=== PATIENT | female | born 1945 | race Caucasian/White ===

== ENCOUNTER → 2023-08-13 11:45 | Outpatient (REF) | payer MEDICARE, BC, SELFPAY ==
[2023-08-13 10:24] LABS: Iron 58 ug/dl (37-170)
[2023-08-13 10:33] LABS: Percent Saturation 16 % (20-50); Total Iron Binding Capacity 350 ug/dl (265-497)
[2023-08-13 10:58] LABS: Ferritin 64.1 ng/ml (11.1-264.0)
== END ==
LOC: OIDL 11:45
PROVIDERS: ATTENDING PHYSICIAN Internal Medicine Hematology & Oncology
DX: C34.11 Malignant neoplasm of upper lobe, right bronchus or lung (principal)
CPT/HCPCS: 82728; 83540; 83550

== ENCOUNTER 2023-08-25 18:37 | Inpatient (IN) | payer MEDICARE, BC, SELFPAY ==
[2023-08-25] VITALS (14 sets, daily range): BP systolic 100–123; BP diastolic 48–69; BMI 24.2
[2023-08-25 15:12] LABS: % Basophils 0.9 % (0-2); % Eosinophils 0.2 % (0-6); % Immature Granulocytes 0.7 % (0-0.5); % Lymphocytes 13.4 % (20.5-51.1); % Monocytes 3.2 % (1.7-9.3); % Neutrophils 81.6 % (42.2-75.2); Absolute Lymphocytes 0.6 10^3/uL (1.2-3.4); Absolute Monocytes 0.1 10^3/uL (0.1-0.6); Absolute Neutrophils 3.6 10^3/uL (1.4-6.5); Mean Corp Hgb Conc. 33.6 g/dL (33.0-37.0); Mean Corpuscular Hgb 26.8 pg (27.0-31.0); Mean Corpuscular Volume 79.8 fL (81.0-99.0); Mean Platelet Volume 8.2 fL (7.4-10.4); Nucleated Red Blood Cells % 0 %; Red Blood Cell Count 1.68 10^6/uL (4.20-5.40); Red Cell Dist. Width 19.9 % (11.5-14.5); White Blood Cell Count 4.4 10^3/uL (4.8-10.8)
[2023-08-25 15:29] LABS: Hematocrit 13.4 % (37.0-47.0); Hemoglobin 4.5 g/dL (12.0-16.0)
[2023-08-25 15:30] LABS: Platelet Count 7 10^3/uL (130-400)
[2023-08-25 15:47] LABS: ALT (SGPT) 22 U/L (0-35); AST (SGOT) 21 U/L (14-36); Albumin 2.7 g/dl (3.5-5.0); Alkaline Phosphatase 108 U/L (38-126); Blood Urea Nitrogen 35 mg/dl (7-17); Calcium 8.4 mg/dl (8.4-10.2); Carbon Dioxide 18 mmol/L (22-30); Chloride 104 mmol/L (98-107); Glucose 104 mg/dl (70-99); Sodium 135 mmol/L (135-145); Total Bilirubin 0.6 mg/dl (0.2-1.3); Total Protein 4.8 g/dl (6.3-8.2); eGFR > 60.00
--- NOTE | 2023-08-25 16:05 | ED.GENMED ---
History of Present Illness
General
Chief Complaint: Weakness
Source: patient
Exam Limitations: none
Time Seen by Provider: 08/25/23 15:10
Nursing documentation reviewed up to this point in time: agreed with
Travel History
Have you had any contact with someone who has COVID-19?: No
Do you have any symptoms of coronavirus? Fever > 100 degrees, chills, cough, shortness of breath, sore throat, loss of taste or smell, muscle aches, or headache?: No
History of Present Illness
History of Present Illness:
pt is a 78 y/o F with h/o dvt on eliquis (2.5 mg bid), lung ca with mets to colon on chemo
followed by dr. zuniga and just got referral to [facility] for colon mass but it is nonop
here with low energy, fatigue, exertional dyspnea today and black stool
pt says that her last chemo was 5 days ago
the following day she got neulasta shot
she normally gets constapited for a few days following her chemo which she was
had small BM a few days ago that was brown
3 days ago started having epistaxis after nose blowing; pt has chronic congestion
she stopped her eliquis that tnight
has continued to have nosebleeds off and on which stop on their own
but she felt her stomach was upset yesterday
then today had moderate sized black loose stool and felt lightheaded, winded with walking just 10 feet
called her pcp who told her to com ein
no ongoign active bleeding
has never had blood transfusion before
no fever, chills, cp, vomiting blood
Review of Systems
Review of Systems
Allergies reviewed?: Yes
All Other Systems: Not applicable
Phy Exam
Physical Exam
Physical Exam:
GENERAL: Alert , in no apparent distress, pale
EYE: pupils equal and reactive, pale
NECK: Supple
ENT: o/p clr, mmm.
CARDIAC: HR 100; .no edema
LUNGS: Clear breath sounds bilaterally, no acute respiratory distress, no wheezes/rales/rhonchi
ABDOMEN: Soft, without focal tenderness, no r/g, no cvat, normal bowel sounds
rectal done by RN with temperature: heme pos black stool per RN;
NEUROLOGICAL: Alert and oriented, no focal neuro deficits
SKIN: Warm and dry, skin intact. very pale
MUSCULOSKELETAL: No edema, well perfused. neg camilo's sign
PSYCH: Normal and appropriate interaction.
Course
Orders/Labs/Results
Orders:
Orders
08/25/23 Breakfast
Clear Liquid
At Your Request: Full Participation
Does patient need a safe tray?: No
08/25/23 14:28
EKG [Electrocardiogram (*1)] Urgent
Reason for Study: Fatigue / Weakness
08/25/23 14:29
EKG- Treatment ONCE
08/25/23 14:44
Type+Screen Urgent
CMP [Comprehensive Metabolic Panel] Urgent
Complete Blood Count/With Diff Urgent
Direct Bilirubin Urgent
Comment: ADD ON
Ferritin Urgent
Comment: ADD ON
Haptoglobin [S] Urgent
Comment: ADD ON
Iron Urgent
Comment: ADD ON
LDH Urgent
Comment: ADD ON
Reticulocyte Count Urgent
Comment: ADD ON
Total Iron Binding Urgent
Comment: ADD ON
08/25/23 16:04
Add On- LAB Urgent
Tests Added?: iron, ferritin, tibc
08/25/23 16:17
Blood Bank Products [* Blood Bank Products] Urgent
Blood Bank Products: *Packed RBC Leuko(PRBC's)
Quantity: 2
Transfuse Today: Yes
Reason: Bleeding
08/25/23 16:24
Pantoprazole [Protonix IV] 40 mg IV NOW STA
08/25/23 16:26
ONCOLOGY CONSULT Urgent
Consulting Provider: Jasmyn Salguero
Was physician already notified: Yes
08/25/23 16:30
Pantoprazole 80 mg/100 ml Nss [Protonix] 80 mg in 100 ml IV Q10H
08/25/23 16:46
Blood Bank Products [* Blood Bank Products] Urgent
Blood Bank Products: Platelet Leukoreduced Irr
Quantity: 1
Transfuse Today: Yes
Reason: Thrombocytopenia
08/25/23 17:20
Add On- LAB Routine
Tests Added?: LDH, direct bili, haptoglobin, retic
08/25/23 17:30
Platelet Antibodies Indirect [S] Routine
Platelet Assoc Ab, Direct [S] Routine
08/25/23 17:49
Admit/Transfer Patient As Directed
Co-Sign Provider:
Level of Care: Inpatient admission
Assign to:: Telemetry
Physician / Group: batsheva flores
Diagnosis: acute blood loss anemia
Reason for Telemetry: Other
Other Reason for Telemetry: acute blood loss anemia
Date to Stop Telemetry: 08/27/23
Time to Stop Telemetry: 11:00
Reason for Hospitalization: acute blood loss anemia
Expected length of stay greater than two midnights?: Yes
ELOS- Estimated Length of Stay in days: 3
I certify the patient meets the requirements for IP care: Yes
08/25/23 17:51
Code Status As Directed
Resuscitation Status: Full Code
08/25/23 19:21
Melatonin 5 mg PO HS PRN
08/25/23 19:21
Activity As Directed
Activity Level: As Tolerated
Compression Sleeves [Pneumatic Compression Sleeves] As Directed
Type: Thigh high
INT (Intravenous Needle Therapy) As Directed
Comment: Place 2 IV catheters of the largest bore possible until stable
Orthostatic Vital Signs As Directed
Orthostatic VS Frequency: Now
Comment: then every four hours for twenty-four hours
Vital Signs As Directed
Frequency: Per unit guidelines
DX Deep Vein Thrombosis Video Routine
08/25/23 20:00
Sodium Chloride [[place], Saline Mist] 2 sprays NASAL BID
08/25/23 22:00
CBC/No Diff [Complete Blood Count/No Diff] Routine
Rosuvastatin Calcium [Crestor] 10 mg PO HS
08/26/23 06:00
Basic Metabolic Panel IN AM
Complete Blood Count/No Diff IN AM
08/26/23 07:00
Levothyroxine [Synthroid] 25 mcg PO DAILY@0700
08/26/23 08:00
Cholecalciferol (Vitamin D3) [VITAMIN D3 (cholecalciferol)] 50 mcg PO DAILY
Lactobac/Bifidobac [Visbiome] 1 cap PO DAILY
Pantoprazole [Protonix IV] 40 mg IV BID
Tiotropium [place] 2.5 Mcg [Spiriva Respimat 2.5 Mcg] 2 puff INH R DAILY
08/27/23 06:00
Basic Metabolic Panel IN AM
Complete Blood Count/No Diff IN AM
08/27/23 11:00
DC Protocol for Telemetry ONCE
08/28/23 06:00
Basic Metabolic Panel IN AM
Complete Blood Count/No Diff IN AM
08/29/23 06:00
Basic Metabolic Panel IN AM
Complete Blood Count/No Diff IN AM
08/30/23 06:00
Basic Metabolic Panel IN AM
Complete Blood Count/No Diff IN AM
Abnormal Lab Results
08/25/23
14:44
WBC 4.4 L 10^3/uL
(4.8-10.8)
RBC 1.68 L 10^6/uL
(4.20-5.40)
Hgb 4.5 L* g/dL
(12.0-16.0)
Hct 13.4 L* %
(37.0-47.0)
MCV 79.8 L fL
(81.0-99.0)
MCH 26.8 L pg
(27.0-31.0)
RDW 19.9 H %
(11.5-14.5)
Plt Count 7 L* 10^3/uL
(130-400)
Absolute Lymphs (auto) 0.6 L 10^3/uL
(1.2-3.4)
Immature Gran % 0.7 H %
(0-0.5)
Neutrophils % 81.6 H %
(42.2-75.2)
Lymphocytes % 13.4 L %
(20.5-51.1)
Retic Count 0.3 L %
(0.4-2.8)
Carbon Dioxide 18 L mmol/L
(22-30)
BUN 35 H mg/dl
(7-17)
Glucose 104 H mg/dl
(70-99)
% Saturation 53 H %
(20-50)
Direct Bilirubin 0.5 H mg/dl
(0.0-0.4)
Lactate Dehydrogenase 118 L U/L
(120-246)
Total Protein 4.8 L g/dl
(6.3-8.2)
Albumin 2.7 L g/dl
(3.5-5.0)
Crossmatch IS Only See Detail
08/25/23 14:44
08/25/23 14:44
Vital Signs
Initial and Last Documented VS:
Initial Vital Signs
Pulse Resp BP
98 28 111/48
08/25/23 14:30 08/25/23 14:30 08/25/23 14:30
Last Documented Vital Signs
Temp Pulse Resp BP Pulse Ox
98.0 F 100 27 110/60 100
08/25/23 19:54 08/25/23 18:30 08/25/23 18:30 08/25/23 19:54 08/25/23 19:54
MDM/Problems Addressed
Differential Diagnosis Includes:
anemia, GI bleed
MDM/Problems Addressed:
78 y/o F with ho metastatic lung ca to the colon on chemo; had last chemo on friday, got a shot of neulasta on ; started having spontaneous epistaxis starting friday with blowing her nose; she is on eliquis for h/o DVT, 2.5 mg bid; she
stopped it friday night; continued to have some controlled nose bleeds all weekend from both nostrils; then 1 episode black stool today, loose. with exertional dyspnea; bp is stable, hr is 100, afebrile; pt is pale, no active bleeding on exam; heme
POS black stool, hg is 4.5 and plt are 7; previous plt is 300s;
pt was consented for blodo and platelets
is poke with internal combustion engine subassembler ooncologist dr. mccann who agreed with plan
IV PPI drip
and i let dr. carlson know from GI
admit to medicine.
*Critical Care Note
Total Time (30-74mins, 75-104mins- exclusive of procedures): Not Applicable
ED Attending Note
-
Portions of this chart may have been created with voice recognition software.� Occasional wrong word or��sound alike� substitutions may have occurred due to the inherent limitations of voice recognition software.
Discharge Plan
Departure
Patient Disposition: Admit
Date of Disposition: 08/25/23
Time of Disposition: 16:25
Admit to: Med/Surg
Presentation/result/management discussed w/ accepting MD/DO: Hospitalist
Condition: Fair
Covid-19: Not Applicable
Discharge Problem:
Symptomatic anemia, Thrombocytopenia, GI bleed
Interventions
Interventions:
*Risk Screen - Suicide Last Done: 08/25/23 14:30
*General Assessment Last Done: 08/25/23 14:32
*Neglect/Abuse Screening Last Done: 08/25/23 14:30
ED- Fall Risk Assessment Last Done: 08/25/23 14:33
*ED COVID-19 Vaccine History Last Done: 08/25/23 14:36
*Nursing Disposition Last Done: 08/25/23 19:36
LL-Aaywgq-Jxkaeyyfvo Assessment Last Done: 08/25/23 15:51
ED- Cardiac Assessment Last Done: 08/25/23 15:51
ED-EENT Assessment Last Done: 08/25/23 15:51
ED- Neurological Assessment Last Done: 08/25/23 15:51
ED- Pulmonary Assessment Last Done: 08/25/23 15:51
Discharge Date and Time
Discharge Date/Time: 08/25/23 19:36
[2023-08-25 16:25] LABS: Iron 153 ug/dl (37-170)
[2023-08-25 16:35] LABS: Percent Saturation 53 % (20-50); Total Iron Binding Capacity 285 ug/dl (265-497)
[2023-08-25] MEDS: PROTONIX IV 40 MG IV (17:05)
[2023-08-25] MEDS: PROTONIX 100 IV (17:06)
--- NOTE | 2023-08-25 17:28 | HPS.HSE ---
Addendum entered and electronically signed by Cliff Mejia MD 08/25/23 18:05:
I saw and examined the patient.
The COMMERCIAL SEWING INSTRUCTOR's note was reviewed and I agree with the note.
Comment:
78-year-old female past medical history of lung cancer with metastasis to the colon status post recent colonoscopy and referral to [facility]. Not a surgical candidate and plans for chemotherapy. Received chemotherapy 1 week ago.
Coming in with severe weakness and tarry stool. Denies lightheadedness or dizziness. States stopping Eliquis on Friday night. Patient stated she got second opinion at [facility] who recommended against surgery and recommended to
continue with chemotherapy. Per [facility], if no improvement and repeat PET scan then plan to consider newly approved chemo/immunotherapy per patient. No nausea or vomiting or hematemesis.
Gen: pale,
cards s1 s2 rrr
pulm cta bl
abd +bs, soft, non distended, non tender
neuro aox 3. non focal grossly intact. CN II-XII intact
Psych pleasant
ext no edema
Impression
Symptomatic anemia
Pancytopenia likely secondary to chemotherapy
Lower GI bleed likely secondary to colonic mass exacerbated by Eliquis and severe thrombocytopenia
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
Hypothyroidism
Insomnia
History of DVT
Plan
Will Receive 2 units of PRBC and 1 unit platelet
Check H&H later tonight and transfuse as needed
Transfuse for hemoglobin less than 7 or platelet less than 10K
Clear liquid diet
Per gastroenterology Dr. Felipe no acute GI intervention is required as patient with severe thrombocytopenia and patient with known colonic mass. Recommending oncology evaluation.
If any profuse bleeding and repeat episode consider CT angiogram abdomen pelvis.
Oncology has been consulted
PPI twice daily and DC drip
DVT prophylaxis SCDs setting of severe thrombocytopenia
Prognosis guarded
Discussed with spouse at bedside in detail.
I spent a total of 78 minutes with the patient or on the floor. More than 50% of this time involved counseling and coordination of care.
Original Note:
Family Physician
-
Family Physician: Margaret Diaz
Chief Complaint
-
black stools
History of Present Illness
78 y/o F with h/o dvt on eliquis (2.5 mg bid), lung ca with mets to colon on chemo followed by dr. zuinga presented to us with fatigue, weakness, exertional dyspnea for past few days. Stated black loose stool today. Patient was noted to have
nosebleed on Friday, which stopped by itself. Patient stopped taking Eliquis tonight. Patient stated some headache, dizziness. Denied fever, chills, chest pain.. Patient does have some abdominal tenderness. Denied dysuria hematuria. She got
her chemo last Friday.
On arrival noted to have a hemoglobin of 4.5, platelets 7. 2 units of PRBCs and 1 unit of platelets ordered. Admitting for further management.
Medical History
Past Medical History
Past Medical History: Reports Other
Additional Past Medical History:
Lung cancer mets to the colon
Left upper extremity DVT
Hypothyroidism
Hyperlipidemia
Past Surgical History: Reports None
Social History
Tobacco: Former Smoker
Alcohol: Occasional
Drug: None
Personal:
Living: With Family
Family History
Family History: Not pertinent
Allergies / Home Medications
Allergies reflects when Allergies were last updated in [employer].
Home Medications with original date entered in [employer]
Allergy/Medication List:
Allergies
Allergy/AdvReac Type Severity Reaction Status Date / Time
cat dander Allergy Unknown Unknown Verified 08/25/23 14:41
seasonal Allergy Unknown Uncoded 08/25/23 14:41
Home Medications
rosuvastatin 10 mg tablet 10 mg PO HS 02/12/22
umeclidinium 62.5 mcg-vilanterol 25 mcg/actuation powdr for inhalation (Anoro Ellipta) 1 inh inhalation R DAILY 07/01/22
cholecalciferol (vitamin D3) 50 mcg (2,000 unit) capsule (Vitamin D3) 50 mcg PO DAILY 11/11/22
lactobacillus comb no.10 20 billion cell capsule (Probiotic) 20,000 mmu cells PO DAILY 11/11/22
loratadine 10 mg tablet (Claritin) 10 mg PO . DIRECTED 11/11/22
ondansetron 8 mg disintegrating tablet 8 mg PO Q8H PRN nausea 11/11/22
prochlorperazine maleate 10 mg tablet (Compazine) 10 mg PO Q6H PRN nausea 11/11/22
Gemzar + Carboplatin 1 dose IV Q3W 08/25/23
apixaban 2.5 mg tablet (Eliquis) 2.5 mg PO BID 08/25/23
gemcitabine 1 gram intravenous solution 0 mg IV Q4W 08/25/23
levothyroxine 25 mcg tablet 25 mcg PO DAILY 08/25/23
melatonin 5 mg tablet 5 mg PO HS PRN insomnia 08/25/23
Review of Systems
-
Constitutional: Reports No Symptoms
EENT: Reports No Symptoms
Respiratory: Reports Trouble Breathing
Cardiac: Reports No Symptoms
Abdomen/GI: Reports Bloody Stools
: Reports No Symptoms
Musculoskeletal: Reports No Symptoms
Skin: Reports No Symptoms
Neurological: Reports Dizzy, Headache and Weakness
Endocrine: Reports No Symptoms
Hematologic/Lymphatic: Reports No Symptoms
Psych: Reports No Symptoms
Physical Exam
Vital Signs
Vital Signs
Temp Pulse Resp BP Pulse Ox
97.2 F 96 20 109/52 100
08/25/23 14:35 08/25/23 17:12 08/25/23 17:12 08/25/23 17:12 08/25/23 17:12
Physical Exam
General: Well Developed, Well Nourished and No Apparent Distress
HEENT: NormoCephalic, Moist mucous membranes and Atraumatic
Respiratory: Clear
Cardiac: S1/S2 and Regular Rhythm; No Murmur or Rub
GI: Soft, Non Tender, Non Distended and Normal Bowel Sounds; No Organomegaly
Rectal: Deferred by Provider
Musculoskeletal: No Clubbing, No Cyanosis and No Edema
Skin: No Rash
Neuro: AO x 3 and Nonfocal/grossly intact
Psych: Calm
Laboratory Results
-
08/25/23 14:44
08/25/23 14:44
Laboratory Results
Total Bilirubin 0.6 mg/dl (0.2-1.3) 08/25/23 14:44
AST 21 U/L (14-36) 08/25/23 14:44
ALT 22 U/L (0-35) 08/25/23 14:44
Alkaline Phosphatase 108 U/L (38-126) 08/25/23 14:44
Data Reviewed
-
Lab Data: Labs Reviewed by me
Impression/Plan
-
#blacks stools with exertional dyspnea/fatigue likely acute blood loss anemia
-heme positive black stool
-hgb 4.5
-Transfusing with 2 units of blood
-Trend hemoglobin
-transfuse if hgb less than 7 and platelets less than 10
-cbc at 10pm
-PPI BID
-clear liquid diet
#metastatic lung ca/colon ca/pancytopenia
-wbc 4.4,hgb 4.5, platelets 7
-followed by Dr. Zuniga
-Transfusing with 2 units of PRBCs and 1 unit of platelets
#hxt of right upper extremity DVT
-Hold Eliquis
# Hypothyroidism
-Levothyroxine
#-Hyperlipidemia
-Statin
# DVT prophylaxis
-SCD
# CODE STATUS
-Full code
[2023-08-25 18:05] LABS: Reticulocyte Count 0.3 % (0.4-2.8)
[2023-08-25 18:11] LABS: Direct Bilirubin 0.5 mg/dl (0.0-0.4); LDH 118 U/L (120-246)
--- NOTE | 2023-08-25 19:08 | CON.ONC ---
Impression
Impression
Gemcitabine-associated thrombocytopenia
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
Non-small cell lung cancer, metastatic, heavily pretreated
Epistaxis
Dark stools
Plan
Plan
Patient is without evidence of microangiopathic process but coags sent.
Suspect her cytopenias are due to chemotherapy in setting of multiple previous regimens.
I am not sure what drug was recommended for her at [place]. We will call for the visit report. She would have to be significantly dose reduced in order to stay on the current regimen.
Agree with blood transfusions. Please also transfuse platelets.
Thank you for consultation will follow along with you.
Patient History
History of Present Illness
78-year-old woman, patient of Dr. Rodriguez for metastatic non-small cell lung cancer. She is heavily pretreated, started with carboplatin, Alimta, and Keytruda. She apparently had a mixed response. More recently she was treated with Cyramza
Taxotere, again with mixed response. She started gemcitabine and carboplatin on 131 and had cycle 1 day 8 on August 20. She is also on Eliquis 2.5 twice daily. A few days ago she started to have nosebleeds and held the Eliquis. Today, she
developed dark stools and fatigue. In the ED she was found to have a hemoglobin of 4.5 with platelets of 7. By comparison, blood counts on 08/18/2023 showed hemoglobin of 9.4 and platelets of 200. Admits to exertional dyspnea. Of note, recent
Nex[employer] sequencing showed K-samia G12V, T p53 and KEAP1 mutations. She was seen at [place] within the last week and had was advised that there is a new drug that was just approved by the FDA that she would be a candidate for. Currently, she is
without complaint other than fatigue. She is awake and alert, sitting in hospital bed in the ER.
Past-Medical/Surgical History
PMHx:
Asthma, high cholesterol, osteoarthritis
PSHx:
Facelift, pilonidal cyst surgery
Soc:
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
Fam:
Mother had stomach cancer.
Patient Medication
Medication Instructions Recorded Confirmed Last Taken Type
rosuvastatin 10 mg tablet 10 mg PO HS 02/12/22 08/25/23 07/01/22 History
umeclidinium 62.5 mcg-vilanterol 1 inh inhalation R DAILY 07/01/22 08/25/23 07/01/22 History
25 mcg/actuation powdr for
inhalation (Anoro Ellipta)
cholecalciferol (vitamin D3) 50 50 mcg PO DAILY 11/11/22 08/25/23 Unknown History
mcg (2,000 unit) capsule (Vitamin
D3)
lactobacillus comb no.10 20 20,000 mmu cells PO DAILY 11/11/22 08/25/23 Unknown History
billion cell capsule (Probiotic)
loratadine 10 mg tablet (Claritin) 10 mg PO . DIRECTED 11/11/22 08/25/23 Unknown History
ondansetron 8 mg disintegrating 8 mg PO Q8H PRN nausea 11/11/22 08/25/23 Unknown History
tablet
prochlorperazine maleate 10 mg 10 mg PO Q6H PRN nausea 11/11/22 08/25/23 Unknown History
tablet (Compazine)
Gemzar + Carboplatin 1 dose IV Q3W 08/25/23 08/25/23 08/13/23 History
apixaban 2.5 mg tablet (Eliquis) 2.5 mg PO BID 08/25/23 08/25/23 3 Days Ago History
~08/22/23
gemcitabine 1 gram intravenous 0 mg IV Q4W 08/25/23 08/25/23 08/20/23 History
solution
levothyroxine 25 mcg tablet 25 mcg PO DAILY 08/25/23 08/25/23 Unknown History
melatonin 5 mg tablet 5 mg PO HS PRN insomnia 08/25/23 08/25/23 Unknown History
Active Medications
Generic Name Dose Route Start Last Admin
Trade Name Eloy PRN Reason Stop Dose Admin
Pantoprazole Sodium 80 mg in 100 mls @ 10 mls/hr 08/25/23 16:30 08/25/23 17:06
Protonix IV 100 mls
Q10H ROMAN Administration
8 MG/HR
Review of Systems
-
History Source: Patient and Records
All Other Systems: Reviewed and Negative
Constitutional: Reports Fatigue and Weakness
EENT: Reports No Symptoms
Respiratory: Reports Cough and Trouble Breathing
Cardiac: Reports No Symptoms
GI: Reports Black Stools
: Reports No Symptoms
Musculoskeletal: Reports No Symptoms
Skin: Reports No Symptoms
Neuro: Reports No Symptoms
Endocrine: Reports No Symptoms
Hematologic/Lymphatic: Reports Bleeding
Allergy / Immunology: Reports No Symptoms
Psych: Reports No Symptoms
Physical Exam
-
General: Well Developed, Well Nourished, Comfortable and Other (Pale)
HEENT: Moist Mucous Membranes; Negative Jaundice
Cardiology: Normal Sinus Rhythm, S1 and S2
Pulmonary: Rhonchi
GI: Soft
Musculoskeletal: No Cyanosis and No Edema
Neurology: Non Focal
Skin: Warm and Dry
Hematologic / Lymphatic: No Lymphadenopathy
Psych: Calm and Intact Judgement/Insight
Labs
Lab Results
WBC 4.4 10^3/uL (4.8-10.8) L 08/25/23 14:44
RBC 1.68 10^6/uL (4.20-5.40) L 08/25/23 14:44
Hgb 4.5 g/dL (12.0-16.0) L* 08/25/23 14:44
Hct 13.4 % (37.0-47.0) L* 08/25/23 14:44
MCV 79.8 fL (81.0-99.0) L 08/25/23 14:44
MCH 26.8 pg (27.0-31.0) L 08/25/23 14:44
MCHC 33.6 g/dL (33.0-37.0) 08/25/23 14:44
RDW 19.9 % (11.5-14.5) H 08/25/23 14:44
Plt Count 7 10^3/uL (130-400) L* 08/25/23 14:44
MPV 8.2 fL (7.4-10.4) 08/25/23 14:44
Abs Immat Gran (auto) 0.0 10^3/uL (0-0.05) 08/25/23 14:44
Absolute Neuts (auto) 3.6 10^3/uL (1.4-6.5) 08/25/23 14:44
Absolute Lymphs (auto) 0.6 10^3/uL (1.2-3.4) L 08/25/23 14:44
Absolute Monos (auto) 0.1 10^3/uL (0.1-0.6) 08/25/23 14:44
Absolute Eos (auto) 0.0 10^3/uL (0-0.7) 08/25/23 14:44
Absolute Basos (auto) 0.0 10^3/uL (0-0.2) 08/25/23 14:44
Immature Gran % 0.7 % (0-0.5) H 08/25/23 14:44
Neutrophils % 81.6 % (42.2-75.2) H 08/25/23 14:44
Lymphocytes % 13.4 % (20.5-51.1) L 08/25/23 14:44
Monocytes % 3.2 % (1.7-9.3) 08/25/23 14:44
Eosinophils % 0.2 % (0-6) 08/25/23 14:44
Basophils % 0.9 % (0-2) 08/25/23 14:44
Creatinine 0.7 mg/dL (0.6-1.0) 08/25/23 14:44
Personally reviewed peripheral smear: Very few platelets, agree with automated count. No RBC fragments.
Vital Signs
Vital Signs
Temp Pulse Resp BP Pulse Ox
98 F 100 27 115/69 99
08/25/23 18:10 08/25/23 18:30 08/25/23 18:30 08/25/23 18:30 08/25/23 18:15
--- NOTE | 2023-08-25 19:30 | PTCARENOTE ---
Pt received to floor awake & alert x3; very fatigued & weak. 1st unit PRBC's infusing; no adverse reaction noted.
[2023-08-25] MEDS: OCEAN, SALINE MIST NASAL (22:00)
--- NOTE | 2023-08-25 23:00 | PTCARENOTE ---
Pt w/nosebleed from Rt nostril after pt blew nose after sneezing. After about 45 min, bleeding stopped w/pressure applied first by pt, then by nurse. Instructions given to pt to avoid blowing nose and sneezing if possible.
[2023-08-25] MEDS: CRESTOR 10 MG PO (23:15)
[2023-08-26] VITALS (19 sets, daily range): BP systolic 100–132; BP diastolic 49–86; PULSE 91–98; BMI 24.2
--- NOTE | 2023-08-26 06:00 | SUR.OPER ---
One more minor nose bleed which resolved quickly. 2 Units PRBC's & 1 Unit platelets infused this shift w/no adverse effects noted.
[2023-08-26 07:07] LABS: Mean Corp Hgb Conc. 34.3 g/dL (33.0-37.0); Mean Corpuscular Hgb 27.9 pg (27.0-31.0); Mean Corpuscular Volume 81.4 fL (81.0-99.0); Mean Platelet Volume 9.5 fL (7.4-10.4); Red Blood Cell Count 2.15 10^6/uL (4.20-5.40); Red Cell Dist. Width 16.2 % (11.5-14.5); White Blood Cell Count 3.1 10^3/uL (4.8-10.8)
[2023-08-26 07:15] LABS: Blood Urea Nitrogen 30 mg/dl (7-17); Calcium 7.7 mg/dl (8.4-10.2); Carbon Dioxide 21 mmol/L (22-30); Chloride 111 mmol/L (98-107); Estimated Creatinine Clearance 55 ml/min; Glucose 87 mg/dl (70-99); Potassium 3.5 mmol/L (3.5-5.1); Sodium 134 mmol/L (135-145); eGFR > 60.00
[2023-08-26 07:17] LABS: INR 1.16; PT 14.6 Sec (11.4-14.6)
[2023-08-26 07:18] LABS: APTT 35.4 Sec (23.4-35.0); Fibrinogen 424 MG/DL (199-459); Hematocrit 17.5 % (37.0-47.0); Platelet Count 18 10^3/uL (130-400)
[2023-08-26 07:21] LABS: D-Dimer 0.46 ug/mlFEU (0.00-0.50)
[2023-08-26] MEDS: SPIRIVA RESPIMAT 2.5 MCG 2 PUFF INH (07:22)
[2023-08-26] MEDS: STRIVERDI RESPIMAT 2 PUFF INH (07:22)
[2023-08-26] MEDS: SYNTHROID 25 MCG PO (07:52)
[2023-08-26 08:04] LABS: Hepatitis C Antibody Negative (Negative)
[2023-08-26] MEDS: VITAMIN D3 (cholecalciferol) 50 MCG PO (09:49)
[2023-08-26] MEDS: OCEAN, SALINE MIST 2 SPRAYS NASAL ×2 (09:49→21:42)
[2023-08-26] MEDS: VISBIOME 1 CAP PO (09:49)
[2023-08-26] MEDS: NSS (PRESERVATIVE FREE) 10 ML IV ×2 (09:55→21:42)
[2023-08-26] MEDS: PROTONIX IV 40 MG IV ×2 (09:55→21:42)
--- NOTE | 2023-08-26 12:00 | W.PN.HOSP.TC ---
Today's Communication/Plan
-
Transfuse PRBC
Trend CBC
onc recs
ENT eval
Assessment / Plan
Assessment / Plan
#Lower GI bleed likely secondary to colonic mass exacerbated by Eliquis and severe thrombocytopenia
-heme positive black stool on admisison
-hgb 6 and will transfuse additional 1u today and recheck later today
-Trend hemoglobin
-transfuse if hgb less than 7 and platelets less than 10
-PPI BID
-full liquids and ADAT
-Per gastroenterology Dr. Felipe no acute GI intervention is required as patient with severe thrombocytopenia and patient with known colonic mass.� Recommending oncology evaluation.�
-If any profuse bleeding and repeat episode consider CT angiogram abdomen pelvis.
-Oncology on board
#Epistaxis likely in setting of thrombocytopenia and worsened by Eliquis
-saline spray BID
-Holding eliquis
-ENT eval
#Pancytopenia likely worsen due to severe chemotherapy
#Symptomatic anemia worsened due to chemotherapy/Eliquis/suspected lower GI bleed and epistaxis
-Hemoglobin is 6 and will transfuse additional 1 unit of PRBC
-Platelets at 18 K. Trend and transfuse if less than 10 or otherwise if with acute bleeding
-Per oncology no evidence of microangiopathic hemolysis.
-Trend CBC and transfuse
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
-not a surgical candidate at moment per [facility] per pt
-Onc on board.
#hxt of right upper extremity DVT
-Hold Eliquis
# Hypothyroidism
-Levothyroxine
#-Hyperlipidemia
-Statin
# DVT prophylaxis
-SCD
# CODE STATUS
-Full code
Long-term prognosis guarded
Anticipated Discharge: > 48 hours
Subjective/Interval History
-
Date of Service: August 26, 2023
feeling better
No further black tarry stools
Had episode of severe epistaxis overnight and remains with intermittent epistaxis mild
Objective Data
-
Labs:
Laboratory Results
08/26/23 08/26/23
06:00 06:25
WBC Cancelled 3.1 L
Hgb Cancelled 6.0 L* D
Hct Cancelled 17.5 L*
Plt Count Cancelled 18 L* D
PT 14.6
INR 1.16
APTT 35.4 H
Sodium 134 L
Potassium 3.5
Chloride 111 H
Carbon Dioxide 21 L
BUN 30 H
Creatinine 0.7
Glucose 87
Calcium 7.7 L
Vital Signs:
Vital Signs
Temp Pulse Resp BP Pulse Ox
98.5 F 95 18 112/49 98
08/26/23 11:35 08/26/23 11:35 08/26/23 11:35 08/26/23 11:35 08/26/23 11:35
I&O
08/25/23 08/26/23 08/27/23
06:59 06:59 06:59
Intake Total 829 / 829 0 / 0
Balance 829 / 829 0 / 0
Physical Exam
-
General: Well Developed and No Apparent Distress
HEENT: Normocephalic, Atraumatic, Moist Mucous Membranes and Other (R chest port placed )
Respiratory: Clear to Auscultation
Cardiac: Regular Rhythm and S1/S2; Negative Murmur, Rub or Gallop
GI: Soft, Nontender, Nondistended and Normal Bowel Sounds; Negative Organomegaly
Rectal: Deferred by Provider
Musculoskeletal: No Clubbing, No Cyanosis and No Edema
Skin: Negative Rash
Neuro: Awake, AO x 3, No Motor Deficits and Nonfocal/Grossly Intact
Psych: Calm
Data Reviewed
-
Total Time Spent with Patient (in minutes): 55
--- NOTE | 2023-08-26 13:08 | CON.MD ---
Consultation - Medical
-
Epistaxis
78 yo c metastatic lung CA presented c weakness, anemia, lower GI bleed from colonic met
Was on Eliquis, being held
Pancytopenia from chemo
Has been also having mostly R sided epistaxis last few days
Pt not actively bleeding
Hgb - 6.o, wbc - 3.1, plt - 16
Nose - dried blood and scab more R than L, no active bleeding
OC - dry
Epistaxis
Mostly due to thrombocytopenia
Cauterized some raw mucosa with silver nitrate
Polysporin ointment applied
Would cont with ointment qhs and prn
Contact again if needed
[2023-08-26 16:38] LABS: % Basophils 0.6 % (0-2); % Immature Granulocytes 1.2 % (0-0.5); % Lymphocytes 18.4 % (20.5-51.1); % Neutrophils 74.8 % (42.2-75.2); Absolute Lymphocytes 0.6 10^3/uL (1.2-3.4); Absolute Monocytes 0.2 10^3/uL (0.1-0.6); Absolute Neutrophils 2.6 10^3/uL (1.4-6.5); Hemoglobin 7.1 g/dL (12.0-16.0); Mean Corp Hgb Conc. 35.3 g/dL (33.0-37.0); Mean Corpuscular Hgb 29.1 pg (27.0-31.0); Mean Corpuscular Volume 82.4 fL (81.0-99.0); Mean Platelet Volume 9.5 fL (7.4-10.4); Nucleated Red Blood Cells % 0 %; Red Blood Cell Count 2.44 10^6/uL (4.20-5.40); Red Cell Dist. Width 15.7 % (11.5-14.5); White Blood Cell Count 3.4 10^3/uL (4.8-10.8)
[2023-08-26 16:52] LABS: Hematocrit 20.1 % (37.0-47.0)
[2023-08-26 16:53] LABS: Platelet Count 11 10^3/uL (130-400)
--- NOTE | 2023-08-26 16:58 | CM ---
Alert awake oriented patient who lives with her Juan who lives in a 3 story home with 3 steps to enter and an elevator.She is independent in driving and in all activities of daily living.Offered VN she declined.Pt receiving blood
transfusion today.
No adaptive devices
Never had VN/SNF
Pharmacy [facility]
PCP Margaret Darden
PLAN Home declined VN
--- NOTE | 2023-08-26 18:32 | W.PN.ONC ---
Today's Communication / Plan
-
continue transfusion support
Impression
Impression
Gemcitabine-associated thrombocytopenia
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
Non-small cell lung cancer, metastatic, heavily pretreated
Epistaxis
Dark stools
Plan
Plan
Patient is without evidence of microangiopathic process but coags sent.
Suspect her cytopenias are due to chemotherapy in setting of multiple previous regimens.
I am not sure what drug was recommended for her at [place]. We will call for the visit report. She would have to be significantly dose reduced in order to stay on the current regimen.
Agree with blood transfusions for HGB <8 and platelets <20
Thank you for consultation will follow along with you.
Subjective/Objective
Subjective/Objective
less fatigued--no overt bleeding
Vital Signs:
Vital Signs
Temp Pulse Resp BP Pulse Ox
98.9 F 95 18 132/69 99
08/26/23 17:20 08/26/23 17:20 08/26/23 17:20 08/26/23 17:20 08/26/23 16:40
Lab Results:
Laboratory Data
WBC Cancelled 08/26/23 17:00
Hgb Cancelled 08/26/23 17:00
Plt Count Cancelled 08/26/23 17:00
PT 14.6 Sec (11.4-14.6) 08/26/23 06:25
INR 1.16 08/26/23 06:25
APTT 35.4 Sec (23.4-35.0) H 08/26/23 06:25
eGFR > 60.00 08/26/23 06:25
Orders
Orders
Orders From Last 24 Hours
08/26/23 12:13
Blood Bank Products [* Blood Bank Products] Urgent
--- NOTE | 2023-08-26 19:32 | PTCARENOTE ---
Received patient this am AAOx3. Pt forgetful at times. [place] with bilateral hearing aides. Pt's HGB 6.0/17.5 this am after 2 units of PRBC's overnight. Platelets 18 this am after platelet transfusion over night. Pt transfused with 1 units of
PRBC's an Platelets today. HBG- 7.1 after PRBC's and Platelets 11. Pt tolerated full liquids. Pt had one bloody bowel movement this afternoon. Dr. Mejia made aware of Bloody bowel movement an Lab results. Pt offered no complaints. Made patient
comfortable. Cont to assess patient status.
[2023-08-26] MEDS: CRESTOR 10 MG PO (21:43)
[2023-08-27] VITALS (11 sets, daily range): BP systolic 101–135; BP diastolic 48–73; PULSE 94–100
[2023-08-27] MEDS: SYNTHROID 25 MCG PO (05:16)
[2023-08-27] MEDS: SPIRIVA RESPIMAT 2.5 MCG 2 PUFF INH (07:17)
[2023-08-27] MEDS: STRIVERDI RESPIMAT 2 PUFF INH (07:17)
--- NOTE | 2023-08-27 07:26 | W.PN.ONC2 ---
Today's Communication / Plan
-
Await follow-up CBC results. If improved, patient is stable for discharge home with oncologic follow-up.
Impression
Impression
Gemcitabine-associated thrombocytopenia
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
Non-small cell lung cancer, metastatic, heavily pretreated
Epistaxis
Colonic mass -biopsy confirmed second to metastatic lung cancer
Dark stools
Plan
Plan
Patient is without evidence of microangiopathic process. Coags are normal.
Her cytopenias are due to chemotherapy in setting of multiple previous regimens.
Agree with supportive care for now. Blood transfusions for HGB <8 and platelets <20.
Clearly this salvage regimen may need to be adjusted because of development of severe cytopenias. Patient will follow-up with Dr. Rodriguez and Dr. Bhagat at [place]
Subjective/Objective
Chief Complaint
ACS Heme Onc
Subjective
Felling better. Epistaxis resolved s/p cauterization w silver nitrate 08/26 by ENT. Receiving transfusions for chemotherapy associated anemia and thrombocytopenia. Follow-up CBC from this a.m. is pending.
Vital Signs:
Vital Signs
Temp Pulse Resp BP Pulse Ox
98.4 F 89 16 101/49 100
08/27/23 05:23 08/27/23 07:20 08/27/23 07:20 08/27/23 05:23 08/27/23 07:20
Lab Results:
Laboratory Data
WBC Cancelled 08/26/23 17:00
Hgb Cancelled 08/26/23 17:00
Plt Count Cancelled 08/26/23 17:00
PT 14.6 Sec (11.4-14.6) 08/26/23 06:25
INR 1.16 08/26/23 06:25
APTT 35.4 Sec (23.4-35.0) H 08/26/23 06:25
eGFR > 60.00 08/26/23 06:25
Physical Exam
HEENT: No Jaundice
Cardiology: S1 and S2
Pulmonary: Clear
GI: Soft
[2023-08-27 08:22] LABS: Hematocrit 21.6 % (37.0-47.0); Hemoglobin 7.7 g/dL (12.0-16.0); Mean Corp Hgb Conc. 35.6 g/dL (33.0-37.0); Mean Corpuscular Hgb 29.6 pg (27.0-31.0); Mean Corpuscular Volume 83.1 fL (81.0-99.0); Mean Platelet Volume 9.5 fL (7.4-10.4); Platelet Count 31 10^3/uL (130-400); Red Cell Dist. Width 16.1 % (11.5-14.5)
[2023-08-27 08:23] LABS: White Blood Cell Count 2.2 10^3/uL (4.8-10.8)
[2023-08-27] MEDS: NSS (PRESERVATIVE FREE) 10 ML IV ×2 (08:58→20:11)
[2023-08-27] MEDS: VITAMIN D3 (cholecalciferol) 50 MCG PO (08:59)
[2023-08-27] MEDS: PROTONIX IV 40 MG IV ×2 (08:59→20:11)
[2023-08-27] MEDS: VISBIOME 1 CAP PO (08:59)
[2023-08-27] MEDS: OCEAN, SALINE MIST 2 SPRAYS NASAL ×2 (08:59→20:11)
[2023-08-27 09:50] LABS: Blood Urea Nitrogen 27 mg/dl (7-17); Calcium 8.3 mg/dl (8.4-10.2); Carbon Dioxide 20 mmol/L (22-30); Chloride 108 mmol/L (98-107); Estimated Creatinine Clearance 55 ml/min; Glucose 89 mg/dl (70-99); Potassium 3.5 mmol/L (3.5-5.1); Sodium 135 mmol/L (135-145); eGFR > 60.00
--- NOTE | 2023-08-27 11:17 | W.PN.HOSP.TC ---
Addendum entered and electronically signed by Cliff Mejia MD 08/27/23 14:17:
Patient states multiple maroon-colored stools and would like to be monitored overnight. Completed blood transfusion.
Original Note:
Today's Communication/Plan
-
PRBC transfusion today
Plan for tentative home later today
hold eliquis
Assessment / Plan
Assessment / Plan
#Lower GI bleed likely secondary to colonic mass exacerbated by Eliquis and severe thrombocytopenia
-heme positive black stool on admisison
-hgb 7.7 and will transfuse additional unit
-Trend hemoglobin
-transfuse if hgb less than 8 and platelets less than 20 per ONC
-PPI BID
-full liquids and ADAT
-Per gastroenterology Dr. Felipe no acute GI intervention is required as patient with severe thrombocytopenia and patient with known colonic mass.� Recommending oncology evaluation.�
-If any profuse bleeding and repeat episode consider CT angiogram abdomen pelvis.
-Oncology on board
#Epistaxis likely in setting of thrombocytopenia and worsened by Eliquis
-saline spray BID
-Holding eliquis
-ENT eval
#Pancytopenia likely worsen due to severe chemotherapy
#Symptomatic anemia worsened due to chemotherapy/Eliquis/suspected lower GI bleed and epistaxis
-hgb 7.7 and will transfuse additional unit
-Trend hemoglobin
-transfuse if hgb less than 8 and platelets less than 20 per ONC
-Per oncology no evidence of microangiopathic hemolysis.
-Trend CBC and transfuse
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
-not a surgical candidate at moment per [facility] per pt
-Onc on board.
#hxt of right upper extremity DVT
-Hold Eliquis-d/w with Dr. Abreu-recommending to hold Eliquis till platelets >50k. Will require OP monitoring with primary oncologist. Pt agreed with plan
# Hypothyroidism
-Levothyroxine
#-Hyperlipidemia
-Statin
# DVT prophylaxis
-SCD
# CODE STATUS
-Full code
Long-term prognosis guarded
d/w with spouse
d/w with oncology
Dipso-home post blood transfusion today.
More than 30 minutes spent in discharge including
Final examination of the patient
Summarizing hospital stay
Instructions for continuing care to all relevant caregivers
Preparation of discharge records, prescriptions, and referral forms
Total time spent (in minutes): 45
Anticipated Discharge: Today
Subjective/Interval History
-
Date of Service: August 27, 2023
feeling better
tolerating diet
no further bloody bm
Objective Data
-
Labs:
Laboratory Results
08/27/23
07:56
WBC 2.2 L*
Hgb 7.7 L
Hct 21.6 L
Plt Count 31 L D
Sodium 135
Potassium 3.5
Chloride 108 H
Carbon Dioxide 20 L
BUN 27 H
Creatinine 0.7
Glucose 89
Calcium 8.3 L
Vital Signs:
Vital Signs
Temp Pulse Resp BP Pulse Ox
97.9 F 84 18 106/61 99
08/27/23 07:55 08/27/23 07:55 08/27/23 07:55 08/27/23 07:55 08/27/23 09:56
I&O
08/26/23 08/27/23 08/28/23
06:59 06:59 06:59
Intake Total 829 / 829 3460 / 3460
Balance 829 / 829 3460 / 3460
Physical Exam
-
General: Well Developed and No Apparent Distress
HEENT: Normocephalic, Atraumatic, Moist Mucous Membranes and Other (R chest port placed )
Respiratory: Clear to Auscultation
Cardiac: Regular Rhythm and S1/S2; Negative Murmur, Rub or Gallop
GI: Soft, Nontender, Nondistended and Normal Bowel Sounds; Negative Organomegaly
Rectal: Deferred by Provider
Musculoskeletal: No Clubbing, No Cyanosis and No Edema
Skin: Negative Rash
Neuro: Awake, AO x 3, No Motor Deficits and Nonfocal/Grossly Intact
Psych: Calm
[2023-08-27] MEDS: FLUSH (NSS) 1 FLUSH IV (13:54)
--- NOTE | 2023-08-27 14:03 | PTCARENOTE ---
pt received a unit of blood. pt tolerated the transfusion. will continue plan of care.
--- NOTE | 2023-08-27 14:26 | CON.GI ---
Addendum entered and electronically signed by Randy Saenz MD 08/27/23 16:24:
I saw and examined the patient.
The PA's note was reviewed and I agree with the note.
Comment:
The patient is a 78 year old female with h/o non-small cell metastatic lung CA (dx in 2021), DVT on Eliquis, hypothyroidism, arthritis p/w melena and rectal bleeding.
Impression / Rec:
1. Melena / rectal bleeding - she unfortunately has multiple metastatic lesions including in adrenal, transverse colon, thyroid, and lytic bony lesions (last PET CT on 06/2023).� She had colonoscopy on 07/2023 which showed partially obstructing mass
in transverse colon and path showed metastatic lung CA. �She has been followed by oncology here and [facility] and had multiple different chemo regiment, which resulted in pancytopenia; drop in Hgb to 4.5 with platelets of 7k. She had significant
epistaxis few days ago which required cauterization by ENT on admission. �Her melena occurred after her epistaxis.� Her Hgb is up to 7.6 after pRBC transfusions. Platelet 31k today. She likely had melena from ingested blood from epistaxis +/-
bleeding from metastatic mass in transverse colon, which won't be amenable for endo therapy compounded by severe thrombocytopenia and Eliquis use. No role for endo eval at this point, will s/o, pls call with questions.
Original Note:
Consultation
-
Date/Time Consultation Requested: 08/27/231424
Date/Time Consultation Performed: 08/27/23 1430
Requesting Provider: Cliff Mejia MD
Performing Provider: HALINA Loredo, Randy Saenz MD
Reason for Consultation: melanotic stool
Medical History
Chief Complaint / HPI
Chief Complaint: GI bleed
History of Present Illness:
Pt is a 78yo with hx DVT on Eliquis, hypothyroidism, arthritis, non small cell metastatic lung CA since 2021 diagnosed after covid infection. On prior pet scan in 2022 with noted adrenal mets, lesion in transverse colon with persistent finding on
follow up pet along with thyroid lesion and osseous mets. She went for colonoscopy 07/[address] Gray with noted partially obstructing tumor in transverse colon and 2 5-10 mm polyp in transverse colon not removed along with internal
hemorrhoids. Path with noted metastatic lung CA. She has been follow by oncology with Dr. Rodriguez and [facility] De Paz with multiple different chemo regiment and now and noted with with drop in hbg to 4.5 with platelets of 7,000 with recent epistaxis.
s/p cauterization by ENT on admission. She report passing black stools after epistaxis and then yesterday red blood. No hx need transfusion of platelet or blood in past but now s/p 5 units PRBC's and 3 platelets.
She was on Eliquis with last dose Friday. she admits to mild abdominal pain and constipation that she usually has with chemo along with bleeding as noted above. + wt loss 20 lbs since chemo last year or so. She denies odynophagia dysphagia,
GERD, nausea, vomiting, or diarrhea. No NSAID use.
Past Medical History
Past Medical History: Asthma, Cancer (Lung CA with mets to colon ), Hypercholesterolemia, Hypothyroidism and Other (DVT on eliquis, covid, arthritis )
Social History
Tobacco: Former Smoker
Alcohol: Occasional
Drug: None
Personal:
Living: With Family
Employment: Employed (partially employed with own buisiness )
Family History
Family History: Other (mother with stomach CA , uncle with some type of cancer)
Allergies / Home Medications
Allergy/AdvReac Type Severity Reaction Status Date / Time
cat dander Allergy Unknown Unknown Verified 08/25/23 14:41
seasonal Allergy Unknown Uncoded 08/25/23 14:41
Medication Instructions Recorded
rosuvastatin 10 mg tablet 10 mg PO HS High Cholesterol 02/12/22
umeclidinium 62.5 mcg-vilanterol 1 inh inhalation R DAILY 07/01/22
25 mcg/actuation powdr for Lung/Breathing Issues
inhalation (Anoro Ellipta)
cholecalciferol (vitamin D3) 50 50 mcg PO DAILY Supplement 11/11/22
mcg (2,000 unit) capsule (Vitamin
D3)
lactobacillus comb no.10 20 20,000 mmu cells PO DAILY 11/11/22
billion cell capsule (Probiotic) Supplement
loratadine 10 mg tablet (Claritin) 10 mg PO . DIRECTED Allergies 11/11/22
ondansetron 8 mg disintegrating 8 mg PO Q8H PRN nausea 11/11/22
tablet
prochlorperazine maleate 10 mg 10 mg PO Q6H PRN nausea 11/11/22
tablet (Compazine)
Gemzar + Carboplatin 1 dose IV Q3W Cancer 08/25/23
apixaban 2.5 mg tablet (Eliquis) 2.5 mg PO BID Blood Clot 08/25/23
Prevention/Tx
gemcitabine 1 gram intravenous 0 mg IV Q4W Cancer 08/25/23
solution
levothyroxine 25 mcg tablet 25 mcg PO DAILY Thyroid 08/25/23
melatonin 5 mg tablet 5 mg PO HS PRN insomnia 08/25/23
bacitracin zinc 500 unit-polymyxin 1 applic topical BID 14 days #144 08/27/23
B 10,000 unit/gram top oint packet ea
(Polysporin)
Review of Systems
-
History Source: Patient
Constitutional: Reports Weight Loss
EENT: Reports Other (epistaxis)
Respiratory: Reports No Symptoms
Cardiac: Reports No Symptoms
Abdomen/GI: Reports Abdominal Pain, Constipated, Bloody Stools and Black Stools
: Reports No Symptoms
Musculoskeletal: Reports No Symptoms
Skin: Reports No Symptoms
Neurological: Reports Weakness
Endocrine: Reports No Symptoms
Hematologic/Lymphatic: Reports Bleeding
Vital Signs
Temp Pulse Resp BP Pulse Ox
98.2 F 92 16 113/72 100
08/27/23 13:49 08/27/23 13:49 08/27/23 13:49 08/27/23 13:49 08/27/23 13:49
Physical Exam
Exam
General: Other (pale appearing)
HEENT: Normocephalic and Anicteric
Respiratory: Clear
Cardiac: Regular Rhythm
GI: Soft, Non Tender and Non Distended
Rectal: Deferred by Provider (with severe thrombocytopenia noted maroon stool 08/27 )
Musculoskeletal: No Clubbing and No Cyanosis
Skin: Warm and Dry
Neuro: Awake, Alert and AO x 3
Psych: Calm
Results
WBC 2.2 10^3/uL (4.8-10.8) L* 08/27/23 07:56
Hgb 7.7 g/dL (12.0-16.0) L 08/27/23 07:56
Hct 21.6 % (37.0-47.0) L 08/27/23 07:56
MCV 83.1 fL (81.0-99.0) 08/27/23 07:56
Plt Count 31 10^3/uL (130-400) L D 08/27/23 07:56
Absolute Neuts (auto) Cancelled 08/26/23 17:00
PT 14.6 Sec (11.4-14.6) 08/26/23 06:25
INR 1.16 08/26/23 06:25
APTT 35.4 Sec (23.4-35.0) H 08/26/23 06:25
Sodium 135 mmol/L (135-145) 08/27/23 07:56
Potassium 3.5 mmol/L (3.5-5.1) 08/27/23 07:56
Chloride 108 mmol/L (98-107) H 08/27/23 07:56
Carbon Dioxide 20 mmol/L (22-30) L 08/27/23 07:56
BUN 27 mg/dl (7-17) H 08/27/23 07:56
Creatinine 0.7 mg/dL (0.6-1.0) 08/27/23 07:56
Calcium 8.3 mg/dl (8.4-10.2) L 08/27/23 07:56
Total Bilirubin 0.6 mg/dl (0.2-1.3) 08/25/23 14:44
AST 21 U/L (14-36) 08/25/23 14:44
ALT 22 U/L (0-35) 08/25/23 14:44
Alkaline Phosphatase 108 U/L (38-126) 08/25/23 14:44
Hepatitis C Antibody Negative (Negative) 08/26/23 06:25
Diagnostic Image Results:
06/18/23 PET scan
�Anatomic and metabolic improvement in a small nodule in the medial right upper lobe.
Additional bilateral pulmonary opacities, which are anatomically stable. The largest, which is in the left upper lobe, is not hypermetabolic. Remaining lesions are anatomically stable, and below the resolution of PET imaging.
Progression of increased FDG uptake in the right thyroid lobe lesion. This could represent malignancy. Ultrasound-guided biopsy should be considered for further evaluation, if not already performed.
Markedly hypermetabolic region in the proximal to mid transverse colon. This is associated with circumferential wall thickening of the colon. This is worrisome for malignancy. Colonoscopy recommended for further evaluation, if not already performed.
Anatomic and metabolic improvement in bilateral adrenal masses.
Redemonstration of osseous metastases in the right iliac wing and T12 vertebral body. These are similar in size to the previous study. Assessment for metabolic change of these lesions is limited because of greater reactive marrow uptake related to
chemotherapy on the current study compared to previous study
Progression of increased FDG uptake in the right parotid gland inferiorly. No CT correlate. This could represent a parotid malignancy. If clinically warranted, MRI neck can provide further evaluation.
Increased FDG uptake in submandibular glands. The pattern is bilaterally symmetric. This is unlikely to represent malignancy.
Prior GI Procedures:
EGD: none
Colonoscopy: 07/[address] Gray with noted partially obstructing tumor in transverse colon and 2 5-10 mm polyp in transverse colon not removed along with internal hemorrhoids. Path with noted metastatic lung CA.
Assessment / Plan
-
Pt is a 78yo with hx DVT on Eliquis, hypothyroidism, arthritis, non small cell metastatic lung CA since 2021 diagnosed after covid infection. On prior pet scan in 2022 with noted adrenal mets, lesion in transverse colon with persistent finding on
follow up pet along with thyroid lesion and osseous mets. She went for colonoscopy 07/[address] Gray with noted partially obstructing tumor in transverse colon and 2 5-10 mm polyp in transverse colon not removed along with internal
hemorrhoids. Path with noted metastatic lung CA. She has been follow by oncology with Dr. Rodriguez and [place] with multiple different chemo regiment and now and noted with with drop in hbg to 4.5 with platelets of 7,000 with recent epistaxis.
s/p cauterization by ENT on admission. She report passing black stools after epistaxis and then red blood. No hx need transfusion of platelet or blood in past but now s/p 5 units PRBC's and 3 platelets.
-melena then red stools
-epistaxis
-metastatic lung CA with known partially obstruction colon mass in transverse colon(dx 07/2023) with chemo last 15 months
-pancytopenia with severe thrombocytopenia with recent chemo requiring multiple transfusions
-DVT on Eliquis prior to admission
-arthritis
PLAN:
Etiology of bleeding with black stools likely epistaxis(s/p ENT cauterization) and red blood in stools with known transverse colon metastatic lesion vs other
reviewed with Dr. Gray (completed colonoscopy in July) and Dr. Saenz with recent colonoscopy finding tumor likely source of red blood passed with low platelets
also reviewed recent colonoscopy with patient and family
s/p multiple transfusion to get platelets/hbg higher
cont to hold Eliquis with bleeding
no role for colonoscopy at this time as therapeutic measures such as hemospray are very short lived and not [facility] solution
EGD/Colonoscopy also contraindicated with continued low platelets of 31,000
pt to review for further chemo with oncology --pt considering new regiment at [facility] but would like to review with Dr. Rodirguez first
trend labs
cont PPI
supportive give with situation
-
-
Thank you for consultation and allowing me to participate in the patient's care. Please call the arch cushion skiving machine operator GI physician during the after hours with any questions or concerns.
[2023-08-27] MEDS: CRESTOR 10 MG PO (20:11)
[2023-08-28] MEDS: SYNTHROID PO (04:43)
[2023-08-28 07:00] VITALS: BP 123/64
[2023-08-28 07:01] LABS: Hematocrit 24.1 % (37.0-47.0); Hemoglobin 8.6 g/dL (12.0-16.0); Mean Corp Hgb Conc. 35.7 g/dL (33.0-37.0); Mean Corpuscular Hgb 30.7 pg (27.0-31.0); Mean Corpuscular Volume 86.1 fL (81.0-99.0); White Blood Cell Count 3.4 10^3/uL (4.8-10.8)
[2023-08-28 07:31] LABS: Mean Platelet Volume 9.9 fL (7.4-10.4)
[2023-08-28 07:32] LABS: Platelet Count 19 10^3/uL (130-400)
[2023-08-28] MEDS: STRIVERDI RESPIMAT INH (08:02)
[2023-08-28] MEDS: SPIRIVA RESPIMAT 2.5 MCG INH (08:02)
[2023-08-28] MEDS: VISBIOME 1 CAP PO (08:32)
[2023-08-28] MEDS: NSS (PRESERVATIVE FREE) 10 ML IV (08:32)
[2023-08-28] MEDS: PROTONIX IV 40 MG IV (08:32)
[2023-08-28] MEDS: VITAMIN D3 (cholecalciferol) 50 MCG PO (08:33)
[2023-08-28] MEDS: OCEAN, SALINE MIST 2 SPRAYS NASAL (08:35)
--- NOTE | 2023-08-28 08:57 | W.PN.ONC2 ---
Today's Communication / Plan
-
Discharge home. Follow-up with Dr. Rodriguez and Dr. Bhagat.
Impression
Impression
Gemcitabine-associated thrombocytopenia
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
Non-small cell lung cancer, metastatic, heavily pretreated
Epistaxis
Colonic mass -biopsy confirmed second to metastatic lung cancer
GI bleeding from colon mass exacerbated by thrombocytopenia
Plan
Plan
Patients cytopenias are due to chemotherapy in setting of multiple previous regimens.
Agree with supportive care for now. Blood transfusions for HGB <8 and platelets <20.
Clearly this salvage regimen may need to be adjusted because of development of severe cytopenias. Patient will follow-up with Dr. Rodriguez and Dr. Bhagat at [place].
I do not think that moving forward with additional gemcitabine is beneficial in light of the potential for reexacerbation of bleeding (chemotherapy risks > benefits).
From my perspective, patient can be discharged home as otherwise stable
Subjective/Objective
Chief Complaint
ACS Oncology F/U
Subjective
Doing better. No further epistaxis. Maroon stools have also improved. Patient is feeling improved.
Regarding her outpatient oncology plan, she was seen by Dr. Fredo Bhagat @ [facility] and he suggested continuing carboplatin plus gemcitabine although this was prior to her hospitalization with severe thrombocytopenia and associated bleeding complications.
Vital Signs:
Vital Signs
Temp Pulse Resp BP Pulse Ox
98 F 91 18 123/64 100
08/28/23 07:00 08/28/23 07:00 08/28/23 07:00 08/28/23 07:00 08/28/23 07:00
Lab Results:
Laboratory Data
WBC 3.4 10^3/uL (4.8-10.8) L 08/28/23 06:24
Hgb 8.6 g/dL (12.0-16.0) L 08/28/23 06:24
Plt Count 19 10^3/uL (130-400) L* D 08/28/23 06:24
PT 14.6 Sec (11.4-14.6) 08/26/23 06:25
INR 1.16 08/26/23 06:25
APTT 35.4 Sec (23.4-35.0) H 08/26/23 06:25
eGFR > 60.00 08/27/23 07:56
Physical Exam
Well-appearing in no acute distress. Alopecia.
Cardiology: S1 and S2
Pulmonary: Clear
GI: Soft
Extremities: No C/C/E
[2023-08-28 10:54] LABS: Haptoglobin 233 mg/dL (30-200)
--- NOTE | 2023-08-28 11:41 | W.PN.HOSP.TC ---
Today's Communication/Plan
-
awaiting platelet transfusion
onc recs
Assessment / Plan
Assessment / Plan
# Melanotic stools likely secondary to recent epistaxis aspiration versus colonic mass exacerbated by Eliquis and severe thrombocytopenia
-heme positive black stool on admission
-Trend hemoglobin
-transfuse if hgb less than 8 and platelets less than 20 per ONC
-Tolerating diet.
-Per gastroenterology no acute endoscopic evaluation required.
-Oncology on board
#Epistaxis likely in setting of thrombocytopenia and worsened by Eliquis
-saline spray BID
-Holding eliquis
-ENT eval
#Pancytopenia likely worsen due to severe chemotherapy
#Symptomatic anemia worsened due to chemotherapy/Eliquis/suspected lower GI bleed and epistaxis
-hgb improved to 8.6. Platelets at 19 and awaiting transfusion of 1U of platelet.
-Trend hemoglobin
-transfuse if hgb less than 8 and platelets less than 20 per ONC
-Per oncology no evidence of microangiopathic hemolysis.
-Trend CBC and transfuse
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
-not a surgical candidate at moment per [facility] per pt
-Onc on board.
#hxt of right upper extremity DVT
-Hold Eliquis-d/w with Dr. Abreu-recommending to hold Eliquis till platelets >50k. Will require OP monitoring with primary oncologist. Pt agreed with plan
# Hypothyroidism
-Levothyroxine
#-Hyperlipidemia
-Statin
# DVT prophylaxis
-SCD
# CODE STATUS
-Full code
Long-term prognosis guarded
Dipso-home pending platelet transfusion
Anticipated Discharge: Within 24 hours
Subjective/Interval History
-
Date of Service: August 28, 2023
Feeling better
Objective Data
-
Labs:
Laboratory Results
08/28/23
06:24
WBC 3.4 L
Hgb 8.6 L
Hct 24.1 L
Plt Count 19 L* D
Vital Signs:
Vital Signs
Temp Pulse Resp BP Pulse Ox
98 F 91 18 123/64 100
08/28/23 07:00 08/28/23 07:00 08/28/23 07:00 08/28/23 07:00 08/28/23 11:20
I&O
08/27/23 08/28/23 08/29/23
06:59 06:59 06:59
Intake Total 3460 / 3460 1400 / 1400
Balance 3460 / 3460 1400 / 1400
Physical Exam
-
General: Well Developed and No Apparent Distress
HEENT: Normocephalic, Atraumatic, Moist Mucous Membranes and Other (R chest port placed )
Respiratory: Clear to Auscultation
Cardiac: Regular Rhythm and S1/S2; Negative Murmur, Rub or Gallop
GI: Soft, Nontender, Nondistended and Normal Bowel Sounds; Negative Organomegaly
Rectal: Deferred by Provider
Musculoskeletal: No Clubbing, No Cyanosis and No Edema
Skin: Negative Rash
Neuro: Awake, AO x 3, No Motor Deficits and Nonfocal/Grossly Intact
Psych: Calm
[2023-08-28 12:50] VITALS: BP 138/71
--- NOTE | 2023-08-28 12:50 | PTCARENOTE ---
Platelets ready, vitals obtained, consent verified.
[2023-08-28 13:11] VITALS: BP 138/71
[2023-08-28 13:38] VITALS: BP 137/72
--- NOTE | 2023-08-28 13:51 | W.DCSUMMARY ---
Discharge Summary
Discharge Data
Date of Admission: 08/25/23
Date of Discharge: 08/28/23
-
Pending Results: No
Hospital Course
78-year-old female past medical history of stage IV metastatic lung cancer including transverse colon, hypothyroidism, history of DVT, hyperlipidemia was presented with complaint of weakness. Patient underwent blood work which showed severe anemia
with hemoglobin of 4.5 and platelets of 7. Patient received multiple units of PRBC and platelet transfusion. Patient also with epistaxis and ENT was consulted status post cauterization. Patient was also having melanotic stools. It was seems it
was secondary to epistaxis leading to aspiration and from mild bleeding from transverse colon in the setting of recent chemotherapy and Eliquis. Patient Eliquis was placed on hold and was decided to discuss if patient even to need to be restarted
with her primary oncologist Dr. Rodriguez. Also need to wait for platelets to be greater than 50,000 for consideration of Eliquis if even required. Patient received total of 5 units of PRBC and 4 units of platelets. Patient was also eval by
oncology who agreed with holding Eliquis. Patient will be going home. Patient care was also discussed with patient spouse.
Discharge Plan
-
Patient Disposition: Home (Routine Discharge)
Discharge Diagnosis/Procedures: Lower GI bleed likely secondary to colonic mass exacerbated by Eliquis and severe thrombocytopenia
Epistaxis likely in setting of thrombocytopenia and worsened by Eliquis
Pancytopenia likely worsen due to severe chemotherapy
Symptomatic anemia worsened due to chemotherapy/Eliquis/suspected lower GI bleed and epistaxis
Condition: Fair
Diet: As tolerated
Activity: With assistance and As tolerated
Driving Restrictions: No driving for 24 hours
Blood Work: cbc in 5-7 days with primary doctor.
Referrals:
Margaret Diaz, DO [Family Provider] - in less than 1 week
Marlene Rodriguez MD [Active] - in one to two weeks
Quique Zaidi MD [Active] - in one to two weeks (FOR EPISTAXIS)
Prescriptions:
New
Polysporin 500-10,000 unit/gram Ointment In Packet
1 applic topical BID 14 Days Qty: 144 0RF
Continued
rosuvastatin 10 mg Tablet
10 mg PO HS
Anoro Ellipta 62.5-25 mcg/actuation Blister With Device
1 inh INHALATION R DAILY
prochlorperazine maleate [Compazine] 10 mg Tablet
10 mg PO Q6H PRN (Reason: nausea)
ondansetron 8 mg Tablet,Disintegrating
8 mg PO Q8H PRN (Reason: nausea)
loratadine [Claritin] 10 mg Tablet
10 mg PO . DIRECTED
Rx Instructions:
for 5 days after infusion
cholecalciferol (vitamin D3) [Vitamin D3] 50 mcg (2,000 unit) Capsule
50 mcg PO DAILY
Probiotic 20 billion cell Capsule
20,000 mmu cells PO DAILY
levothyroxine 25 mcg tablet
25 mcg PO DAILY
gemcitabine 1 gram Recon Soln
0 mg IV Q4W
melatonin 5 mg Tablet
5 mg PO HS PRN (Reason: insomnia)
Gemzar + Carboplatin
1 dose IV Q3W
Held
Eliquis 2.5 mg tablet
2.5 mg PO BID
Hold Instructions: Resume on 09/11/23. Till platelets >50k and after discussion with your oncologist
Discharge Orders:
Discharge Patient (As Directed); Ordered 08/28/23
Ordered By: Cliff Mejia
[2023-08-28 14:27] VITALS: BP 138/72
--- NOTE | 2023-08-28 15:33 | CM ---
MD entered order for discharge.
Spoke with patient and in room .
Offered VN again she requested [facility] referral placed in care port.
IMM signed and reviewed Copy given .Copy signed on chart.
will drive her home.
PLAN HOme with [facility] if accepted
[2023-08-28 15:44] VITALS: BP 133/65
[2023-08-28 17:28] LABS: Platelet Antibodies Indirect None Detected (None Detected)
[2023-08-31 09:20] LABS: Platelet Antibody, Direct IgG Negative (Negative); Platelet Antibody, Direct IgM Positive (Negative)
== END 2023-08-28 16:39 | disposition home health service (06) | DRG 377 ==
LOC: 4 EAST ACU 18:37
PROVIDERS: Emergency Medicine; Registered Nurse; ADMITTING PHYSICIAN Hospitalist; CONSULT PHYSICIAN Internal Medicine Gastroenterology; CONSULT PHYSICIAN Internal Medicine Hematology & Oncology; EMERGENCY PHYSICIAN Emergency Medicine; FAMILY PHYSICIAN Family Medicine; OTHER PHYSICIAN Otolaryngology
PROC: 30233N1 Transfusion of Nonautologous Red Blood Cells into Peripheral Vein, Percutaneous Approach (ICD-10-PCS; 2023-08-25)
PROC: 30233R1 Transfusion of Nonautologous Platelets into Peripheral Vein, Percutaneous Approach (ICD-10-PCS; 2023-08-26)
DX: K92.2 Gastrointestinal hemorrhage, unspecified (principal); D61.810 Antineoplastic chemotherapy induced pancytopenia; C78.5 Secondary malignant neoplasm of large intestine and rectum; C34.90 Malignant neoplasm of unspecified part of unspecified bronchus or lung; D62 Acute posthemorrhagic anemia; D68.32 Hemorrhagic disorder due to extrinsic circulating anticoagulants; Z79.01 Long term (current) use of anticoagulants; T45.1X5A Adverse effect of antineoplastic and immunosuppressive drugs, initial encounter; E03.9 Hypothyroidism, unspecified; G47.00 Insomnia, unspecified; Z87.891 Personal history of nicotine dependence; E78.00 Pure hypercholesterolemia, unspecified; R04.0 Epistaxis
CPT/HCPCS: 80048; 80053; 82248; 82728; 83010; 83540; 83550; 83615; 85025; 85027; 85045; 85379; 85384; 85610; 85730; 86022; 86023; 86803; 86850; 86900; 86901; 86920; 93005; 94640; 96361; 96372; 96374; 96375; 99285; P9016; P9073

== ENCOUNTER 2023-09-01 19:17 | Emergency (ER) | payer MEDICARE, BC, SELFPAY ==
[2023-09-01 19:18] VITALS: BMI 23.7
[2023-09-01 19:19] VITALS: BP 150/80
[2023-09-01 20:15] LABS: Hematocrit 25.6 % (37.0-47.0); Hemoglobin 8.8 g/dL (12.0-16.0); Mean Corp Hgb Conc. 34.4 g/dL (33.0-37.0); Mean Corpuscular Volume 87.4 fL (81.0-99.0); Mean Platelet Volume 8.9 fL (7.4-10.4); Platelet Count 264 10^3/uL (130-400); Red Blood Cell Count 2.93 10^6/uL (4.20-5.40); Red Cell Dist. Width 17.7 % (11.5-14.5)
--- NOTE | 2023-09-01 20:26 | ED.GENMED ---
History of Present Illness
General
Chief Complaint: Abnormal Lab Value
Time Seen by Provider: 09/01/23 20:06
Travel History
Have you had any contact with someone who has COVID-19?: No
Do you have any symptoms of coronavirus? Fever > 100 degrees, chills, cough, shortness of breath, sore throat, loss of taste or smell, muscle aches, or headache?: No
History of Present Illness
History of Present Illness:
70-year-old female with history of metastatic lung cancer currently undergoing chemotherapy presents the emergency department due to abnormal outpatient labs. Routine labs this morning showed a white blood cell count of 50,000. She was admitted to
the hospital for August 25 through due to acute blood loss anemia from a GI bleed, did require blood transfusion during that time but her white count was noted to be leukopenic during the hospital stay. Of note she did receive Neulasta
injection 11 days ago. Denies any complaints, denies fever, coughing, dysuria, abdominal pain, nausea, or vomiting.
Review of Systems
Review of Systems
Allergies reviewed?: Yes
All Other Systems: ROS reviewed and negative except as documented in HPI and ROS
Phy Exam
Physical Exam
Physical Exam:
GEN: Well appearing, NAD, WDWN
HEENT: Oral mucosa moist, no scleral icterus
Cardiac: Regular rate and rhythm, no murmurs
Lung: No respiratory distress, no tachypnea, lungs clear to auscultation bilaterally
Abdomen: Soft, nontender
MSK: No gross deformity or injuries
Skin: Good color, no pallor or jaundice, no rashes
Neuro: AO x3, moves all extremities freely
Psych: Calm, cooperative
Course
Orders/Labs/Results
Orders:
Orders
09/01/23 20:00
CMP [Comprehensive Metabolic Panel] Urgent
Complete Blood Count/With Diff Urgent
Manual Differential Urgent
09/01/23 20:40
CR Chest - 2 Views Urgent
Comment:
Reason For Exam: leukocytosis
09/01/23 20:58
Urinalysis Reflex To Culture Urgent
Date Specimen was Collected: 09/01/23
Time Specimen was Collected: 20:44
09/01/23 21:38
Blood Culture Q30M
AUREA Source: Blood/Venous
Specimen Description:
Blood Culture Q30M
AUREA Source: Blood/Venous
Specimen Description:
09/01/23 22:24
Heparin Pf [Heparin Lock Flush] 500 unit IV NOW ONE
Abnormal Lab Results
09/01/23
20:00
WBC 63.4 H* 10^3/uL
(4.8-10.8)
RBC 2.93 L 10^6/uL
(4.20-5.40)
Hgb 8.8 L g/dL
(12.0-16.0)
Hct 25.6 L %
(37.0-47.0)
RDW 17.7 H %
(11.5-14.5)
Abs Neuts (Manual) 53.8 H 10^3/uL
(1.4-6.5)
Segmented Neutrophils 83 H %
(42-75)
Lymphocytes (Manual) 4 L %
(20-51)
Sodium 132 L mmol/L
(135-145)
Alkaline Phosphatase 184 H U/L
(38-126)
Total Protein 5.1 L g/dl
(6.3-8.2)
Albumin 2.9 L g/dl
(3.5-5.0)
09/01/23 20:00
09/01/23 20:00
Vital Signs
Initial and Last Documented VS:
Initial Vital Signs
Temp Pulse Resp BP Pulse Ox
98.1 F 106 22 150/80 96
09/01/23 19:19 09/01/23 19:19 09/01/23 19:19 09/01/23 19:19 09/01/23 19:19
Last Documented Vital Signs
Temp Pulse Resp BP Pulse Ox
98.1 F 106 22 150/80 97
09/01/23 19:19 09/01/23 19:19 09/01/23 19:19 09/01/23 19:19 09/01/23 21:45
MDM/Problems Addressed
MDM/Problems Addressed:
Patient's leukocytosis increased on recheck in the emergency department. I discussed the case with hematology on-call, apparently this is a possibility for a delayed Neulasta reaction in the setting of recent anemia. Given that the patient is
afebrile with no other focal symptoms we will be discharging her home, she has a scheduled oncology appointment tomorrow. No indication for empiric antibiotics.
*Critical Care Note
Total Time (30-74mins, 75-104mins- exclusive of procedures): Not Applicable
ED Attending Note
-
Portions of this chart may have been created with voice recognition software.� Occasional wrong word or��sound alike� substitutions may have occurred due to the inherent limitations of voice recognition software.
Discharge Plan
Departure
Patient Disposition: Home (Routine Discharge)
Date of Disposition: 09/01/23
Time of Disposition: 22:04
Patient with high blood pressure during this ER visit?: No
Discharge Problem:
Leukocytosis
Prescriptions:
No Action
rosuvastatin 10 mg Tablet
10 mg PO HS
Anoro Ellipta 62.5-25 mcg/actuation Blister With Device
1 inh INHALATION R DAILY
loratadine [Claritin] 10 mg Tablet
10 mg PO HS
cholecalciferol (vitamin D3) [Vitamin D3] 50 mcg (2,000 unit) Capsule
50 mcg PO HS
levothyroxine 25 mcg tablet
25 mcg PO HS
melatonin 5 mg Tablet
5 mg PO HS
Eliquis 2.5 mg tablet
2.5 mg PO BID
Hold Instructions: Resume on 09/11/23. Till platelets >50k and after discussion with your oncologist
Patient Comments:
09/01/2023, currently on HOLD.
Rx Instructions:
09/01/2023, currently on HOLD.
Gemzar + Carboplatin
1 dose IV Q3W
docusate sodium [Stool Softener] 100 mg Capsule
100 mg PO HSPRN PRN (Reason: constipation)
Visbiome 112.5 billion cell Capsule
1 cap PO HS
CoQ-10
1 cap PO HS
gemcitabine
1 dose IV Q4W
Polysporin 500-10,000 unit/gram ointment in packet
1 applic topical BID
Patient Comments:
09/01/2023, x 14 days; stop date per [facility] records: 09/11/2023.
Referrals:
Margaret Diaz DO [Family Provider] -
Activity Restrictions/Additional Instructions:
Please follow up with your oncologist tomorrow for further lab work
Interventions
Interventions:
*Risk Screen - Suicide Last Done: 09/01/23 19:19
*Neglect/Abuse Screening Last Done: 09/01/23 19:19
ED- Fall Risk Assessment Last Done: 09/01/23 19:57
*Nursing Disposition Last Done: 09/01/23 22:35
Discharge Date and Time
Discharge Date/Time: 09/01/23 22:35
[2023-09-01 20:30] LABS: Absolute Neutrophils -Man Diff 53.8 10^3/uL (1.4-6.5); Atypical Lymphocytes 1 %; Band Neutrophils 2 % (0-3); Lymphocytes 4 % (20-51); Metamyelocytes 1 % (-); Monocytes 5 % (2-9); Myelocytes 4 % (-); Segmented Neutrophils 83 % (42-75)
[2023-09-01 20:31] LABS: Normal RBC Morphology No; Nucleated Red Blood Cells 1 (-); Platelets Checked Yes
[2023-09-01 20:32] LABS: Total Cells Counted 100
[2023-09-01 20:33] LABS: White Blood Cell Count 63.4 10^3/uL (4.8-10.8)
[2023-09-01 20:36] LABS: ALT (SGPT) 17 U/L (0-35); AST (SGOT) 31 U/L (14-36); Albumin 2.9 g/dl (3.5-5.0); Alkaline Phosphatase 184 U/L (38-126); Blood Urea Nitrogen 13 mg/dl (7-17); Calcium 8.7 mg/dl (8.4-10.2); Carbon Dioxide 25 mmol/L (22-30); Chloride 99 mmol/L (98-107); Glucose 93 mg/dl (70-99); Potassium 3.7 mmol/L (3.5-5.1); Sodium 132 mmol/L (135-145); Total Bilirubin 0.4 mg/dl (0.2-1.3); Total Protein 5.1 g/dl (6.3-8.2); eGFR 57.66
[2023-09-01 21:04] LABS: Urine Albumin Negative (Neg - Trace); Urine Bilirubin Negative (Negative); Urine Character Clear (Clear); Urine Color Yellow; Urine Glucose Negative (Negative); Urine Ketone Negative (Negative); Urine Leukocyte Negative (Negative); Urine Nitrite Negative (Negative); Urine Occult Blood Negative (Negative); Urine Specific Gravity 1.005 (<1.030); Urine Urobilinogen Negative (Neg - 1+)
--- NOTE | 2023-09-01 22:10 | PHANOTE ---
09/01/2023, med rec [facility], spoke to pt. to obtain their med. history; pt. states to get Gemzar + Carboplatin IV Q3W and Gemcitabine IV Q4W; however, I could not confirm dose or frequency with another source.
--- NOTE | 2023-09-01 22:30 | VATNOTE ---
right subq port deaccessed per protocol; brisk blood return noted prior to. at bedside.
== END 2023-09-01 22:35 | disposition home or self-care (01) ==
LOC: EMR 19:17
PROVIDERS: Emergency Medicine; Physician Assistant; EMERGENCY PHYSICIAN Emergency Medicine; FAMILY PHYSICIAN Family Medicine
DX: D72.829 Elevated white blood cell count, unspecified (principal)
CPT/HCPCS: 99285; 96374; 36415; 71046; 80053; 80076; 81003; 85025; 87040

== ENCOUNTER → 2023-09-08 12:53 | Outpatient (REF) | payer MEDICARE, BC, SELFPAY ==
[2023-09-08 13:36] LABS: % Basophils 0.8 % (0-2); % Eosinophils 0.1 % (0-6); % Immature Granulocytes 7.3 % (0-0.5); % Lymphocytes 4.1 % (20.5-51.1); % Monocytes 6.4 % (1.7-9.3); % Neutrophils 81.3 % (42.2-75.2); Absolute Basophils 0.4 10^3/uL (0-0.2); Absolute Immature Granulocytes 3.7 10^3/uL (0-0.05); Absolute Lymphocytes 2.1 10^3/uL (1.2-3.4); Absolute Monocytes 3.3 10^3/uL (0.1-0.6); Absolute Neutrophils 41.4 10^3/uL (1.4-6.5); Hemoglobin 10.3 g/dL (12.0-16.0); Mean Corp Hgb Conc. 33.2 g/dL (33.0-37.0); Mean Corpuscular Hgb 29.9 pg (27.0-31.0); Mean Corpuscular Volume 90.1 fL (81.0-99.0); Mean Platelet Volume 8.6 fL (7.4-10.4); Nucleated Red Blood Cells % 0.4 %; Platelet Count 442 10^3/uL (130-400); Red Blood Cell Count 3.44 10^6/uL (4.20-5.40); Red Cell Dist. Width 19.3 % (11.5-14.5)
[2023-09-08 14:02] LABS: ALT (SGPT) 17 U/L (0-35); AST (SGOT) 31 U/L (14-36); Albumin 3.7 g/dl (3.5-5.0); Alkaline Phosphatase 215 U/L (38-126); Blood Urea Nitrogen 17 mg/dl (7-17); Calcium 9.4 mg/dl (8.4-10.2); Carbon Dioxide 25 mmol/L (22-30); Chloride 101 mmol/L (98-107); Glucose 92 mg/dl (70-99); Potassium 4.7 mmol/L (3.5-5.1); Sodium 135 mmol/L (135-145); Total Bilirubin 0.5 mg/dl (0.2-1.3); Total Protein 6.3 g/dl (6.3-8.2); eGFR 51.43
[2023-09-08 14:16] LABS: White Blood Cell Count 50.9 10^3/uL (4.8-10.8)
[2023-09-08 14:31] LABS: TSH Reflex To Free T4 3.79 uIU/ml (0.47-4.68)
== END ==
LOC: REG 12:53
PROVIDERS: ATTENDING PHYSICIAN Internal Medicine Hematology & Oncology
DX: C34.11 Malignant neoplasm of upper lobe, right bronchus or lung (principal); I80.8 Phlebitis and thrombophlebitis of other sites; D64.81 Anemia due to antineoplastic chemotherapy; R53.83 Other fatigue; E27.9 Disorder of adrenal gland, unspecified
CPT/HCPCS: 36415; 80053; 84443; 85025

== ENCOUNTER → 2023-09-15 13:48 | Outpatient (REF) | payer MEDICARE, BC, SELFPAY ==
[2023-09-15 14:55] LABS: % Basophils 0.6 % (0-2); % Eosinophils 0.1 % (0-6); % Immature Granulocytes 0.7 % (0-0.5); % Lymphocytes 4.2 % (20.5-51.1); % Monocytes 1.3 % (1.7-9.3); % Neutrophils 93.1 % (42.2-75.2); Absolute Basophils 0.1 10^3/uL (0-0.2); Absolute Immature Granulocytes 0.1 10^3/uL (0-0.05); Absolute Lymphocytes 0.6 10^3/uL (1.2-3.4); Absolute Monocytes 0.2 10^3/uL (0.1-0.6); Absolute Neutrophils 14.3 10^3/uL (1.4-6.5); Hemoglobin 9.7 g/dL (12.0-16.0); Mean Corp Hgb Conc. 33.4 g/dL (33.0-37.0); Mean Corpuscular Hgb 29.7 pg (27.0-31.0); Mean Corpuscular Volume 88.7 fL (81.0-99.0); Mean Platelet Volume 9.1 fL (7.4-10.4); Nucleated Red Blood Cells % 0 %; Platelet Count 269 10^3/uL (130-400); Red Blood Cell Count 3.27 10^6/uL (4.20-5.40); Red Cell Dist. Width 18.8 % (11.5-14.5); White Blood Cell Count 15.4 10^3/uL (4.8-10.8)
[2023-09-15 15:14] LABS: ALT (SGPT) 25 U/L (0-35); AST (SGOT) 31 U/L (14-36); Albumin 3.9 g/dl (3.5-5.0); Alkaline Phosphatase 136 U/L (38-126); Blood Urea Nitrogen 26 mg/dl (7-17); Calcium 9.5 mg/dl (8.4-10.2); Carbon Dioxide 27 mmol/L (22-30); Chloride 100 mmol/L (98-107); Glucose 114 mg/dl (70-99); Potassium 4.4 mmol/L (3.5-5.1); Sodium 137 mmol/L (135-145); Total Bilirubin 0.4 mg/dl (0.2-1.3); Total Protein 6.3 g/dl (6.3-8.2); eGFR > 60.00
[2023-09-15 16:16] LABS: Urine Protein 6 mg/dl (0-12)
== END ==
LOC: REG 13:48
PROVIDERS: ATTENDING PHYSICIAN Internal Medicine Hematology & Oncology; FAMILY PHYSICIAN Family Medicine
DX: C34.11 Malignant neoplasm of upper lobe, right bronchus or lung (principal); I80.8 Phlebitis and thrombophlebitis of other sites; D64.81 Anemia due to antineoplastic chemotherapy; R53.83 Other fatigue; E27.9 Disorder of adrenal gland, unspecified
CPT/HCPCS: 36415; 80053; 82570; 84156; 84443; 85025

== ENCOUNTER → 2023-09-17 14:43 | Outpatient (REF) | payer MEDICARE, BC, SELFPAY ==
[2023-08-11 12:26] LABS: % Basophils 0.6 % (0-2); % Immature Granulocytes 0.7 % (0-0.5); % Lymphocytes 5.4 % (20.5-51.1); % Monocytes 5.7 % (1.7-9.3); % Neutrophils 87.6 % (42.2-75.2); Absolute Basophils 0.2 10^3/uL (0-0.2); Absolute Immature Granulocytes 0.2 10^3/uL (0-0.05); Absolute Lymphocytes 1.4 10^3/uL (1.2-3.4); Absolute Monocytes 1.5 10^3/uL (0.1-0.6); Absolute Neutrophils 23.4 10^3/uL (1.4-6.5); Hematocrit 31.8 % (37.0-47.0); Hemoglobin 10.3 g/dL (12.0-16.0); Mean Corp Hgb Conc. 32.4 g/dL (33.0-37.0); Mean Corpuscular Volume 83.2 fL (81.0-99.0); Mean Platelet Volume 8.9 fL (7.4-10.4); Nucleated Red Blood Cells % 0 %; Platelet Count 318 10^3/uL (130-400); Red Blood Cell Count 3.82 10^6/uL (4.20-5.40); Red Cell Dist. Width 20.4 % (11.5-14.5); White Blood Cell Count 26.7 10^3/uL (4.8-10.8)
[2023-08-11 12:49] LABS: ALT (SGPT) 17 U/L (0-35); AST (SGOT) 24 U/L (14-36); Albumin 3.4 g/dl (3.5-5.0); Alkaline Phosphatase 158 U/L (38-126); Blood Urea Nitrogen 17 mg/dl (7-17); Calcium 9.5 mg/dl (8.4-10.2); Carbon Dioxide 24 mmol/L (22-30); Chloride 99 mmol/L (98-107); Glucose 138 mg/dl (70-99); Sodium 136 mmol/L (135-145); Total Bilirubin 0.4 mg/dl (0.2-1.3); Total Protein 5.8 g/dl (6.3-8.2); eGFR > 60.00
[2023-09-17 15:58] LABS: Iron 54 ug/dl (37-170)
[2023-09-17 16:07] LABS: Percent Saturation 17 % (20-50); Total Iron Binding Capacity 311 ug/dl (265-497)
== END ==
LOC: OIDL 14:43
PROVIDERS: ATTENDING PHYSICIAN Internal Medicine Hematology & Oncology
DX: C34.11 Malignant neoplasm of upper lobe, right bronchus or lung (principal)
CPT/HCPCS: 80053; 82728; 83540; 83550; 85025

== ENCOUNTER → 2023-09-29 15:37 | Outpatient (REF) | payer MEDICARE, BC, SELFPAY ==
[2023-09-29 16:56] LABS: Urine Protein < 5 mg/dl
[2023-09-29 22:33] LABS: % Basophils 0.3 % (0-2); % Eosinophils 1.3 % (0-6); % Immature Granulocytes 0.4 % (0-0.5); % Lymphocytes 5.7 % (20.5-51.1); % Monocytes 9.8 % (1.7-9.3); % Neutrophils 82.5 % (42.2-75.2); Absolute Eosinophils 0.1 10^3/uL (0-0.7); Absolute Lymphocytes 0.5 10^3/uL (1.2-3.4); Absolute Monocytes 0.9 10^3/uL (0.1-0.6); Absolute Neutrophils 7.7 10^3/uL (1.4-6.5); Hematocrit 27.4 % (37.0-47.0); Hemoglobin 8.6 g/dL (12.0-16.0); Mean Corp Hgb Conc. 31.4 g/dL (33.0-37.0); Mean Corpuscular Hgb 27.7 pg (27.0-31.0); Mean Corpuscular Volume 88.1 fL (81.0-99.0); Mean Platelet Volume 9.3 fL (7.4-10.4); Nucleated Red Blood Cells % 0 %; Platelet Count 344 10^3/uL (130-400); Red Blood Cell Count 3.11 10^6/uL (4.20-5.40); Red Cell Dist. Width 20.2 % (11.5-14.5); White Blood Cell Count 9.3 10^3/uL (4.8-10.8)
== END ==
LOC: REG 15:37
PROVIDERS: ATTENDING PHYSICIAN Internal Medicine Hematology & Oncology; FAMILY PHYSICIAN Internal Medicine Cardiovascular Disease
DX: R06.09 Other forms of dyspnea (principal); R60.0 Localized edema; C34.11 Malignant neoplasm of upper lobe, right bronchus or lung; I80.8 Phlebitis and thrombophlebitis of other sites; D64.81 Anemia due to antineoplastic chemotherapy; R53.83 Other fatigue; E27.9 Disorder of adrenal gland, unspecified
CPT/HCPCS: 36415; 82570; 84156; 85025

== ENCOUNTER → 2023-09-30 08:53 | Outpatient (REF) | payer MEDICARE, BC, SELFPAY ==
[2023-09-30 11:55] LABS: NT-proBNP 261 pg/ml
[2023-09-30 12:33] LABS: TSH Reflex To Free T4 5.17 uIU/ml (0.47-4.68)
[2023-09-30 13:01] LABS: Free T4 1.44 ng/dl (0.78-2.19)
[2023-09-30 16:35] LABS: ALT (SGPT) 16 U/L (0-35); AST (SGOT) 24 U/L (14-36); Albumin 3.8 g/dl (3.5-5.0); Alkaline Phosphatase 140 U/L (38-126); Blood Urea Nitrogen 19 mg/dl (7-17); Calcium 9.6 mg/dl (8.4-10.2); Carbon Dioxide 22 mmol/L (22-30); Chloride 103 mmol/L (98-107); Glucose 92 mg/dl (70-99); Potassium 4.6 mmol/L (3.5-5.1); Sodium 135 mmol/L (135-145); Total Bilirubin 0.3 mg/dl (0.2-1.3); Total Protein 6.2 g/dl (6.3-8.2); eGFR > 60.00
== END ==
LOC: REG 08:53
PROVIDERS: ATTENDING PHYSICIAN Internal Medicine Cardiovascular Disease; REFERRING PHYSICIAN Surgery
DX: R06.09 Other forms of dyspnea (principal); R60.0 Localized edema; C34.11 Malignant neoplasm of upper lobe, right bronchus or lung; I80.8 Phlebitis and thrombophlebitis of other sites; D64.81 Anemia due to antineoplastic chemotherapy; R53.83 Other fatigue
CPT/HCPCS: 80053; 83880; 84439; 84443

== ENCOUNTER → 2023-10-07 08:48 | Outpatient (REF) | payer MEDICARE, BC, SELFPAY ==
[2023-10-07 09:42] LABS: % Basophils 0.7 % (0-2); % Eosinophils 2.6 % (0-6); % Lymphocytes 15.9 % (20.5-51.1); % Neutrophils 73.8 % (42.2-75.2); Absolute Eosinophils 0.1 10^3/uL (0-0.7); Absolute Lymphocytes 0.4 10^3/uL (1.2-3.4); Absolute Monocytes 0.2 10^3/uL (0.1-0.6); Hematocrit 24.9 % (37.0-47.0); Hemoglobin 7.8 g/dL (12.0-16.0); Mean Corp Hgb Conc. 31.3 g/dL (33.0-37.0); Mean Corpuscular Hgb 27.3 pg (27.0-31.0); Mean Corpuscular Volume 87.1 fL (81.0-99.0); Mean Platelet Volume 9.1 fL (7.4-10.4); Nucleated Red Blood Cells % 0 %; Platelet Count 152 10^3/uL (130-400); Red Blood Cell Count 2.86 10^6/uL (4.20-5.40); Red Cell Dist. Width 19.2 % (11.5-14.5); White Blood Cell Count 2.7 10^3/uL (4.8-10.8)
[2023-10-07 10:04] LABS: HDL Cholesterol 50 mg/dl; LDL Cholesterol, Calculated 74 mg/dl; Total Cholesterol 156 mg/dl (50-199); Triglyceride 162 mg/dl (10-149); Very Low Density Lipoprotein 32 mg/dl (0-30)
[2023-10-07 10:27] LABS: ALT (SGPT) 29 U/L (0-35); AST (SGOT) 35 U/L (14-36); Albumin 3.6 g/dl (3.5-5.0); Alkaline Phosphatase 130 U/L (38-126); Blood Urea Nitrogen 23 mg/dl (7-17); Calcium 9.5 mg/dl (8.4-10.2); Carbon Dioxide 23 mmol/L (22-30); Chloride 102 mmol/L (98-107); Glucose 96 mg/dl (70-99); Potassium 4.5 mmol/L (3.5-5.1); Sodium 136 mmol/L (135-145); Total Bilirubin 0.5 mg/dl (0.2-1.3); eGFR > 60.00
[2023-10-07 10:56] LABS: TSH Reflex To Free T4 5.66 uIU/ml (0.47-4.68)
[2023-10-07 10:59] LABS: Cortisol, Random 14.2 ug/dl
[2023-10-07 11:28] LABS: Glycohemoglobin (HgbA1c) 5.1 % (4.0-5.6)
== END ==
LOC: REG 08:48
PROVIDERS: ATTENDING PHYSICIAN Family Medicine; REFERRING PHYSICIAN Internal Medicine Hematology & Oncology
DX: E78.2 Mixed hyperlipidemia (principal); R73.01 Impaired fasting glucose; C34.11 Malignant neoplasm of upper lobe, right bronchus or lung; I80.8 Phlebitis and thrombophlebitis of other sites; D64.81 Anemia due to antineoplastic chemotherapy; R53.83 Other fatigue; E27.9 Disorder of adrenal gland, unspecified
CPT/HCPCS: 36415; 80053; 80061; 82533; 83036; 84439; 84443; 85025

== ENCOUNTER 2023-10-09 10:54 | Outpatient (RCR) | payer MEDICARE, BC, SELFPAY ==
[2023-10-08 15:59] LABS: Iron 57 ug/dl (37-170)
[2023-10-08 16:09] LABS: Percent Saturation 19 % (20-50); Total Iron Binding Capacity 293 ug/dl (265-497)
[2023-10-09] MEDS: TYLENOL 650 MG PO (11:31)
[2023-10-09 11:41] VITALS: BP 129/85
[2023-10-09 11:43] VITALS: BP 129/85
[2023-10-09 12:00] VITALS: BP 104/62
[2023-10-09 14:14] VITALS: BP 111/63
== END 2023-10-12 23:59 | disposition home or self-care (01) ==
LOC: OID 10:54
PROVIDERS: ATTENDING PHYSICIAN Internal Medicine Hematology & Oncology; FAMILY PHYSICIAN Family Medicine
DX: C34.11 Malignant neoplasm of upper lobe, right bronchus or lung (principal); D64.81 Anemia due to antineoplastic chemotherapy; I80.8 Phlebitis and thrombophlebitis of other sites; R53.83 Other fatigue; E27.9 Disorder of adrenal gland, unspecified
CPT/HCPCS: 36430; 82728; 83540; 83550; 86850; 86900; 86901; 86920; P9016

== ENCOUNTER → 2023-10-21 09:59 | Outpatient (REF) | payer MEDICARE, BC, SELFPAY ==
[2023-10-21 11:35] LABS: % Basophils 0.3 % (0-2); % Eosinophils 0.5 % (0-6); % Immature Granulocytes 0.8 % (0-0.5); % Lymphocytes 4.3 % (20.5-51.1); % Monocytes 7.8 % (1.7-9.3); % Neutrophils 86.3 % (42.2-75.2); Absolute Basophils 0.1 10^3/uL (0-0.2); Absolute Eosinophils 0.1 10^3/uL (0-0.7); Absolute Immature Granulocytes 0.1 10^3/uL (0-0.05); Absolute Lymphocytes 0.7 10^3/uL (1.2-3.4); Absolute Monocytes 1.3 10^3/uL (0.1-0.6); Absolute Neutrophils 14.2 10^3/uL (1.4-6.5); Hematocrit 31.1 % (37.0-47.0); Hemoglobin 9.5 g/dL (12.0-16.0); Mean Corp Hgb Conc. 30.5 g/dL (33.0-37.0); Mean Corpuscular Hgb 27.9 pg (27.0-31.0); Mean Corpuscular Volume 91.5 fL (81.0-99.0); Mean Platelet Volume 9.8 fL (7.4-10.4); Nucleated Red Blood Cells % 0 %; Platelet Count 259 10^3/uL (130-400); Red Cell Dist. Width 22.1 % (11.5-14.5); White Blood Cell Count 16.5 10^3/uL (4.8-10.8)
[2023-10-21 11:48] LABS: Protein/creatinine Ratio 0.1; Urine Protein 6 mg/dl
[2023-10-21 12:06] LABS: ALT (SGPT) 22 U/L (0-35); AST (SGOT) 28 U/L (14-36); Alkaline Phosphatase 184 U/L (38-126); Blood Urea Nitrogen 18 mg/dl (7-17); Calcium 9.8 mg/dl (8.4-10.2); Carbon Dioxide 21 mmol/L (22-30); Chloride 103 mmol/L (98-107); Glucose 81 mg/dl (70-99); Potassium 4.4 mmol/L (3.5-5.1); Sodium 135 mmol/L (135-145); Total Bilirubin 0.4 mg/dl (0.2-1.3); Total Protein 6.5 g/dl (6.3-8.2); eGFR > 60.00
[2023-10-21 12:33] LABS: TSH Reflex To Free T4 6.62 uIU/ml (0.47-4.68)
[2023-10-21 13:02] LABS: Free T4 1.53 ng/dl (0.78-2.19)
== END ==
LOC: REG 09:59
PROVIDERS: ATTENDING PHYSICIAN Internal Medicine Hematology & Oncology; FAMILY PHYSICIAN Family Medicine
DX: C34.11 Malignant neoplasm of upper lobe, right bronchus or lung (principal); I80.8 Phlebitis and thrombophlebitis of other sites; D64.81 Anemia due to antineoplastic chemotherapy; R53.83 Other fatigue; E27.9 Disorder of adrenal gland, unspecified
CPT/HCPCS: 36415; 80053; 82570; 84156; 84439; 84443; 85025

== ENCOUNTER → 2023-10-24 12:45 | Outpatient (REF) | payer MEDICARE, BC, SELFPAY | LOC: RCS 12:45 | PROVIDERS: ATTENDING PHYSICIAN Internal Medicine Cardiovascular Disease; FAMILY PHYSICIAN Family Medicine | DX: R06.09 Other forms of dyspnea (principal) | CPT/HCPCS: 93306; 93356 ==

== ENCOUNTER → 2023-10-28 11:49 | Outpatient (REF) | payer MEDICARE, BC, SELFPAY ==
[2023-10-28 13:38] LABS: % Basophils 0.7 % (0-2); % Eosinophils 0.5 % (0-6); % Immature Granulocytes 0.7 % (0-0.5); % Lymphocytes 9.9 % (20.5-51.1); % Monocytes 6.4 % (1.7-9.3); % Neutrophils 81.8 % (42.2-75.2); Absolute Lymphocytes 0.4 10^3/uL (1.2-3.4); Absolute Monocytes 0.3 10^3/uL (0.1-0.6); Absolute Neutrophils 3.3 10^3/uL (1.4-6.5); Hematocrit 25.2 % (37.0-47.0); Hemoglobin 8.1 g/dL (12.0-16.0); Mean Corp Hgb Conc. 32.1 g/dL (33.0-37.0); Mean Corpuscular Hgb 28.1 pg (27.0-31.0); Mean Corpuscular Volume 87.5 fL (81.0-99.0); Mean Platelet Volume 9.9 fL (7.4-10.4); Nucleated Red Blood Cells % 0 %; Platelet Count 193 10^3/uL (130-400); Red Blood Cell Count 2.88 10^6/uL (4.20-5.40); Red Cell Dist. Width 20.6 % (11.5-14.5); White Blood Cell Count 4.1 10^3/uL (4.8-10.8)
[2023-10-28 14:57] LABS: ALT (SGPT) 27 U/L (0-35); AST (SGOT) 31 U/L (14-36); Albumin 3.6 g/dl (3.5-5.0); Alkaline Phosphatase 140 U/L (38-126); Blood Urea Nitrogen 29 mg/dl (7-17); Calcium 9.4 mg/dl (8.4-10.2); Carbon Dioxide 23 mmol/L (22-30); Chloride 100 mmol/L (98-107); Glucose 131 mg/dl (70-99); Potassium 4.5 mmol/L (3.5-5.1); Sodium 134 mmol/L (135-145); TSH Reflex To Free T4 4.44 uIU/ml (0.47-4.68); Total Bilirubin 0.5 mg/dl (0.2-1.3); eGFR > 60.00
[2023-10-29 11:54] LABS: Iron 66 ug/dl (37-170)
[2023-10-29 12:03] LABS: Percent Saturation 24 % (20-50); Total Iron Binding Capacity 269 ug/dl (265-497)
== END ==
LOC: REG 11:49
PROVIDERS: ATTENDING PHYSICIAN Internal Medicine Hematology & Oncology; FAMILY PHYSICIAN Family Medicine
DX: C34.11 Malignant neoplasm of upper lobe, right bronchus or lung (principal); I80.8 Phlebitis and thrombophlebitis of other sites; D64.81 Anemia due to antineoplastic chemotherapy; R53.83 Other fatigue; E27.9 Disorder of adrenal gland, unspecified
CPT/HCPCS: 36415; 80053; 82728; 83540; 83550; 84443; 85025

== ENCOUNTER → 2023-11-10 15:30 | Outpatient (REF) | payer MEDICARE, BC, SELFPAY ==
[2023-11-10 17:04] LABS: % Basophils 0.3 % (0-2); % Eosinophils 0.4 % (0-6); % Immature Granulocytes 2.2 % (0-0.5); % Lymphocytes 3.8 % (20.5-51.1); % Monocytes 5.7 % (1.7-9.3); % Neutrophils 87.6 % (42.2-75.2); Absolute Basophils 0.1 10^3/uL (0-0.2); Absolute Eosinophils 0.1 10^3/uL (0-0.7); Absolute Immature Granulocytes 0.5 10^3/uL (0-0.05); Absolute Monocytes 1.4 10^3/uL (0.1-0.6); Absolute Neutrophils 21.9 10^3/uL (1.4-6.5); Hematocrit 24.5 % (37.0-47.0); Hemoglobin 7.5 g/dL (12.0-16.0); Mean Corp Hgb Conc. 30.6 g/dL (33.0-37.0); Mean Corpuscular Hgb 28.2 pg (27.0-31.0); Mean Corpuscular Volume 92.1 fL (81.0-99.0); Mean Platelet Volume 9.7 fL (7.4-10.4); Nucleated Red Blood Cells % 0 %; Platelet Count 174 10^3/uL (130-400); Red Blood Cell Count 2.66 10^6/uL (4.20-5.40); Red Cell Dist. Width 23.4 % (11.5-14.5)
[2023-11-10 17:25] LABS: Protein/creatinine Ratio 0.1; Urine Protein 6 mg/dl
[2023-11-10 17:28] LABS: ALT (SGPT) 18 U/L (0-35); AST (SGOT) 26 U/L (14-36); Albumin 3.6 g/dl (3.5-5.0); Alkaline Phosphatase 178 U/L (38-126); Blood Urea Nitrogen 20 mg/dl (7-17); Calcium 8.7 mg/dl (8.4-10.2); Carbon Dioxide 21 mmol/L (22-30); Chloride 103 mmol/L (98-107); Glucose 124 mg/dl (70-99); Potassium 4.5 mmol/L (3.5-5.1); Sodium 133 mmol/L (135-145); Total Bilirubin 0.3 mg/dl (0.2-1.3); Total Protein 6.1 g/dl (6.3-8.2); eGFR > 60.00
[2023-11-10 17:42] LABS: Anisocytosis 1+; Macrocytosis 1+; Normal RBC Morphology No
[2023-11-10 17:44] LABS: Ovalocytes Slight; Polychromasia Slight
[2023-11-10 17:58] LABS: TSH Reflex To Free T4 3.43 uIU/ml (0.47-4.68)
== END ==
LOC: REG 15:30
PROVIDERS: ATTENDING PHYSICIAN Internal Medicine Hematology & Oncology; FAMILY PHYSICIAN Family Medicine
DX: C34.11 Malignant neoplasm of upper lobe, right bronchus or lung (principal); I80.8 Phlebitis and thrombophlebitis of other sites; D64.81 Anemia due to antineoplastic chemotherapy; R53.83 Other fatigue; E27.9 Disorder of adrenal gland, unspecified
CPT/HCPCS: 36415; 80053; 82570; 84156; 84443; 85025

== ENCOUNTER → 2023-11-17 15:50 | Outpatient (REF) | payer MEDICARE, BC, SELFPAY ==
[2023-11-17 18:41] LABS: Protein/creatinine Ratio 0.1; Urine Protein 9 mg/dl
[2023-11-17 20:32] LABS: % Basophils 0.4 % (0-2); % Eosinophils 0.3 % (0-6); % Immature Granulocytes 0.9 % (0-0.5); % Lymphocytes 3.7 % (20.5-51.1); % Monocytes 9.2 % (1.7-9.3); % Neutrophils 85.5 % (42.2-75.2); Absolute Basophils 0.1 10^3/uL (0-0.2); Absolute Eosinophils 0.1 10^3/uL (0-0.7); Absolute Immature Granulocytes 0.2 10^3/uL (0-0.05); Absolute Lymphocytes 0.8 10^3/uL (1.2-3.4); Absolute Monocytes 2.1 10^3/uL (0.1-0.6); Absolute Neutrophils 19.6 10^3/uL (1.4-6.5); Hematocrit 30.3 % (37.0-47.0); Hemoglobin 9.5 g/dL (12.0-16.0); Mean Corp Hgb Conc. 31.4 g/dL (33.0-37.0); Mean Corpuscular Hgb 28.4 pg (27.0-31.0); Mean Corpuscular Volume 90.4 fL (81.0-99.0); Mean Platelet Volume 9.2 fL (7.4-10.4); Nucleated Red Blood Cells % 0 %; Platelet Count 415 10^3/uL (130-400); Red Blood Cell Count 3.35 10^6/uL (4.20-5.40); Red Cell Dist. Width 20.6 % (11.5-14.5); White Blood Cell Count 22.9 10^3/uL (4.8-10.8)
== END ==
LOC: REG 15:50
PROVIDERS: ATTENDING PHYSICIAN Internal Medicine Hematology & Oncology; FAMILY PHYSICIAN Family Medicine
DX: C34.11 Malignant neoplasm of upper lobe, right bronchus or lung (principal); I80.8 Phlebitis and thrombophlebitis of other sites; D64.81 Anemia due to antineoplastic chemotherapy; R53.83 Other fatigue; E27.9 Disorder of adrenal gland, unspecified
CPT/HCPCS: 36415; 82570; 84156; 85025

== ENCOUNTER → 2023-11-18 13:08 | Outpatient (REF) | payer MEDICARE, BC, SELFPAY ==
[2023-11-18 14:35] LABS: TSH Reflex To Free T4 3.69 uIU/ml (0.47-4.68)
[2023-11-18 15:25] LABS: ALT (SGPT) 21 U/L (0-35); AST (SGOT) 30 U/L (14-36); Albumin 3.7 g/dl (3.5-5.0); Alkaline Phosphatase 174 U/L (38-126); Blood Urea Nitrogen 23 mg/dl (7-17); Calcium 9.5 mg/dl (8.4-10.2); Carbon Dioxide 23 mmol/L (22-30); Chloride 101 mmol/L (98-107); Glucose 96 mg/dl (70-99); Potassium 4.7 mmol/L (3.5-5.1); Sodium 133 mmol/L (135-145); Total Bilirubin 0.3 mg/dl (0.2-1.3); Total Protein 6.6 g/dl (6.3-8.2); eGFR > 60.00
== END ==
LOC: REG 13:08
PROVIDERS: ATTENDING PHYSICIAN Internal Medicine Hematology & Oncology
DX: C34.11 Malignant neoplasm of upper lobe, right bronchus or lung (principal); I80.8 Phlebitis and thrombophlebitis of other sites; D64.81 Anemia due to antineoplastic chemotherapy; R53.83 Other fatigue; E27.9 Disorder of adrenal gland, unspecified
CPT/HCPCS: 80053; 84443

== ENCOUNTER → 2023-12-01 16:14 | Outpatient (REF) | payer MEDICARE, BC, SELFPAY | LOC: REG 16:14 | PROVIDERS: ATTENDING PHYSICIAN Internal Medicine Hematology & Oncology | DX: C34.11 Malignant neoplasm of upper lobe, right bronchus or lung (principal); I80.8 Phlebitis and thrombophlebitis of other sites; D64.81 Anemia due to antineoplastic chemotherapy; R53.83 Other fatigue; E27.9 Disorder of adrenal gland, unspecified | CPT/HCPCS: 36415; 80053; 82570; 84156; 84439; 84443; 85025; 86850; 86900; 86901; 86920 ==

== ENCOUNTER 2023-12-02 10:58 | Outpatient (RCR) | payer MEDICARE, BC, SELFPAY ==
[2023-11-12 10:32] VITALS: BP 113/57
[2023-11-12 10:55] VITALS: BP 103/55
[2023-11-12 12:46] VITALS: BP 119/59
[2023-12-02 11:30] VITALS: BP 124/71
[2023-12-02 11:49] VITALS: BP 119/66
[2023-12-02 13:31] VITALS: BP 113/61
[2023-12-03 14:45] LABS: % Basophils 0.3 % (0-2); % Eosinophils 0.1 % (0-6); % Immature Granulocytes 0.3 % (0-0.5); % Lymphocytes 4.1 % (20.5-51.1); % Monocytes 11.1 % (1.7-9.3); % Neutrophils 84.1 % (42.2-75.2); Absolute Lymphocytes 0.4 10^3/uL (1.2-3.4); Absolute Monocytes 1.2 10^3/uL (0.1-0.6); Absolute Neutrophils 9.1 10^3/uL (1.4-6.5); Hemoglobin 9.2 g/dL (12.0-16.0); Mean Corp Hgb Conc. 32.9 g/dL (33.0-37.0); Mean Corpuscular Hgb 27.8 pg (27.0-31.0); Mean Corpuscular Volume 84.6 fL (81.0-99.0); Mean Platelet Volume 8.7 fL (7.4-10.4); Platelet Count 248 10^3/uL (130-400); Red Blood Cell Count 3.31 10^6/uL (4.20-5.40); Red Cell Dist. Width 18.6 % (11.5-14.5); White Blood Cell Count 10.8 10^3/uL (4.8-10.8)
[2023-12-09 09:04] LABS: % Basophils 0.1 % (0-2); % Eosinophils 0.1 % (0-6); % Immature Granulocytes 0.2 % (0-0.5); % Lymphocytes 4.5 % (20.5-51.1); % Monocytes 12.8 % (1.7-9.3); % Neutrophils 82.3 % (42.2-75.2); Absolute Lymphocytes 0.6 10^3/uL (1.2-3.4); Absolute Monocytes 1.8 10^3/uL (0.1-0.6); Absolute Neutrophils 11.4 10^3/uL (1.4-6.5); Hematocrit 27.1 % (37.0-47.0); Hemoglobin 8.9 g/dL (12.0-16.0); Mean Corp Hgb Conc. 32.8 g/dL (33.0-37.0); Mean Corpuscular Hgb 27.3 pg (27.0-31.0); Mean Corpuscular Volume 83.1 fL (81.0-99.0); Platelet Count 297 10^3/uL (130-400); Red Blood Cell Count 3.26 10^6/uL (4.20-5.40); Red Cell Dist. Width 19.6 % (11.5-14.5); White Blood Cell Count 13.8 10^3/uL (4.8-10.8)
[2023-12-09 10:05] LABS: ALT (SGPT) 14 U/L (0-35); AST (SGOT) 20 U/L (14-36); Albumin 3.2 g/dl (3.5-5.0); Alkaline Phosphatase 192 U/L (38-126); Blood Urea Nitrogen 20 mg/dl (7-17); Calcium 9.1 mg/dl (8.4-10.2); Carbon Dioxide 20 mmol/L (22-30); Chloride 93 mmol/L (98-107); Glucose 112 mg/dl (70-99); Magnesium 1.7 mg/dl (1.6-2.3); Potassium 4.6 mmol/L (3.5-5.1); Sodium 127 mmol/L (135-145); Total Bilirubin 0.7 mg/dl (0.2-1.3); Total Protein 6.2 g/dl (6.3-8.2); eGFR > 60.00
== END 2023-12-12 23:59 | disposition home or self-care (01) ==
LOC: OID 10:58
PROVIDERS: ATTENDING PHYSICIAN Internal Medicine Hematology & Oncology; FAMILY PHYSICIAN Family Medicine
DX: C34.11 Malignant neoplasm of upper lobe, right bronchus or lung (principal); D64.81 Anemia due to antineoplastic chemotherapy; I80.8 Phlebitis and thrombophlebitis of other sites; R53.83 Other fatigue; E27.9 Disorder of adrenal gland, unspecified
CPT/HCPCS: 36415; 36430; 80053; 83735; 85025; 86850; 86900; 86901; 86920; P9016

== ENCOUNTER 2023-12-11 12:11 | Emergency (ER) | payer MEDICARE, BC, SELFPAY ==
[2023-12-11] VITALS (19 sets, daily range): BP systolic 101–150; BP diastolic 58–87
--- NOTE | 2023-12-11 12:29 | ED.GENMED ---
History of Present Illness
General
Chief Complaint: Fatigue
Source: patient
Exam Limitations: none
Time Seen by Provider: 12/11/23 12:26
History of Present Illness
History of Present Illness:
See MDM
Past History
Past History
ED Past Medical History: Cancer and Hypothyroidism
ED Past Surgical History: None
Social History
Alcohol: None
Drug: None
Phy Exam
Physical Exam
Physical Exam:
See MDM
Course
Orders/Labs/Results
Orders:
Orders
12/11/23 12:29
0.9% Sodium Chloride 1000 ml [Nss] 1,000 ml IV BOLUS
12/11/23 12:35
Type+Screen Urgent
CMP [Comprehensive Metabolic Panel] Urgent
Complete Blood Count/With Diff Urgent
12/11/23 13:53
Blood Bank Products [* Blood Bank Products] Urgent
's Orders: Ulises Dos Santos, DO
Blood Bank Products: *Packed RBC Leuko(PRBC's)
Quantity: 2
Transfuse Today: Yes
Is product needed for scheduled surgery?: No
Reason: Anemia
Abnormal Lab Results
12/11/23
12:35
WBC 13.6 H 10^3/uL
(4.8-10.8)
RBC 2.83 L 10^6/uL
(4.20-5.40)
Hgb 7.5 L g/dL
(12.0-16.0)
Hct 23.9 L %
(37.0-47.0)
MCH 26.5 L pg
(27.0-31.0)
MCHC 31.4 L g/dL
(33.0-37.0)
RDW 20.4 H %
(11.5-14.5)
Abs Immat Gran (auto) 0.1 H 10^3/uL
(0-0.05)
Absolute Neuts (auto) 11.3 H 10^3/uL
(1.4-6.5)
Absolute Lymphs (auto) 0.5 L 10^3/uL
(1.2-3.4)
Absolute Monos (auto) 1.7 H 10^3/uL
(0.1-0.6)
Neutrophils % 82.7 H %
(42.2-75.2)
Lymphocytes % 3.9 L %
(20.5-51.1)
Monocytes % 12.8 H %
(1.7-9.3)
Sodium 129 L mmol/L
(135-145)
Chloride 96 L mmol/L
(98-107)
BUN 21 H mg/dl
(7-17)
Alkaline Phosphatase 196 H U/L
(38-126)
Total Protein 5.8 L g/dl
(6.3-8.2)
Albumin 2.8 L g/dl
(3.5-5.0)
Crossmatch IS Only See Detail
12/11/23 12:35
12/11/23 12:35
Vital Signs
Initial and Last Documented VS:
Initial Vital Signs
Temp Pulse Resp BP Pulse Ox
98.0 F 99 20 119/69 98
12/11/23 12:23 12/11/23 12:23 12/11/23 12:23 12/11/23 12:23 12/11/23 12:23
Last Documented Vital Signs
Temp Pulse Resp BP Pulse Ox
98.0 F 94 16 118/70 98
12/11/23 12:23 12/11/23 14:22 12/11/23 14:22 12/11/23 14:00 12/11/23 14:16
MDM/Problems Addressed
Differential Diagnosis Includes:
HPI and MDM Narrative:
78-year-old female presenting with generalized weakness. Patient states this feels like the last time she needed a blood transfusion. She has active lung cancer. Her last chemotherapy was 3 weeks ago. She received blood transfusion and fluids
last week. She denies chest pain or shortness of breath or urinary symptoms
On exam, she does have mildly dry mucous membranes. She is otherwise well-appearing and comfortable. Will obtain basic blood work looking for evidence of symptomatic anemia and will provide IV fluids. She denies black or red stools
Physical exam
General: Well appearing and non-toxic
HEENT: protecting airway. Dry mucous membranes
Neck: appears supple
CV: No evidence of cyanosis
Resp: No accessory muscle use
Abd: Non-distended
Extremities: No deformities. No leg edema
Neuro: alert
Psych: Normal affect
Skin: Intact
Problems Addressed including Acute and Chronic Conditions affecting care:
1. Generalized weakness
Acuity: acute
Prognosis: stable
Details: Likely in setting of side effect of chemotherapeutic drugs. Will look for evidence of symptomatic anemia
2. Dehydration
Acuity: acute
Prognosis: stable
Details: Will give IV fluids
Updates
Patient feeling mildly better after IV fluids. Hyponatremia improving. Patient found have a hemoglobin of 7.5. This is decreased from her recent transfusion. Patient consented for 2 units of packed red blood cells. She states she feels
comfortable going home
Differential Diagnosis (but not limited to): Symptomatic anemia, dehydration
Testing considered: Urinalysis
Drug therapy (if applicable): OTC meds, please see d/c instruction regarding Rx drugs
Amount and/or Complexity of Data Reviewed
Clinical info obtained from: Patient
External data reviewed: Recent transfusion of red blood cells last week
Labs I independently reviewed (but not limited to): Anemia, hyponatremia
Radiology: N/A
Pulse Ox: not hypoxic
EKG independently reviewed: N/A
[employer]er: N/A
Critical Care: N/A
Risk of Complication:
Social Determinants of health: Good social support
Discussed with other providers: N/A
Escalation of Care includes Admit/Obs: After being observed in the Emergency Department, pt stable for discharge.
Occasional wrong word or 'sound a like' substitutions may have occurred due to the inherent limitations of voice recognition software. Read the chart carefully and recognize, using context, where substitutions have occurred.
*Critical Care Note
Total Time (30-74mins, 75-104mins- exclusive of procedures): Not Applicable
ED Attending Note
-
Portions of this chart may have been created with voice recognition software.� Occasional wrong word or��sound alike� substitutions may have occurred due to the inherent limitations of voice recognition software.
Discharge Plan
Departure
Patient Disposition: Home (Routine Discharge)
Date of Disposition: 12/11/23
Time of Disposition: 14:25
Patient with high blood pressure during this ER visit?: No
Discharge Problem:
Symptomatic anemia, Acute hyponatremia
Prescriptions:
No Action
rosuvastatin 10 mg Tablet
10 mg PO HS
Anoro Ellipta 62.5-25 mcg/actuation Blister With Device
1 inh INHALATION R DAILY
loratadine [Claritin] 10 mg Tablet
10 mg PO HS
cholecalciferol (vitamin D3) [Vitamin D3] 50 mcg (2,000 unit) Capsule
50 mcg PO HS
levothyroxine 25 mcg tablet
25 mcg PO HS
melatonin 5 mg Tablet
5 mg PO HS
Gemzar + Carboplatin
1 dose IV Q3W
Patient Comments:
Pt unsure of date of last dose (12/01/22)
docusate sodium [Stool Softener] 100 mg Capsule
100 mg PO HSPRN PRN (Reason: constipation)
Visbiome 112.5 billion cell Capsule
1 cap PO HS
CoQ-10
1 cap PO HS
gemcitabine
1 dose IV Q4W
Patient Comments:
Pt unsure of last dose (12/02/23)
ibuprofen-acetaminophen [Advil Dual Action] 125-250 mg Tablet
1 tab PO Q8H PRN (Reason: pain)
Referrals:
Margaret Diaz DO [Family Provider] -
Activity Restrictions/Additional Instructions:
Please return for any worsening symptoms.
You may return at any time if you have further concerns.
Please follow up with your doctor at the first available appointment, preferably this week.
Please have your hemoglobin rechecked next week. Please follow-up with your oncologist as well.
Thank you for choosing [facility].
Interventions
Interventions:
*Risk Screen - Suicide Last Done: 12/11/23 13:54
*General Assessment Last Done: 12/11/23 13:54
*Neglect/Abuse Screening Last Done: 12/11/23 13:54
ED- Fall Risk Assessment Last Done: 12/11/23 13:54
*ED COVID-19 Vaccine History Last Done: 12/11/23 13:54
Discharge Date and Time
Print Language: OMANI
[2023-12-11] MEDS: NSS 1000 IV (12:38)
[2023-12-11 12:44] LABS: % Basophils 0.2 % (0-2); % Immature Granulocytes 0.4 % (0-0.5); % Lymphocytes 3.9 % (20.5-51.1); % Monocytes 12.8 % (1.7-9.3); % Neutrophils 82.7 % (42.2-75.2); Absolute Immature Granulocytes 0.1 10^3/uL (0-0.05); Absolute Lymphocytes 0.5 10^3/uL (1.2-3.4); Absolute Monocytes 1.7 10^3/uL (0.1-0.6); Absolute Neutrophils 11.3 10^3/uL (1.4-6.5); Hematocrit 23.9 % (37.0-47.0); Hemoglobin 7.5 g/dL (12.0-16.0); Mean Corp Hgb Conc. 31.4 g/dL (33.0-37.0); Mean Corpuscular Hgb 26.5 pg (27.0-31.0); Mean Corpuscular Volume 84.5 fL (81.0-99.0); Mean Platelet Volume 9.1 fL (7.4-10.4); Nucleated Red Blood Cells % 0 %; Platelet Count 317 10^3/uL (130-400); Red Blood Cell Count 2.83 10^6/uL (4.20-5.40); Red Cell Dist. Width 20.4 % (11.5-14.5); White Blood Cell Count 13.6 10^3/uL (4.8-10.8)
[2023-12-11 12:55] LABS: ALT (SGPT) 14 U/L (0-35); AST (SGOT) 25 U/L (14-36); Albumin 2.8 g/dl (3.5-5.0); Alkaline Phosphatase 196 U/L (38-126); Blood Urea Nitrogen 21 mg/dl (7-17); Calcium 8.8 mg/dl (8.4-10.2); Carbon Dioxide 22 mmol/L (22-30); Glucose 92 mg/dl (70-99); Potassium 4.7 mmol/L (3.5-5.1); Sodium 129 mmol/L (135-145); Total Bilirubin 0.6 mg/dl (0.2-1.3); Total Protein 5.8 g/dl (6.3-8.2); eGFR > 60.00
[2023-12-11 13:12] LABS: Chloride 96 mmol/L (98-107)
--- NOTE | 2023-12-11 20:02 | VATNOTE ---
deaccessed right subq port per protocol with 500 units heparin infused prior to deaccess. brisk blood return noted prior to.
== END 2023-12-11 19:55 | disposition home or self-care (01) ==
LOC: EMR 12:11
PROVIDERS: EMERGENCY PHYSICIAN Student in an Organized Health Care Education/Training Program; FAMILY PHYSICIAN Family Medicine
DX: R53.1 Weakness (principal); D64.9 Anemia, unspecified; E87.1 Hypo-osmolality and hyponatremia; E03.9 Hypothyroidism, unspecified; C34.90 Malignant neoplasm of unspecified part of unspecified bronchus or lung; Z92.21 Personal history of antineoplastic chemotherapy
CPT/HCPCS: 99285; 36430; 96374; 96361; 80053; 85025; 86850; 86900; 86901; 86920; P9016

== ENCOUNTER → 2023-12-15 13:41 | Outpatient (REF) | payer MEDICARE, BC, SELFPAY ==
[2023-12-15 15:05] LABS: % Basophils 0.1 % (0-2); % Immature Granulocytes 0.6 % (0-0.5); % Lymphocytes 1.4 % (20.5-51.1); % Monocytes 8.8 % (1.7-9.3); % Neutrophils 89.1 % (42.2-75.2); Absolute Immature Granulocytes 0.1 10^3/uL (0-0.05); Absolute Lymphocytes 0.3 10^3/uL (1.2-3.4); Absolute Monocytes 1.8 10^3/uL (0.1-0.6); Absolute Neutrophils 17.8 10^3/uL (1.4-6.5); Hematocrit 34.8 % (37.0-47.0); Mean Corp Hgb Conc. 30.7 g/dL (33.0-37.0); Mean Corpuscular Hgb 26.4 pg (27.0-31.0); Mean Corpuscular Volume 85.7 fL (81.0-99.0); Mean Platelet Volume 9.2 fL (7.4-10.4); Nucleated Red Blood Cells % 0 %; Platelet Count 414 10^3/uL (130-400); Red Blood Cell Count 4.06 10^6/uL (4.20-5.40); Red Cell Dist. Width 19.3 % (11.5-14.5)
[2023-12-15 15:28] LABS: ALT (SGPT) 18 U/L (0-35); AST (SGOT) 23 U/L (14-36); Albumin 3.1 g/dl (3.5-5.0); Alkaline Phosphatase 196 U/L (38-126); Blood Urea Nitrogen 38 mg/dl (7-17); Calcium 9.3 mg/dl (8.4-10.2); Carbon Dioxide 20 mmol/L (22-30); Chloride 103 mmol/L (98-107); Glucose 138 mg/dl (70-99); Potassium 4.2 mmol/L (3.5-5.1); Sodium 138 mmol/L (135-145); Total Bilirubin 0.3 mg/dl (0.2-1.3); Total Protein 6.1 g/dl (6.3-8.2); eGFR > 60.00
[2023-12-15 15:29] LABS: Hemoglobin 10.7 g/dL (12.0-16.0)
[2023-12-15 15:59] LABS: TSH Reflex To Free T4 4.96 uIU/ml (0.47-4.68)
[2023-12-15 16:28] LABS: Free T4 1.91 ng/dl (0.78-2.19)
[2023-12-15 16:37] LABS: Urine Protein 12 mg/dl (0-12)
== END ==
LOC: REG 13:41
PROVIDERS: ATTENDING PHYSICIAN Internal Medicine Hematology & Oncology; FAMILY PHYSICIAN Family Medicine
DX: C34.11 Malignant neoplasm of upper lobe, right bronchus or lung (principal); I80.8 Phlebitis and thrombophlebitis of other sites; D64.81 Anemia due to antineoplastic chemotherapy; R53.83 Other fatigue; E27.9 Disorder of adrenal gland, unspecified; R53.82 Chronic fatigue, unspecified
CPT/HCPCS: 36415; 80053; 82570; 84156; 84439; 84443; 85025

== ENCOUNTER → 2023-12-22 13:01 | Outpatient (REF) | payer MEDICARE, BC, SELFPAY ==
[2023-12-22 14:03] LABS: % Basophils 0.1 % (0-2); % Immature Granulocytes 0.5 % (0-0.5); % Lymphocytes 2.6 % (20.5-51.1); % Monocytes 7.9 % (1.7-9.3); % Neutrophils 88.9 % (42.2-75.2); Absolute Immature Granulocytes 0.1 10^3/uL (0-0.05); Absolute Lymphocytes 0.7 10^3/uL (1.2-3.4); Absolute Neutrophils 22.3 10^3/uL (1.4-6.5); Hematocrit 32.9 % (37.0-47.0); Hemoglobin 10.6 g/dL (12.0-16.0); Mean Corp Hgb Conc. 32.2 g/dL (33.0-37.0); Mean Corpuscular Hgb 26.5 pg (27.0-31.0); Mean Corpuscular Volume 82.3 fL (81.0-99.0); Mean Platelet Volume 9.6 fL (7.4-10.4); Nucleated Red Blood Cells % 0 %; Platelet Count 399 10^3/uL (130-400); Red Cell Dist. Width 19.4 % (11.5-14.5); White Blood Cell Count 25.1 10^3/uL (4.8-10.8)
[2023-12-22 14:33] LABS: ALT (SGPT) 24 U/L (0-35); AST (SGOT) 21 U/L (14-36); Alkaline Phosphatase 204 U/L (38-126); Blood Urea Nitrogen 51 mg/dl (7-17); Calcium 9.3 mg/dl (8.4-10.2); Carbon Dioxide 23 mmol/L (22-30); Chloride 97 mmol/L (98-107); Glucose 141 mg/dl (70-99); Potassium 4.6 mmol/L (3.5-5.1); Sodium 132 mmol/L (135-145); Total Bilirubin 0.4 mg/dl (0.2-1.3); Total Protein 6.1 g/dl (6.3-8.2); eGFR > 60.00
[2023-12-22 15:03] LABS: TSH Reflex To Free T4 4.19 uIU/ml (0.47-4.68)
== END ==
LOC: REG 13:01
PROVIDERS: ATTENDING PHYSICIAN Internal Medicine Hematology & Oncology; FAMILY PHYSICIAN Family Medicine
DX: C34.11 Malignant neoplasm of upper lobe, right bronchus or lung (principal); I80.8 Phlebitis and thrombophlebitis of other sites; D64.81 Anemia due to antineoplastic chemotherapy; R53.83 Other fatigue; E27.9 Disorder of adrenal gland, unspecified
CPT/HCPCS: 36415; 80053; 84443; 85025

== ENCOUNTER → 2023-12-29 13:25 | Outpatient (REF) | payer MEDICARE, BC, SELFPAY ==
[2023-12-29 14:44] LABS: % Basophils 0.1 % (0-2); % Immature Granulocytes 0.9 % (0-0.5); % Lymphocytes 1.7 % (20.5-51.1); % Monocytes 8.1 % (1.7-9.3); % Neutrophils 89.2 % (42.2-75.2); Absolute Immature Granulocytes 0.2 10^3/uL (0-0.05); Absolute Lymphocytes 0.4 10^3/uL (1.2-3.4); Absolute Monocytes 1.9 10^3/uL (0.1-0.6); Absolute Neutrophils 20.9 10^3/uL (1.4-6.5); Hematocrit 29.9 % (37.0-47.0); Hemoglobin 9.5 g/dL (12.0-16.0); Mean Corp Hgb Conc. 31.8 g/dL (33.0-37.0); Mean Corpuscular Hgb 26.1 pg (27.0-31.0); Mean Corpuscular Volume 82.1 fL (81.0-99.0); Mean Platelet Volume 9.8 fL (7.4-10.4); Nucleated Red Blood Cells % 0 %; Platelet Count 294 10^3/uL (130-400); Red Blood Cell Count 3.64 10^6/uL (4.20-5.40); Red Cell Dist. Width 19.7 % (11.5-14.5); White Blood Cell Count 23.4 10^3/uL (4.8-10.8)
[2023-12-29 15:16] LABS: ALT (SGPT) 28 U/L (0-35); AST (SGOT) 21 U/L (14-36); Albumin 2.9 g/dl (3.5-5.0); Alkaline Phosphatase 171 U/L (38-126); Blood Urea Nitrogen 33 mg/dl (7-17); Carbon Dioxide 22 mmol/L (22-30); Chloride 102 mmol/L (98-107); Glucose 100 mg/dl (70-99); Potassium 4.8 mmol/L (3.5-5.1); Sodium 135 mmol/L (135-145); Total Bilirubin 0.4 mg/dl (0.2-1.3); eGFR > 60.00
[2023-12-29 16:08] LABS: TSH Reflex To Free T4 1.86 uIU/ml (0.47-4.68)
== END ==
LOC: REG 13:25
PROVIDERS: ATTENDING PHYSICIAN Internal Medicine Hematology & Oncology; FAMILY PHYSICIAN Family Medicine
DX: C34.11 Malignant neoplasm of upper lobe, right bronchus or lung (principal); I80.8 Phlebitis and thrombophlebitis of other sites; D64.81 Anemia due to antineoplastic chemotherapy; R53.83 Other fatigue; E27.9 Disorder of adrenal gland, unspecified
CPT/HCPCS: 36415; 80053; 84443; 85025

== ENCOUNTER 2024-01-03 04:15 | Inpatient (IN) | payer MEDICARE, BC, SELFPAY ==
[2024-01-02 21:45] VITALS: BP 123/73
[2024-01-02 22:00] VITALS: BP 112/63
--- NOTE | 2024-01-02 22:15 | ED.GENMED ---
History of Present Illness
General
Chief Complaint: Weakness
Source: patient and spouse
Exam Limitations: none
Time Seen by Provider: 01/02/24 22:01
History of Present Illness
History of Present Illness:
This is a 78 year old female that comes in by ambulance with c/p lethargy. states that she has not eaten all day and been in bed horizontal all day. States that he felt she was not responding to him well and that she was searching for words.
States that he felt her eyes were glassy. States that this made him nervous. Patient is awake and talking and states that she is better now. States that she is a little nauseated and has some abd discomfort and is a little SOB. Denies any
fever, chills, chest pain, vomiting, diarrhea, headache, dizziness, urinary burning
Past History
Past History
ED Past Medical History: Cancer (Lung with mets to Colon), COPD, Hypercholesterolemia, Hypothyroidism and Other (memory loss, DVT, GI bleeding, Reynauds)
ED Past Surgical History: None and Other (Cataracts)
Social History
Tobacco: Former smoker
Alcohol: Occasional
Drug: None
Personal:
Living: with family
Review of Systems
Review of Systems
All Other Systems: ROS reviewed and negative except as documented in HPI and ROS
Constitutional: Reports no symptoms; Denies fever or chills
EENT: Reports no symptoms
Respiratory: Reports no symptoms; Denies cough or trouble breathing
Cardiac: Reports no symptoms; Denies chest pain
ABD/GI: Reports abdominal pain and nausea; Denies vomiting or diarrhea
: Reports no symptoms; Denies dysuria, frequency or urgency
Musculoskeletal: Reports no symptoms
Skin: Reports no symptoms
Neurological: Reports no symptoms; Denies dizzy or headache
Psychiatric: Reports no symptoms
Phy Exam
General Physical Exam
General Presentation: no apparent distress
General age: appears stated age
General Skin: warm and dry
General Habitus: elderly
General Mental: alert
General Hydration: appears well hydrated
ENT Exam
ENT Exam: TM's normal, pharynx normal and neck supple
Eye Exam
Eye Exam: EOMI
Cardiovascular Exam
Cardiovascular Exam: regular rate/rhythm, no edema and normal peripheral pulses
Pulmonary Exam
Pulmonary Exam: lungs clear, no respiratory distress, no rales, chest non tender, no crackles, no rhonchi, no wheezing and no cough
Gastrointestinal Exam
Gastrointestinal Exam: normal bowel sounds, non tender, soft, no organomegaly, no pulsatile mass and non distended
Musculoskeletal Exam
Musculoskeletal Exam: full ROM and no edema
Skin Exam
Skin Exam: normal color, warm/dry, no rash, no petechia and other (Right subclavian port)
Psychiatric Exam
Psychiatric Exam: normal mood/affect
Course
Orders/Labs/Results
Orders:
Orders
01/02/24 21:53
Electrocardiogram (*1) Urgent
Reason for Study: Other
Other Reason for Exam: Possible Sepsis
Cardiac Monitoring- Treatment ONCE
EKG- Treatment ONCE
IV Insert/Care/Rem.- Treatment PRN
O2 Therapy [RESP] Urgent
Titrate/Wean O2 to maintain O2 sat greater than (%): 93
Special Instructions: TO MAINTAIN CONTINUOUS O2 SATS > OR = 93%
Pulse Ox/cont/shift [RESP] Urgent
Quantity: 1
Special Instructions: CONTINUOUS
01/02/24 22:14
CT Head W/o Iv Contrast Urgent
Comment:
Reason For Exam: dIFFICULTY FINDING WORDS
Urinalysis Reflex To Culture Urgent
Date Specimen was Collected: 01/02/24
Time Specimen was Collected: 22:15
0.9% Sodium Chloride 1000 ml [Nss] 1,000 ml IV BOLUS
01/02/24 22:15
Ondansetron Injectable [Zofran] 4 mg IV NOW STA
01/02/24 22:28
Complete Blood Count/With Diff Urgent
Comprehensive Metabolic Panel Urgent
Lactic Acid Q4H
Comment: ON ICE, CANCEL 2ND ORDER IF FIRST LACTIC ACID LEVEL <2
Blood Culture Q30M
AUREA Source: Blood/Venous
Specimen Description:
Comment: FROM 2 SEPARATE SITES
01/02/24 22:30
Blood Culture Q30M
AUREA Source: Blood/Venous
Specimen Description:
Comment: FROM 2 SEPARATE SITES
01/03/24 01:26
0.9% Sodium Chloride 1000 ml [Nss] 1,000 ml IV BOLUS
01/03/24 02:00
Flush (0.9% Sodium Chloride) [Flush (Nss)] See Dose Instructions IV PER PROTOCOL
Abnormal Lab Results
01/02/24
22:28
WBC 23.6 H 10^3/uL
(4.8-10.8)
RBC 3.50 L 10^6/uL
(4.20-5.40)
Hgb 9.0 L g/dL
(12.0-16.0)
Hct 28.7 L %
(37.0-47.0)
MCH 25.7 L pg
(27.0-31.0)
MCHC 31.4 L g/dL
(33.0-37.0)
RDW 19.6 H %
(11.5-14.5)
Abs Immat Gran (auto) 0.1 H 10^3/uL
(0-0.05)
Absolute Neuts (auto) 20.7 H 10^3/uL
(1.4-6.5)
Absolute Lymphs (auto) 0.9 L 10^3/uL
(1.2-3.4)
Absolute Monos (auto) 1.9 H 10^3/uL
(0.1-0.6)
Immature Gran % 0.6 H %
(0-0.5)
Neutrophils % 87.6 H %
(42.2-75.2)
Lymphocytes % 3.6 L %
(20.5-51.1)
Sodium 129 L mmol/L
(135-145)
Carbon Dioxide 20 L mmol/L
(22-30)
BUN 31 H mg/dl
(7-17)
Alkaline Phosphatase 217 H U/L
(38-126)
Total Protein 5.8 L g/dl
(6.3-8.2)
Albumin 2.8 L g/dl
(3.5-5.0)
01/02/24 22:28
01/02/24 22:28
Leukocytosis (Consistent with prior labs), H/H low, Anemia, hyponatremia, Carbon dioxide slightly low. Dehydration. Alk phos elevation. Total protein low. Albumin low. urine negative for infection.
Vital Signs
Initial and Last Documented VS:
Initial Vital Signs
Temp Pulse Resp BP Pulse Ox
99.7 F 102 16 123/73 97
01/02/24 21:45 01/02/24 21:45 01/02/24 21:45 01/02/24 21:45 01/02/24 21:45
Last Documented Vital Signs
Temp Pulse Resp BP Pulse Ox
99.1 F 107 35 132/59 97
01/03/24 01:59 01/03/24 01:00 01/03/24 01:00 01/03/24 01:00 01/02/24 21:45
MDM/Problems Addressed
Differential Diagnosis Includes:
Dehydration. Mets to brain, CVA
MDM/Problems Addressed:
This is a 78 year old female that is brought in by her . states that she has not eaten all day and that she has been in bed. States that he felt she was not answering him right and felt that she was searching for her words. States
that her last Chemo treatment was 4 weeks ago.
Will check labs, IV fluids, Urine, CT head
Back into see patient. Explained that her WBC are elevated but this is consistent with prior labs. Her Sodium is low and she is dehydrated. Patient is very weak and was unable to get OOB to the BR. Will admit patient. Hospitalist notified.
Chronic conditions affecting care: Cancer
Acute Exacerbation and/or Progression of Chronic Illness: Cancer
*Radiology
Radiology exam reviewed: radiology read reviewed (CT head-No acute hemorrhage, herniation, or hydrocephalus. No calvarial fracture. The visualized paranasal sinuses and mastoid air cells are clear. )
*Pulse Oximetry
Patient hypoxic: no
*Stranding Machine Operator Helper Interpretation
Rate: tachycardiac
Heart Rate: 104
Rhythm: sinus tachycardia
*Critical Care Note
Total Time (30-74mins, 75-104mins- exclusive of procedures): Not Applicable
ED Attending Note
-
Portions of this chart may have been created with voice recognition software.� Occasional wrong word or��sound alike� substitutions may have occurred due to the inherent limitations of voice recognition software.
Discharge Plan
Departure
Patient Disposition: Admit
Date of Disposition: 01/03/24
Time of Disposition: 01:27
Admit to: Telemetry
Presentation/result/management discussed w/ accepting MD/DO: Hospitalist
Patient with high blood pressure during this ER visit?: Yes
Condition: Good
Covid-19: Not Applicable
Discharge Problem:
Weakness generalized, Acute dehydration, Acute hyponatremia
Prescriptions:
No Action
rosuvastatin 10 mg Tablet
10 mg PO HS
Anoro Ellipta 62.5-25 mcg/actuation Blister With Device
1 inh INHALATION R DAILY
loratadine [Claritin] 10 mg Tablet
10 mg PO HS
cholecalciferol (vitamin D3) [Vitamin D3] 50 mcg (2,000 unit) Capsule
50 mcg PO HS
levothyroxine 25 mcg tablet
25 mcg PO HS
melatonin 5 mg Tablet
5 mg PO HS
Gemzar + Carboplatin
1 dose IV Q3W
Patient Comments:
Pt unsure of date of last dose (12/01/22)
docusate sodium [Stool Softener] 100 mg Capsule
100 mg PO HSPRN PRN (Reason: constipation)
Visbiome 112.5 billion cell Capsule
1 cap PO HS
CoQ-10
1 cap PO HS
gemcitabine
1 dose IV Q4W
Patient Comments:
Pt unsure of last dose (12/02/23)
ibuprofen-acetaminophen [Advil Dual Action] 125-250 mg Tablet
1 tab PO Q8H PRN (Reason: pain)
Referrals:
UNKNOWN - PT DOES,NOT KNOW [Family Provider] -
Interventions
Interventions:
*Risk Screen - Suicide Last Done: 01/02/24 21:45
*General Assessment Last Done: 01/02/24 21:45
*Neglect/Abuse Screening Last Done: 01/02/24 21:45
*ED COVID-19 Vaccine History Last Done: 01/02/24 21:49
ED- Cardiac Assessment Last Done: 01/02/24 21:54
ED- Neurological Assessment Last Done: 01/02/24 21:54
ED- Pulmonary Assessment Last Done: 01/02/24 21:54
Discharge Date and Time
Print Language: MACANESE
[2024-01-02] MEDS: NSS 1000 IV (22:31)
[2024-01-02 22:40] LABS: % Basophils 0.1 % (0-2); % Eosinophils 0.1 % (0-6); % Immature Granulocytes 0.6 % (0-0.5); % Lymphocytes 3.6 % (20.5-51.1); % Neutrophils 87.6 % (42.2-75.2); Absolute Immature Granulocytes 0.1 10^3/uL (0-0.05); Absolute Lymphocytes 0.9 10^3/uL (1.2-3.4); Absolute Monocytes 1.9 10^3/uL (0.1-0.6); Absolute Neutrophils 20.7 10^3/uL (1.4-6.5); Hematocrit 28.7 % (37.0-47.0); Mean Corp Hgb Conc. 31.4 g/dL (33.0-37.0); Mean Corpuscular Hgb 25.7 pg (27.0-31.0); Mean Platelet Volume 9.3 fL (7.4-10.4); Nucleated Red Blood Cells % 0 %; Platelet Count 267 10^3/uL (130-400); Red Cell Dist. Width 19.6 % (11.5-14.5); White Blood Cell Count 23.6 10^3/uL (4.8-10.8)
[2024-01-02 22:54] LABS: Lactic Acid 0.7 mmol/L (0.7-2.0)
[2024-01-02 22:56] LABS: ALT (SGPT) 26 U/L (0-35); AST (SGOT) 21 U/L (14-36); Albumin 2.8 g/dl (3.5-5.0); Alkaline Phosphatase 217 U/L (38-126); Blood Urea Nitrogen 31 mg/dl (7-17); Calcium 8.5 mg/dl (8.4-10.2); Carbon Dioxide 20 mmol/L (22-30); Chloride 99 mmol/L (98-107); Glucose 92 mg/dl (70-99); Potassium 4.9 mmol/L (3.5-5.1); Sodium 129 mmol/L (135-145); Total Protein 5.8 g/dl (6.3-8.2); eGFR > 60.00
[2024-01-02 23:00] VITALS: BP 113/67
[2024-01-03] VITALS (8 sets, daily range): BP systolic 101–132; BP diastolic 56–65; BMI 20.3
[2024-01-03 00:45] LABS: Anisocytosis 1+; Hypersegmented Neutrophil 1+; Normal RBC Morphology No; Ovalocytes 1+
[2024-01-03 00:46] LABS: Polychromasia Occasional
[2024-01-03 00:47] LABS: Hypochromasia OCC; Stomatocytes Occasional; Target Cells Occasional
[2024-01-03 01:21] LABS: Urine Albumin Negative (Neg - Trace); Urine Bilirubin Negative (Negative); Urine Character Clear (Clear); Urine Color Yellow; Urine Glucose Negative (Negative); Urine Ketone Negative (Negative); Urine Leukocyte Negative (Negative); Urine Nitrite Negative (Negative); Urine Occult Blood Negative (Negative); Urine Urobilinogen Negative (Neg - 1+)
[2024-01-03] MEDS: NSS 1000 IV (01:52)
--- NOTE | 2024-01-03 02:26 | HPS.HSE ---
Family Physician
-
Family Physician: NOT KNOW UNKNOWN - PT DOES
Chief Complaint
-
lethargic
History of Present Illness
I could not get any information from the patient is lethargic
Information gathered by chart review and speaking with the ER staff.
HPI
78F HX DVT on Eliquis, HX LGIB from cplonic mass, metastatic Lung CA on chemo followed by Dr. Rodriguez
BiB EMD for lethargy
lethargy ;
- noted yesterday
- as per , she has not eaten all day yesterday
- she is less interactive with
- PPOS nausea and mild SoB , she is tachpnic at ER
- Denied cough
ROS:
Denies any fever, chills, chest pain, vomiting, diarrhea, headache, dizziness, urinary burning
Medical History
Past Medical History
Past Medical History: Reports Other
Additional Past Medical History:
Lung cancer mets to the colon
Left upper extremity DVT
Hypothyroidism
Hyperlipidemia
Past Surgical History: Reports None
Social History
Tobacco: Former Smoker
Alcohol: Occasional
Drug: None
Personal:
Living: With Family
Family History
Family History: Not pertinent
Allergies / Home Medications
Allergies reflects when Allergies were last updated in [facility].
Home Medications with original date entered in [facility]
Allergy/Medication List:
Allergies
Allergy/AdvReac Type Severity Reaction Status Date / Time
cat dander Allergy Unknown Unknown Verified 08/25/23 14:41
seasonal Allergy Unknown Uncoded 08/25/23 14:41
Home Medications
rosuvastatin 10 mg tablet 10 mg PO HS 02/12/22
umeclidinium 62.5 mcg-vilanterol 25 mcg/actuation powdr for inhalation (Anoro Ellipta) 1 inh inhalation R DAILY 07/01/22
cholecalciferol (vitamin D3) 50 mcg (2,000 unit) capsule (Vitamin D3) 50 mcg PO DAILY 11/11/22
lactobacillus comb no.10 20 billion cell capsule (Probiotic) 20,000 mmu cells PO DAILY 11/11/22
loratadine 10 mg tablet (Claritin) 10 mg PO . DIRECTED 11/11/22
ondansetron 8 mg disintegrating tablet 8 mg PO Q8H PRN nausea 11/11/22
prochlorperazine maleate 10 mg tablet (Compazine) 10 mg PO Q6H PRN nausea 11/11/22
Gemzar + Carboplatin 1 dose IV Q3W 08/25/23
apixaban 2.5 mg tablet (Eliquis) 2.5 mg PO BID 08/25/23
gemcitabine 1 gram intravenous solution 0 mg IV Q4W 08/25/23
levothyroxine 25 mcg tablet 25 mcg PO DAILY 08/25/23
melatonin 5 mg tablet 5 mg PO HS PRN insomnia 08/25/23
Review of Systems
-
Constitutional: Reports See HPI
EENT: Reports No Symptoms
Respiratory: Reports See HPI and Trouble Breathing
Cardiac: Reports No Symptoms
Abdomen/GI: Reports Bloody Stools
: Reports No Symptoms
Musculoskeletal: Reports No Symptoms
Skin: Reports No Symptoms
Neurological: Reports Other (lethargic )
Endocrine: Reports No Symptoms
Hematologic/Lymphatic: Reports No Symptoms
Psych: Reports No Symptoms
Physical Exam
Vital Signs
Vital Signs
Temp Pulse Resp BP Pulse Ox
99.1 F 107 35 132/59 97
01/03/24 01:59 01/03/24 01:00 01/03/24 01:00 01/03/24 01:00 01/02/24 21:45
Physical Exam
General: Well Developed, Well Nourished and No Apparent Distress
HEENT: NormoCephalic, Moist mucous membranes and Atraumatic
Respiratory: Clear
Cardiac: S1/S2 and Regular Rhythm; No Murmur or Rub
GI: Soft, Non Tender, Non Distended and Normal Bowel Sounds; No Organomegaly
Rectal: Deferred by Provider
Musculoskeletal: No Clubbing, No Cyanosis and No Edema
Skin: No Rash
Neuro: Nonfocal/grossly intact
Psych: Calm
Laboratory Results
-
01/02/24 22:28
01/02/24 22:28
Laboratory Results
Lactic Acid Cancelled 01/03/24 02:00
Total Bilirubin 1.0 mg/dl (0.2-1.3) 01/02/24 22:28
AST 21 U/L (14-36) 01/02/24 22:28
ALT 26 U/L (0-35) 01/02/24 22:28
Alkaline Phosphatase 217 U/L (38-126) H 01/02/24 22:28
Data Reviewed
-
CT Scan: Report Reviewed by me
Lab Data: Labs Reviewed by me
Old Records: Reviewed
Impression/Plan
-
Reviewed VS: T 99.7 130/60 HR 107 RR 35 POx 97
Data
WCC 23
Hgb 9 - baseline is mid 9s
Plt 267
Na 129 - baseline is 127 - 132
CO2 20
BUN 31
nl Cr
nl eGFR
Pending LA
Pending PCT
Albumin 2.8
NEG UA
BCx sent
HCT: No acute pathology
10/24/23 ECHO
LVEF 65
Trace MR
Normal right heart with normal pulmonary artery pressure
Last hospitalist admission: 08/25/23 - 08/28/23
PDX: Lower GI bleed likely secondary to colonic mass exacerbated by Eliquis
severe thrombocytopenia Pancytopenia likely worsen due to severe chemotherapy
Epistaxis likely in setting of thrombocytopenia and worsened by Eliquis
Symptomatic anemia worsened due to chemotherapy/Eliquis/suspected lower GI bleed and epistaxis
ASSESSMENT & PLAN
Pending Rx reconciliation
Lethargy due to hypoactive encephalopathy unclear origin: she is more awake and alert s/p IVF per spouse
DDX: acute infection vs. metabolic dysfunction and dehydration vs. ADES of anti histamines
- NEG HCT
- Unremarkable UA
- check CXR
- BCx
- check procalcitonin till then hold off ABx now
- held loratadine , Advil Dual action and melatonin
- Fall precaution
-PT/OT
Leucocytosis - leukemoid reaction vs acute infective process vs hemoconcentration vs recent GCSF
Nl platelets
Current Hgb is close to base line
HX pancytopenia
- trend CBC
- f/u BCx
Acute on hyponatremia chronic marginal hyponatremia DDX: hypovolemia, SIAD due to met CA dz
S/p 2 L NS at ER
Normotensive
- No further IVF
- trend Na r in AM
Non-small cell metastatic lung CA
Colonic mass -biopsy confirmed second to metastatic lung cancer
- f/u with Dr Rodriguez
HX right upper extremity DVT
- Pending Rx reconciliation for Eliquis
Hypothyroidism
- on Levothyroxine
- TSH in AM
Hyperlipidemia
- on DINING SERVER Statin
DVT Px: SCD
Code: full
IP MS
[2024-01-03] MEDS: STRIVERDI RESPIMAT 2 PUFF INH (07:51)
[2024-01-03] MEDS: SPIRIVA RESPIMAT 2.5 MCG 2 PUFF INH (07:52)
[2024-01-03] MEDS: ZOFRAN 4 MG IV (08:17)
[2024-01-03 11:04] LABS: Free T4 1.71 ng/dl (0.78-2.19)
--- NOTE | 2024-01-03 12:48 | W.PN.HOSP.TC ---
Today's Communication/Plan
-
restart dexamethasone
fluid restriction
Onc consulted
Assessment / Plan
Assessment / Plan
General: Well Developed, Well Nourished and No Apparent Distress; Lethargic
HEENT: NormoCephalic, Moist mucous membranes and Atraumatic
Respiratory: Clear
Cardiac: S1/S2 and Regular Rhythm; No Murmur or Rub
GI: Soft, Non Tender, Non Distended and Normal Bowel Sounds; No Organomegaly
Rectal: Deferred by Provider
Musculoskeletal: No Clubbing, No Cyanosis and No Edema
Skin: No Rash
Neuro: Nonfocal/grossly intact; AAOx3
Psych: Calm;
Lethargy
-most likely 2/2 to rapid discontinuation of dexamethasone v chemo/cancer related v less likely infection
-TFTs WNL
-Resume Dexamethasone
-IVF
-no evidence of infection at this time, no productive cough; tachypnea; resp symptoms, UTI symptoms
-F/u SARS-CoV-2, FLU
Leucocytosis - most likely leukemoid reaction vs less likely acute infection vs recent GCSF
-monitor fever curve, WBC
Acute hyponatremia
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
-fluid restriction
-ctm
Non-small cell metastatic lung CA
Colonic mass -biopsy con
-confirmed second to metastatic lung cancer
- f/u with Dr Rodriguez
-Consult Onc
HX right upper extremity DVT
- appears not to be on anticoagulation at this point
Hypothyroidism
- on Levothyroxine
-free t4 wnl
Hyperlipidemia
- on PESTICIDE USE MEDICAL COORDINATOR Statin
DVT Px: HSQ
Code: full
Total time spent on today's encounter was 50 minutes which included time spent in counseling the patient/family regarding diagnosis and treatment plan as listed above, goals of care, and symptom management. Case was discussed with nursing staff,
specialists, and care coordinators/case management. All labs and imaging personally reviewed by me. Remainder the time spent in detailed review of previous records, lab data, imaging, and other medical provider documentation.
Anticipated Discharge: 24 - 48 hours
Subjective/Interval History
-
Date of Service: January 03, 2024
Lethargic although alert and x 3 upon examination
Objective Data
-
Vital Signs:
Vital Signs
Temp Pulse Resp BP Pulse Ox
99.4 F 108 16 107/62 97
01/03/24 07:25 01/03/24 08:01 01/03/24 08:01 01/03/24 07:25 01/03/24 09:46
Review of Systems
-
History Source: Patient
All other systems: Not reviewed unless documented
Data Reviewed
-
Total Time Spent with Patient (in minutes): 55
CT Scan: Image personally visualized and interpreted and Report Reviewed by me
Labs: Labs Reviewed by me
[2024-01-03] MEDS: DECADRON 2 MG PO ×2 (13:17→20:35)
[2024-01-03 14:01] LABS: COVID-19 Antigen Negative (Negative)
[2024-01-03] MEDS: HEPARIN 5000 UNITS SC (15:38)
--- NOTE | 2024-01-03 19:07 | CON.ONC ---
Impression
Impression
recurrent dehydration/ hyponatremia with hx bilateral adrenal irradiation likely adrenal insufficiency
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
Plan
Plan
emphasized need to maintain replacement therapy and consider sedative hypnotic for sleep
check AM cortisol/DHEAS
followup in hospital
Patient History
History of Present Illness
78yoWF on 3rd line therapy of clinical stage CECI gr 3 adenocarcinoma of the right lung with intrapulm mets and adb jeevan disease with hx of having radiation therapy for bilateral adrenal mets disease completed 01/2023 admitted for 2nd month with
confusion and dehydration with hyponatremia this most recent episode treated wtih standing BID order for dex 2mg BID though she s having trouble sleeping causing them to wean off the meds
Past-Medical/Surgical History
Asthma
High cholesterol
Arthritis
Face lift
Pilondial cys
Patient Medication
�Medication �Instructions �Recorded �Confirmed �Last Taken �Type
rosuvastatin 10 mg tablet 10 mg PO HS High Cholesterol 02/12/22 12/02/23 12/01/23 History
umeclidinium 62.5 mcg-vilanterol 1 inh inhalation R DAILY 07/01/22 01/03/24 01/01/24 History
25 mcg/actuation powdr for Lung/Breathing Issues
inhalation (Anoro Ellipta)
cholecalciferol (vitamin D3) 50 50 mcg PO HS Supplement 11/11/22 01/03/24 01/01/24 History
mcg (2,000 unit) capsule (Vitamin
D3)
loratadine 10 mg tablet (Claritin) 10 mg PO HS Allergies 11/11/22 12/02/23 12/01/23 History
Gemzar + Carboplatin 1 dose IV Q3W Cancer 08/25/23 12/02/23 10/22/23 History
levothyroxine 25 mcg tablet 25 mcg PO HS Thyroid 08/25/23 12/02/23 12/01/23 History
melatonin 5 mg tablet 5 mg PO HS insomnia 08/25/23 12/02/23 12/01/23 History
CoQ-10 1 cap PO HS 09/01/23 01/03/24 01/01/24 History
Lactobac no.2-Bifidobac no.1-S. 1 cap PO HS 09/01/23 01/03/24 01/01/24 History
thermo 112.5 billion cell capsule
(Visbiome)
docusate sodium 100 mg capsule 100 mg PO HSPRN PRN constipation 09/01/23 01/03/24 01/01/24 History
(Stool Softener)
gemcitabine 1 dose IV Q4W 09/01/23 12/02/23 10/29/23 History
ibuprofen 125 mg-acetaminophen 250 1 tab PO Q8H PRN pain 12/02/23 12/02/23 11/18/23 History
mg tablet (Advil Dual Action)
dexamethasone 2 mg tablet 2 mg PO BID 01/03/24 01/03/24 01/01/24 History
Active Medications
Generic Name Dose Route Start Last Admin
Trade Name Freq PRN Reason Stop Dose Admin
Acetaminophen 650 mg 01/03/24 04:17
Acetaminophen 325 Mg Tablet PO 01/31/24 04:16
Q4HPRN PRN
mild pain/KENDRICK/temp> 100.4F
Bisacodyl 10 mg 01/03/24 04:17
Bisacodyl 10 Mg Rectal Suppository RECTAL 01/31/24 04:16
[id number] PRN
constipation
Dexamethasone 2 mg 01/03/24 13:00 01/03/24 13:17
Dexamethasone 2 Mg Tablet PO 01/31/24 12:59 2 mg
BID ROMAN Administration
Docusate Sodium 100 mg 01/03/24 12:10
Docusate Sodium 100 Mg Capsule PO 01/31/24 12:09
HSPRN PRN
constipation
Heparin Sodium 5,000 units 01/03/24 16:00 01/03/24 15:38
Heparin 5,000 Units/Ml 1 Ml Vial SC 01/31/24 15:59 5,000 units
Q8 ROMAN Administration
Heparin Sodium (Porcine) 500 unit 01/03/24 07:41 01/03/24 08:14
Heparin Flush Pf (100 Unit/Ml) 5 Ml Syringe IV 01/31/24 07:40 500 unit
PRN PRN Administration
SUBCUTANEOUS PORT FLUSH
Levothyroxine Sodium 25 mcg 01/03/24 22:00
Levothyroxine 25 Mcg Tablet PO 01/31/24 21:59
HS ROMAN
Loratadine 10 mg 01/03/24 22:00
Loratadine 10 Mg Tablet PO 01/31/24 21:59
HS ROMAN
Olodaterol 2 puff 01/03/24 08:00 01/03/24 07:51
Olodaterol (Striverdi Respimat) 2.5 Mcg Inhaler INH 01/31/24 07:59 2 puff
R DAILY ROMAN Administration
Ondansetron HCl 4 mg 01/03/24 04:17 01/03/24 08:17
Ondansetron 4 Mg/2 Ml Vial IV 01/31/24 04:16 4 mg
Q6HPRN PRN Administration
nausea and vomiting
Polyethylene Glycol 17 grams 01/03/24 04:17
Polyethylene Glycol Powder 17 Grams Packet PO 01/31/24 04:16
DAILYPRN PRN
constipation
Rosuvastatin Calcium 10 mg 01/03/24 22:00
Rosuvastatin (Crestor) 10 Mg Tablet PO 01/31/24 21:59
HS ROMAN
Senna/Docusate Sodium 1 tablet 01/03/24 04:17
Docusate W/Senna (Katherine-Colace) Tablet PO 01/31/24 04:16
BIDPRN PRN
constipation
Sodium Chloride 0 flush 01/03/24 02:00
Sodium Chloride 0.9% (Flush) Syringe IV 01/31/24 01:59
PER PROTOCOL ROMAN
Tiotropium Elmore 2 puff 01/03/24 08:00 01/03/24 07:52
Tiotropium (Spiriva Respimat) 2.5 Mcg Inhaler INH 01/31/24 07:59 2 puff
R DAILY ROMAN Administration
Review of Systems
-
History Source: Patient, Family and Records
All Other Systems: Reviewed and Negative
Physical Exam
-
General: Comfortable
HEENT: Moist Mucous Membranes
Cardiology: Normal Sinus Rhythm
Pulmonary: Clear
GI: Soft and Normal Bowel Sounds
Musculoskeletal: No Clubbing, No Cyanosis and No Edema
Extremities: Pulses Present
Neurology: Non Focal
Labs
Lab Results
WBC 23.6 10^3/uL (4.8-10.8) H 01/02/24 22:28
RBC 3.50 10^6/uL (4.20-5.40) L 01/02/24:28
Hgb 9.0 g/dL (12.0-16.0) L 01/02/24 22:28
Hct 28.7 % (37.0-47.0) L 01/02/24:28
MCV 82.0 fL (81.0-99.0) 01/02/24 22:28
MCH 25.7 pg (27.0-31.0) L 01/02/24:28
MCHC 31.4 g/dL (33.0-37.0) L 01/02/24 22:28
RDW 19.6 % (11.5-14.5) H 01/02/24:28
Plt Count 267 10^3/uL (130-400) 01/02/24:
MPV 9.3 fL (7.4-10.4) 01/02/24:28
Abs Immat Gran (auto) 0.1 10^3/uL (0-0.05) H 01/02/24 22:28
Absolute Neuts (auto) 20.7 10^3/uL (1.4-6.5) H 01/02/24 22:
Absolute Lymphs (auto) 0.9 10^3/uL (1.2-3.4) L 01/02/24:28
Absolute Monos (auto) 1.9 10^3/uL (0.1-0.6) H 01/02/24:
Absolute Eos (auto) 0.0 10^3/uL (0-0.7) 01/02/24:
Absolute Basos (auto) 0.0 10^3/uL (0-0.2) 01/02/24:
Immature Gran % 0.6 % (0-0.5) H 01/02/24:
Neutrophils % 87.6 % (42.2-75.2) H 01/02/24:
Lymphocytes % 3.6 % (20.5-51.1) L 01/02/24:
Monocytes % 8.0 % (1.7-9.3) 01/02/24:
Eosinophils % 0.1 % (0-6) 01/02/24:
Basophils % 0.1 % (0-2) 01/02/24:
Creatinine 0.7 mg/dL (0.6-1.0) 01/02/24:
Vital Signs
Vital Signs
Temp Pulse Resp BP Pulse Ox
99.9 F 98 14 110/56 97
01/03/24 15:30 01/03/24 15:30 01/03/24 15:30 01/03/24 15:30 01/03/24 09:46
[2024-01-03] MEDS: SYNTHROID 25 MCG PO (20:35)
[2024-01-03] MEDS: CRESTOR 10 MG PO (20:35)
[2024-01-03] MEDS: CLARITIN 10 MG PO (20:36)
[2024-01-04] MEDS: HEPARIN 5000 UNITS SC ×4 (00:48→23:22)
[2024-01-04 04:53] LABS: Hematocrit 24.5 % (37.0-47.0); Hemoglobin 7.9 g/dL (12.0-16.0); Mean Corp Hgb Conc. 32.2 g/dL (33.0-37.0); Mean Corpuscular Hgb 25.7 pg (27.0-31.0); Mean Corpuscular Volume 79.8 fL (81.0-99.0); Mean Platelet Volume 9.8 fL (7.4-10.4); Platelet Count 247 10^3/uL (130-400); Red Blood Cell Count 3.07 10^6/uL (4.20-5.40); Red Cell Dist. Width 19.2 % (11.5-14.5); White Blood Cell Count 14.9 10^3/uL (4.8-10.8)
[2024-01-04 05:23] LABS: ALT (SGPT) 23 U/L (0-35); AST (SGOT) 22 U/L (14-36); Albumin 2.4 g/dl (3.5-5.0); Alkaline Phosphatase 223 U/L (38-126); Blood Urea Nitrogen 31 mg/dl (7-17); Calcium 8.9 mg/dl (8.4-10.2); Carbon Dioxide 20 mmol/L (22-30); Chloride 105 mmol/L (98-107); Estimated Creatinine Clearance 63 ml/min; Glucose 127 mg/dl (70-99); Potassium 4.5 mmol/L (3.5-5.1); Sodium 134 mmol/L (135-145); Total Bilirubin 0.7 mg/dl (0.2-1.3); Total Protein 5.1 g/dl (6.3-8.2); eGFR > 60.00
[2024-01-04 06:00] VITALS: BMI 18.8
[2024-01-04 07:45] VITALS: BP 98/56
[2024-01-04] MEDS: SPIRIVA RESPIMAT 2.5 MCG 2 PUFF INH (07:45)
[2024-01-04] MEDS: STRIVERDI RESPIMAT 2 PUFF INH (07:46)
--- NOTE | 2024-01-04 08:36 | W.PN.HOSP.TC ---
Today's Communication/Plan
-
f/u aldosterone
cont dexamethasone
PT/OT
Assessment / Plan
Assessment / Plan
General: Well Developed, Well Nourished and No Apparent Distress; much more energetic today
HEENT: NormoCephalic, Moist mucous membranes and Atraumatic
Respiratory: Clear
Cardiac: S1/S2 and Regular Rhythm; No Murmur or Rub
GI: Soft, Non Tender, Non Distended and Normal Bowel Sounds; No Organomegaly
Rectal: Deferred by Provider
Musculoskeletal: No Clubbing, No Cyanosis and No Edema
Skin: No Rash
Neuro: Nonfocal/grossly intact; AAOx3
Psych: Calm;
Lethargy
-most likely 2/2 to rapid discontinuation of dexamethasone v chemo/cancer related v less likely infection
-TFTs, cortisol WNL
� Follow-up aldosterone although now back on dexamethasone
-Continue dexamethasone - educated on not discontinuing by herself
-IVF
-no evidence of infection at this time, no productive cough; tachypnea; resp symptoms, UTI symptoms
-F/u SARS-CoV-2, FLU negative
-PT/OT - initially with snf recs although should re-eval again as more energetic today
Leucocytosis - most likely leukemoid reaction vs less likely acute infection vs recent GCSF
-monitor fever curve, WBC
Acute hyponatremia
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
-fluid restriction
-ctm
Non-small cell metastatic lung CA
Colonic mass -biopsy con
-confirmed second to metastatic lung cancer
- f/u with Dr Rodriguez
-Consult Onc
HX right upper extremity DVT
- appears not to be on anticoagulation at this point
Hypothyroidism
- on Levothyroxine
-free t4 wnl
Hyperlipidemia
- on MASTER CRAFTSMAN Statin
DVT Ppx: HSQ
Code: full
Anticipated Discharge: Within 24 hours
Subjective/Interval History
-
Date of Service: January 04, 2024
energy much improved today;
Objective Data
-
Labs:
Laboratory Results
01/04/24
04:33
WBC 14.9 H
Hgb 7.9 L
Hct 24.5 L
Plt Count 247
Sodium 134 L
Potassium 4.5
Chloride 105
Carbon Dioxide 20 L
BUN 31 H
Creatinine 0.6
Glucose 127 H
Calcium 8.9
Total Bilirubin 0.7
AST 22
ALT 23
Alkaline Phosphatase 223 H
Vital Signs:
Vital Signs
Temp Pulse Resp BP Pulse Ox
96.5 F L 78 14 101/58 100
01/04/24 04:02 01/04/24 07:54 01/04/24 07:54 01/03/24 23:30 01/04/24 07:54
I&O
01/03/24 01/04/24 01/05/24
06:59 06:59 06:59
Intake Total 960 / 960
Balance 960 / 960
Review of Systems
-
History Source: Patient
All other systems: Not reviewed unless documented
Data Reviewed
-
Total Time Spent with Patient (in minutes): 55
Diagnostic Radiology: Image personally visualized and interpreted and Report Reviewed by me
CT Scan: Image personally visualized and interpreted and Report Reviewed by me
Labs: Labs Reviewed by me
[2024-01-04] MEDS: DECADRON 2 MG PO ×2 (08:46→20:23)
--- NOTE | 2024-01-04 10:48 | W.PN.ONC2 ---
Today's Communication / Plan
-
PT--trial benadryl-- can d/c when safely ambulatory
Impression
Impression
recurrent dehydration/ hyponatremia with hx bilateral adrenal irradiation likely adrenal insufficiency
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
Plan
Plan
emphasized need to maintain replacement therapy and consider sedative hypnotic for sleep
check AM cortisol/DHEAS
followup in hospital
Subjective/Objective
Chief Complaint
marked improvement to baseline on oral dex-- weak though and nonambulatory
Subjective
Vital Signs:
Vital Signs
Temp Pulse Resp BP Pulse Ox
96.5 F L 78 14 101/58 100
01/04/24 04:02 01/04/24 07:54 01/04/24 07:54 01/03/24 23:30 01/04/24 07:54
Lab Results:
Laboratory Data
WBC 14.9 10^3/uL (4.8-10.8) H 01/04/24 04:33
Hgb 7.9 g/dL (12.0-16.0) L 01/04/24 04:33
Plt Count 247 10^3/uL (130-400) 01/04/24 04:33
eGFR > 60.00 01/04/24 04:33
Physical Exam
HEENT: Moist Mucous Membranes
Cardiology: Normal Sinus Rhythm
Pulmonary: Clear
GI: Normal Bowel Sounds
Neuro: Non Focal
Review of Systems
Review of Systems
unchanged
Orders
Orders
Orders From Last 24 Hours
01/04/24 04:33
Aldosterone, Serum [S] IN AM
Cortisol, Random IN AM
--- NOTE | 2024-01-04 11:06 | CM ---
met with patient and spouse/poa martha at [facility].patient very lethargic and had difficulty answering questions.patient lives with hr spouse in house with 4 [address],her bed and bath is on the second level with elevtor access,she amb with a walker and
needs A with her adl's.she has a walk in shower.her pcp is dr umanzor and she uses [facility] in [facility].patient had a vn after dc from hospital..she has never been to ip rehab.
patient with a past hx of asthma,lung ca with mets to adrenals with radiation is adm with lethargy and conusion.she is on po steroids,fluid restriction.plan home with hcs vs short term rehab.
[2024-01-04 15:35] VITALS: BP 105/69
[2024-01-04] MEDS: BENADRYL 25 MG PO (20:23)
[2024-01-04] MEDS: CRESTOR 10 MG PO (20:23)
[2024-01-04] MEDS: SYNTHROID 25 MCG PO (20:23)
[2024-01-04] MEDS: CLARITIN 10 MG PO (20:25)
[2024-01-04 23:08] VITALS: BP 106/62
[2024-01-05 04:48] LABS: Hematocrit 24.1 % (37.0-47.0); Hemoglobin 7.8 g/dL (12.0-16.0); Mean Corp Hgb Conc. 32.4 g/dL (33.0-37.0); Mean Corpuscular Hgb 26.1 pg (27.0-31.0); Mean Corpuscular Volume 80.6 fL (81.0-99.0); Mean Platelet Volume 9.4 fL (7.4-10.4); Platelet Count 254 10^3/uL (130-400); Red Blood Cell Count 2.99 10^6/uL (4.20-5.40); Red Cell Dist. Width 19.1 % (11.5-14.5); White Blood Cell Count 18.4 10^3/uL (4.8-10.8)
[2024-01-05 05:11] LABS: ALT (SGPT) 20 U/L (0-35); AST (SGOT) 18 U/L (14-36); Albumin 2.5 g/dl (3.5-5.0); Alkaline Phosphatase 183 U/L (38-126); Blood Urea Nitrogen 36 mg/dl (7-17); Carbon Dioxide 19 mmol/L (22-30); Chloride 106 mmol/L (98-107); Estimated Creatinine Clearance 59 ml/min; Glucose 121 mg/dl (70-99); Potassium 5.6 mmol/L (3.5-5.1); Sodium 134 mmol/L (135-145); Total Bilirubin 0.4 mg/dl (0.2-1.3); Total Protein 5.4 g/dl (6.3-8.2); eGFR > 60.00
[2024-01-05 06:00] VITALS: BMI 18.8
[2024-01-05 07:25] VITALS: BP 119/74
[2024-01-05] MEDS: DECADRON 2 MG PO (08:22)
[2024-01-05] MEDS: HEPARIN SC (08:24)
[2024-01-05] MEDS: STRIVERDI RESPIMAT 2 PUFF INH (08:31)
[2024-01-05] MEDS: SPIRIVA RESPIMAT 2.5 MCG 2 PUFF INH (08:31)
--- NOTE | 2024-01-05 09:56 | W.PN.ONC2 ---
Today's Communication / Plan
-
Okay for D/C home.
Transfusion arranged for 01/05 at [facility].
Plan is to proceed for treatment 01/06.
Impression
Impression
recurrent dehydration/ hyponatremia with hx bilateral adrenal irradiation likely adrenal insufficiency
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
Plan
Plan
We discussed the potential utility of medical marijuana in treating various symptoms and side effects associated with cancer and treatment.
Medical marijuana may be helpful in treating nausea and vomiting, anorexia, neuropathic pain, anxiety and insomnia.
Instructions provided for pt to sign up online.
Pt with known metastasis to colon and microcytic anemia. Has not had any treatment since 11/18. Suspect anemia is due to blood loss from metastasis.
Iron studies added on to today's lab work, will likely need IV iron in the office.
Pt set up for blood transfusion at [facility] 01/05. Type and screen to be drawn prior to d/c today.
Am cortisol was ordered for this morning, level will be followed up as outpt.
Subjective/Objective
Chief Complaint
Heme/Onco follow up of NSC lung cancer, change in mental status
Subjective
c/o poor appetite. c/o abdominal pain when she takes steroid in AM, increase in baseline insomnia when she takes steroid later in the day. Requesting medical marijuana certification.
Vital Signs:
Vital Signs
Temp Pulse Resp BP Pulse Ox
98.0 F 76 16 119/74 100
01/05/24 07:25 01/05/24 09:00 01/05/24 09:00 01/05/24 07:25 01/05/24 09:00
Lab Results:
Laboratory Data
WBC 18.4 10^3/uL (4.8-10.8) H 01/05/24 04:34
Hgb 7.8 g/dL (12.0-16.0) L 06/24/24 04:34
Plt Count 254 10^3/uL (130-400) 01/05/24 04:34
eGFR > 60.00 01/05/24 04:34
Physical Exam
Awake, alert, non-toxic appearing
HEENT: Moist Mucous Membranes; No Jaundice
Cardiology: Normal Sinus Rhythm, S1 and S2
Pulmonary: Clear
GI: Soft
Extremities: No C/C/E
Neuro: Non Focal
Review of Systems
Review of Systems
Constitutional: Reports Fatigue; Denies Fever
Head: Denies Sore Throat or Hearing Loss
Respiratory: Denies Dyspnea or Cough
Cardiovascular: Denies Chest Pain or Palpitations
Gastrointestinal: Denies Nausea/Vomiting or Diarrhea
Genitourinary: Denies Hematuria
Skin: Denies Rash or Pruritis
Neurological: Reports Other (confusion resolved); Denies Headache or Numbness
Psychiatric: Reports Insomnia; Denies Depression
Hem/Lymphatic: Denies Easy Bruising or Night Sweats
Orders
Orders
Orders From Last 24 Hours
01/05/24 06:00
Add On- LAB Routine
01/05/24 09:50
Type+Screen Urgent
--- NOTE | 2024-01-05 10:08 | W.PN.HOSP.TC ---
Addendum entered and electronically signed by Dimitris Deleon MD 01/05/24 13:06:
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
Original Note:
Today's Communication/Plan
-
dc to home
Assessment / Plan
Assessment / Plan
Lethargy
resolved
-most likely 2/2 to rapid discontinuation of dexamethasone v chemo/cancer related v less likely infection
-TFTs, cortisol WNL
� Follow-up aldosterone although now back on dexamethasone
-Continue dexamethasone - educated on not discontinuing by herself
-IVF stopped
-no evidence of infection at this time, no productive cough; tachypnea; resp symptoms, UTI symptoms
-F/u SARS-CoV-2, FLU negative
-PT/OT - input appreciated. Dramatic improvement past 48 hrs, pt and do not want SNF or VN
Leucocytosis - most likely leukemoid reaction vs less likely acute infection vs recent GCSF
-monitor fever curve, WBC
23.6-->14.9-->18.4
Acute hyponatremia
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
-fluid restriction
-ctm
Non-small cell metastatic lung CA
Colonic mass -biopsy con
-confirmed second to metastatic lung cancer
- f/u with Dr Espinosa, today at 1:15 PM
-discussed with Dr. Huff, pt to have T&S now and their office will arrange outpt transfusion
HX right upper extremity DVT
- appears not to be on anticoagulation at this point
Hypothyroidism
- on Levothyroxine
-free t4 wnl
Hyperlipidemia
- on ELECTRICAL ESTIMATOR Statin
DVT Ppx: HSQ
Code: full
dc to home
appt at 1:15 with Onc
deaccess port
reviewed with in and out of room
reviewed with Dr. Huff
extensive visit
More than 30 minutes spent in discharge including
Final examination of the patient
Summarizing hospital stay
Instructions for continuing care to all relevant caregivers
Preparation of discharge records, prescriptions, and referral forms
Total time spent (in minutes): 45
Anticipated Discharge: Today
Subjective/Interval History
-
Date of Service: January 05, 2024
Anxiously awaiting dc, feels much better
Objective Data
-
Labs:
Laboratory Results
01/05/24
04:34
WBC 18.4 H
Hgb 7.8 L
Hct 24.1 L
Plt Count 254
Sodium 134 L
Potassium 5.6 H
Chloride 106
Carbon Dioxide 19 L
BUN 36 H
Creatinine 0.6
Glucose 121 H
Calcium 9.0
Total Bilirubin 0.4
AST 18
ALT 20
Alkaline Phosphatase 183 H
Vital Signs:
Vital Signs
Temp Pulse Resp BP Pulse Ox
98.0 F 76 16 119/74 100
01/05/24 07:25 01/05/24 09:00 01/05/24 09:00 01/05/24 07:25 01/05/24 09:00
I&O
01/04/24 01/05/24 01/06/24
06:59 06:59 06:59
Intake Total 960 / 960 1200 / 1200
Balance 960 / 960 1200 / 1200
Review of Systems
-
History Source: Patient and Family ( at bedside)
Constitutional: Denies Fever
EENT: Reports No Symptoms Reported
Respiratory: Reports No Symptoms
Cardiac: Reports No Symptoms
Abdomen/GI: Reports No Symptoms
Musculoskeletal: Reports No Symptoms
Physical Exam
-
General: Well Developed, Well Nourished and No Apparent Distress
HEENT: Normocephalic, Atraumatic and Moist Mucous Membranes
Respiratory: Clear to Auscultation; Negative Wheezes, Rales or Rhonchi
Cardiac: Regular Rhythm and S1/S2
GI: Soft, Nontender and Nondistended
Musculoskeletal: No Clubbing, No Cyanosis and No Edema
Neuro: Awake, Alert and Oriented
[2024-01-05 10:27] LABS: Total Iron Binding Capacity 171 ug/dl (265-497)
--- NOTE | 2024-01-05 11:00 | PTCARENOTE ---
pt SQ port deassessed by IV team after drawing type+screen. pt is aaox3 with at bedside. pt discharged home and has OP appointment later this afternoon. this nurse discussed discharge instructions with patient and her at bedside.
--- NOTE | 2024-01-05 11:17 | PN.CDI ---
CDI
- -
CDI:
Physician Documentation Request
Admit Date: 01/03/24 04:15
Dear Doctor Adrienne,
Patient admitted with lethargy.
01/04 Oncology PN: 'c/o poor appetite. c/o abdominal pain when she takes steroid in AM, increase in baseline insomnia when she takes steroid later in the day. Requesting medical marijuana certification.'
Clinical Indicators:
Height: 5' 3'
Weight:106 lbs
BMI:18.8
If possible, please provide an associated diagnosis related to the abnormal BMI, such as:
Underweight
Cachectic
Abnormal BMI is not significant
Other
BMI < or = to 19.9
Underweight
Weight Loss
Cachectic
Anorexia
Use of terms such as suspected, likely, concern for, or probable (associated with a specific diagnosis that is being evaluated, monitored, or treated as if it exists) are acceptable and can be coded in the inpatient setting, when documented at the
time of discharge.
Thank you,
Liliya Foreman RN, BSN
CDI Specialist
Available via [employer] text
Please use your independent medical judgment in providing your response.
[2024-01-05 12:12] LABS: Iron 48 ug/dl (37-170); Percent Saturation 28 % (20-50)
--- NOTE | 2024-01-05 13:09 | W.DS.TRANS ---
DC Summary - [employer]
-
Discharge Instructions:
Discharge Diagnosis/Procedures Non small cell metastatic lung cancer
Diet Regular
Activity With assistance
Driving Restrictions No driving
Bathing Restrictions None
Blood Work CBC, BMP in 1 week
Instructions:
Stand-Alone Forms:
Changes to Home Medications: Yes
Discharge Medications:
DC Medications w/original date entered in [employer]
rosuvastatin 10 mg tablet 10 mg PO HS High Cholesterol 02/12/22
umeclidinium 62.5 mcg-vilanterol 25 mcg/actuation powdr for inhalation (Anoro Ellipta) 1 inh inhalation R DAILY Lung/Breathing Issues 07/01/22
cholecalciferol (vitamin D3) 50 mcg (2,000 unit) capsule (Vitamin D3) 50 mcg PO HS Supplement 11/11/22
loratadine 10 mg tablet (Claritin) 10 mg PO HS Allergies 11/11/22
Gemzar + Carboplatin 1 dose IV Q3W Cancer 08/25/23
levothyroxine 25 mcg tablet 25 mcg PO HS Thyroid 08/25/23
melatonin 5 mg tablet 5 mg PO HS insomnia 08/25/23
CoQ-10 1 cap PO HS 09/01/23
Lactobac no.2-Bifidobac no.1-S. thermo 112.5 billion cell capsule (Visbiome) 1 cap PO HS 09/01/23
docusate sodium 100 mg capsule (Stool Softener) 100 mg PO HSPRN PRN constipation 09/01/23
gemcitabine 1 dose IV Q4W 09/01/23
ibuprofen 125 mg-acetaminophen 250 mg tablet (Advil Dual Action) 1 tab PO Q8H PRN pain 12/02/23
dexamethasone 2 mg tablet 2 mg PO BID 01/03/24
diphenhydramine HCl 25 mg capsule 25 mg PO HSPRN PRN insomnia #0 caps 01/05/24
famotidine 20 mg tablet (Pepcid) 20 mg PO DAILY stomach #90 tabs 01/05/24
Home Medication Changes
Pepcid added t take in the morning and
Benadryl added to take if needed for sleep
Pending Results: No
[2024-01-05 23:34] LABS: Aldosterone, Serum 5.5 ng/dL
== END 2024-01-05 10:58 | disposition home health service (06) | DRG 181 ==
LOC: 2 NORTH 04:15
PROVIDERS: Clinical Nurse Specialist Family Health; Emergency Medicine; Internal Medicine; ADMITTING PHYSICIAN Internal Medicine; ATTENDING PHYSICIAN Internal Medicine; CONSULT PHYSICIAN Internal Medicine Hematology & Oncology; EMERGENCY PHYSICIAN Emergency Medicine
DX: C34.91 Malignant neoplasm of unspecified part of right bronchus or lung (principal); C78.5 Secondary malignant neoplasm of large intestine and rectum; G93.49 Other encephalopathy; E22.2 Syndrome of inappropriate secretion of antidiuretic hormone; R64 Cachexia; Z68.1 Body mass index [BMI] 19.9 or less, adult; E27.40 Unspecified adrenocortical insufficiency; D50.9 Iron deficiency anemia, unspecified; D63.0 Anemia in neoplastic disease; E03.9 Hypothyroidism, unspecified; J45.909 Unspecified asthma, uncomplicated; E86.0 Dehydration; D72.829 Elevated white blood cell count, unspecified; E78.5 Hyperlipidemia, unspecified; Z79.52 Long term (current) use of systemic steroids; Z79.890 Hormone replacement therapy; Z79.899 Other long term (current) drug therapy; Z86.718 Personal history of other venous thrombosis and embolism; Z87.19 Personal history of other diseases of the digestive system; Z92.3 Personal history of irradiation; Z11.52 Encounter for screening for COVID-19
CPT/HCPCS: 70450; 71046; 80053; 81003; 82088; 82533; 82728; 83540; 83550; 83605; 84439; 84443; 85025; 85027; 87040; 87502; 87811; 93005; 94640; 94760; 96361; 96374; 97162; 99285

== ENCOUNTER 2024-01-06 10:04 | Outpatient (RCR) | payer MEDICARE, BC, SELFPAY ==
[2024-01-06 10:34] VITALS: BP 124/65
[2024-01-06 11:44] VITALS: BP 124/65
[2024-01-06 12:05] VITALS: BP 106/55
[2024-01-06 13:52] VITALS: BP 105/54
[2024-01-07 13:57] LABS: % Basophils 0.1 % (0-2); % Eosinophils 0.2 % (0-6); % Immature Granulocytes 0.6 % (0-0.5); % Lymphocytes 4.3 % (20.5-51.1); % Monocytes 6.9 % (1.7-9.3); % Neutrophils 87.9 % (42.2-75.2); Absolute Immature Granulocytes 0.1 10^3/uL (0-0.05); Absolute Lymphocytes 0.7 10^3/uL (1.2-3.4); Absolute Monocytes 1.1 10^3/uL (0.1-0.6); Absolute Neutrophils 13.6 10^3/uL (1.4-6.5); Hematocrit 31.8 % (37.0-47.0); Mean Corp Hgb Conc. 32.4 g/dL (33.0-37.0); Mean Corpuscular Hgb 26.6 pg (27.0-31.0); Mean Corpuscular Volume 82.2 fL (81.0-99.0); Mean Platelet Volume 9.5 fL (7.4-10.4); Platelet Count 229 10^3/uL (130-400); Red Blood Cell Count 3.87 10^6/uL (4.20-5.40); Red Cell Dist. Width 18.3 % (11.5-14.5); White Blood Cell Count 15.4 10^3/uL (4.8-10.8)
[2024-01-07 13:58] LABS: Hemoglobin 10.3 g/dL (12.0-16.0)
== END 2024-01-11 23:59 | disposition home or self-care (01) ==
LOC: OID 10:04
PROVIDERS: ATTENDING PHYSICIAN Internal Medicine Hematology & Oncology; FAMILY PHYSICIAN Family Medicine
DX: C34.11 Malignant neoplasm of upper lobe, right bronchus or lung (principal); D64.81 Anemia due to antineoplastic chemotherapy; I80.8 Phlebitis and thrombophlebitis of other sites; R53.83 Other fatigue; E27.9 Disorder of adrenal gland, unspecified
CPT/HCPCS: 36415; 36430; 85025; 86850; 86900; 86901; 86920; P9016

== ENCOUNTER → 2024-01-13 09:57 | Outpatient (REF) | payer MEDICARE, BC, SELFPAY ==
[2024-01-13 11:43] LABS: % Basophils 0.1 % (0-2); % Immature Granulocytes 0.6 % (0-0.5); % Lymphocytes 4.1 % (20.5-51.1); % Monocytes 2.6 % (1.7-9.3); % Neutrophils 92.6 % (42.2-75.2); Absolute Immature Granulocytes 0.1 10^3/uL (0-0.05); Absolute Lymphocytes 0.5 10^3/uL (1.2-3.4); Absolute Monocytes 0.3 10^3/uL (0.1-0.6); Hematocrit 28.1 % (37.0-47.0); Hemoglobin 9.2 g/dL (12.0-16.0); Mean Corp Hgb Conc. 32.7 g/dL (33.0-37.0); Mean Corpuscular Hgb 26.4 pg (27.0-31.0); Mean Corpuscular Volume 80.5 fL (81.0-99.0); Nucleated Red Blood Cells % 0 %; Red Blood Cell Count 3.49 10^6/uL (4.20-5.40); Red Cell Dist. Width 18.6 % (11.5-14.5); White Blood Cell Count 11.8 10^3/uL (4.8-10.8)
[2024-01-13 12:17] LABS: ALT (SGPT) 26 U/L (0-35); AST (SGOT) 25 U/L (14-36); Albumin 3.2 g/dl (3.5-5.0); Alkaline Phosphatase 203 U/L (38-126); Blood Urea Nitrogen 42 mg/dl (7-17); Calcium 9.1 mg/dl (8.4-10.2); Carbon Dioxide 22 mmol/L (22-30); Chloride 97 mmol/L (98-107); Glucose 175 mg/dl (70-99); Potassium 4.8 mmol/L (3.5-5.1); Sodium 132 mmol/L (135-145); Total Bilirubin 0.6 mg/dl (0.2-1.3); Total Protein 6.1 g/dl (6.3-8.2); eGFR 57.66
[2024-01-13 12:30] LABS: Mean Platelet Volume 11.2 fL (7.4-10.4); Platelet Count 100 10^3/uL (130-400)
[2024-01-13 12:49] LABS: TSH Reflex To Free T4 1.82 uIU/ml (0.47-4.68)
== END ==
LOC: REG 09:57
PROVIDERS: ATTENDING PHYSICIAN Internal Medicine Hematology & Oncology; FAMILY PHYSICIAN Family Medicine
DX: C34.11 Malignant neoplasm of upper lobe, right bronchus or lung (principal); I80.8 Phlebitis and thrombophlebitis of other sites; D64.81 Anemia due to antineoplastic chemotherapy; R53.83 Other fatigue; E27.9 Disorder of adrenal gland, unspecified; R53.82 Chronic fatigue, unspecified
CPT/HCPCS: 36415; 80053; 84443; 85025

== ENCOUNTER → 2024-01-19 13:16 | Outpatient (REF) | payer MEDICARE, BC, SELFPAY ==
[2024-01-19 14:38] LABS: % Basophils 0.1 % (0-2); % Immature Granulocytes 0.7 % (0-0.5); % Lymphocytes 3.3 % (20.5-51.1); % Monocytes 4.8 % (1.7-9.3); % Neutrophils 91.1 % (42.2-75.2); Absolute Immature Granulocytes 0.1 10^3/uL (0-0.05); Absolute Lymphocytes 0.4 10^3/uL (1.2-3.4); Absolute Monocytes 0.5 10^3/uL (0.1-0.6); Absolute Neutrophils 10.2 10^3/uL (1.4-6.5); Hematocrit 23.7 % (37.0-47.0); Hemoglobin 7.5 g/dL (12.0-16.0); Mean Corp Hgb Conc. 31.6 g/dL (33.0-37.0); Mean Corpuscular Hgb 25.5 pg (27.0-31.0); Mean Corpuscular Volume 80.6 fL (81.0-99.0); Mean Platelet Volume 11.2 fL (7.4-10.4); Nucleated Red Blood Cells % 0 %; Red Blood Cell Count 2.94 10^6/uL (4.20-5.40); Red Cell Dist. Width 19.2 % (11.5-14.5); White Blood Cell Count 11.2 10^3/uL (4.8-10.8)
[2024-01-19 15:15] LABS: ALT (SGPT) 27 U/L (0-35); AST (SGOT) 18 U/L (14-36); Albumin 2.9 g/dl (3.5-5.0); Alkaline Phosphatase 186 U/L (38-126); Blood Urea Nitrogen 34 mg/dl (7-17); Calcium 8.8 mg/dl (8.4-10.2); Carbon Dioxide 20 mmol/L (22-30); Chloride 100 mmol/L (98-107); Glucose 114 mg/dl (70-99); Potassium 4.5 mmol/L (3.5-5.1); Sodium 131 mmol/L (135-145); Total Bilirubin 0.5 mg/dl (0.2-1.3); Total Protein 5.7 g/dl (6.3-8.2); eGFR > 60.00
[2024-01-19 15:32] LABS: TSH Reflex To Free T4 1.69 uIU/ml (0.47-4.68)
[2024-01-19 16:11] LABS: Platelet Count 55 10^3/uL (130-400)
== END ==
LOC: REG 13:16
PROVIDERS: ATTENDING PHYSICIAN Internal Medicine Hematology & Oncology; FAMILY PHYSICIAN Family Medicine
DX: C34.11 Malignant neoplasm of upper lobe, right bronchus or lung (principal); I80.8 Phlebitis and thrombophlebitis of other sites; D64.81 Anemia due to antineoplastic chemotherapy; R53.83 Other fatigue; E27.9 Disorder of adrenal gland, unspecified; R53.82 Chronic fatigue, unspecified
CPT/HCPCS: 36415; 80053; 84443; 85025

== ENCOUNTER 2024-01-21 08:37 | Outpatient (RCR) | payer MEDICARE, BC, SELFPAY ==
[2024-01-21] VITALS (7 sets, daily range): BP systolic 113–127; BP diastolic 51–59
== END 2024-02-11 23:59 | disposition home or self-care (01) ==
LOC: OID 08:37
PROVIDERS: ATTENDING PHYSICIAN Internal Medicine Hematology & Oncology; FAMILY PHYSICIAN Family Medicine
DX: C34.11 Malignant neoplasm of upper lobe, right bronchus or lung (principal); D64.81 Anemia due to antineoplastic chemotherapy; I80.8 Phlebitis and thrombophlebitis of other sites; R53.83 Other fatigue; E27.9 Disorder of adrenal gland, unspecified
CPT/HCPCS: 36430; 86850; 86900; 86901; 86920; P9016

== ENCOUNTER → 2024-01-27 13:38 | Outpatient (REF) | payer MEDICARE, BC, SELFPAY ==
[2024-01-27 15:11] LABS: % Basophils 0.1 % (0-2); % Immature Granulocytes 3.7 % (0-0.5); % Lymphocytes 2.1 % (20.5-51.1); % Monocytes 12.1 % (1.7-9.3); Absolute Immature Granulocytes 0.8 10^3/uL (0-0.05); Absolute Lymphocytes 0.5 10^3/uL (1.2-3.4); Absolute Monocytes 2.6 10^3/uL (0.1-0.6); Hematocrit 33.2 % (37.0-47.0); Hemoglobin 10.9 g/dL (12.0-16.0); Mean Corp Hgb Conc. 32.8 g/dL (33.0-37.0); Mean Corpuscular Hgb 27.4 pg (27.0-31.0); Mean Corpuscular Volume 83.4 fL (81.0-99.0); Nucleated Red Blood Cells % 0.3 %; Platelet Count 236 10^3/uL (130-400); Red Blood Cell Count 3.98 10^6/uL (4.20-5.40); Red Cell Dist. Width 18.6 % (11.5-14.5); White Blood Cell Count 21.9 10^3/uL (4.8-10.8)
[2024-01-27 15:19] LABS: ALT (SGPT) 49 U/L (0-35); AST (SGOT) 29 U/L (14-36); Albumin 2.8 g/dl (3.5-5.0); Alkaline Phosphatase 306 U/L (38-126); Blood Urea Nitrogen 27 mg/dl (7-17); Calcium 9.2 mg/dl (8.4-10.2); Carbon Dioxide 21 mmol/L (22-30); Chloride 100 mmol/L (98-107); Glucose 94 mg/dl (70-99); Potassium 5.3 mmol/L (3.5-5.1); Sodium 133 mmol/L (135-145); Total Bilirubin 0.5 mg/dl (0.2-1.3); Total Protein 5.8 g/dl (6.3-8.2); eGFR > 60.00
[2024-01-27 15:56] LABS: TSH Reflex To Free T4 2.91 uIU/ml (0.47-4.68)
== END ==
LOC: REG 13:38
PROVIDERS: ATTENDING PHYSICIAN Internal Medicine Hematology & Oncology; FAMILY PHYSICIAN Family Medicine
DX: C34.11 Malignant neoplasm of upper lobe, right bronchus or lung (principal); I80.8 Phlebitis and thrombophlebitis of other sites; D64.81 Anemia due to antineoplastic chemotherapy; R53.83 Other fatigue; E27.9 Disorder of adrenal gland, unspecified
CPT/HCPCS: 36415; 80053; 84443; 85025

== ENCOUNTER → 2024-02-04 14:20 | Outpatient (REF) | payer MEDICARE, BC, SELFPAY ==
[2024-02-04 14:51] LABS: % Immature Granulocytes 1.5 % (0-0.5); % Lymphocytes 1.4 % (20.5-51.1); % Monocytes 5.4 % (1.7-9.3); % Neutrophils 91.7 % (42.2-75.2); Absolute Immature Granulocytes 0.6 10^3/uL (0-0.05); Absolute Lymphocytes 0.6 10^3/uL (1.2-3.4); Absolute Monocytes 2.3 10^3/uL (0.1-0.6); Absolute Neutrophils 38.9 10^3/uL (1.4-6.5); Hematocrit 33.1 % (37.0-47.0); Hemoglobin 10.5 g/dL (12.0-16.0); Mean Corp Hgb Conc. 31.7 g/dL (33.0-37.0); Mean Corpuscular Hgb 25.9 pg (27.0-31.0); Mean Corpuscular Volume 81.7 fL (81.0-99.0); Mean Platelet Volume 8.9 fL (7.4-10.4); Platelet Count 243 10^3/uL (130-400); Red Blood Cell Count 4.05 10^6/uL (4.20-5.40); Red Cell Dist. Width 18.6 % (11.5-14.5)
[2024-02-04 14:54] LABS: White Blood Cell Count 42.5 10^3/uL (4.8-10.8)
[2024-02-04 15:57] LABS: ALT (SGPT) 33 U/L (0-35); AST (SGOT) 29 U/L (14-36); Albumin 2.9 g/dl (3.5-5.0); Alkaline Phosphatase 319 U/L (38-126); Blood Urea Nitrogen 38 mg/dl (7-17); Carbon Dioxide 22 mmol/L (22-30); Chloride 94 mmol/L (98-107); Direct Bilirubin 0.3 mg/dl (0.0-0.4); Glucose 126 mg/dl (70-99); Phosphorus 4.2 mg/dl (2.5-4.5); Potassium 4.9 mmol/L (3.5-5.1); Sodium 129 mmol/L (135-145); Total Bilirubin 0.5 mg/dl (0.2-1.3); Total Protein 5.8 g/dl (6.3-8.2); eGFR > 60.00
== END ==
LOC: OIDL 14:20
PROVIDERS: ATTENDING PHYSICIAN Internal Medicine Hematology & Oncology
DX: C34.11 Malignant neoplasm of upper lobe, right bronchus or lung (principal)
CPT/HCPCS: 80053; 80076; 84100; 85025

== ENCOUNTER 2024-02-10 11:36 | Inpatient (IN) | payer MEDICARE, BC, SELFPAY ==
[2024-02-09 18:26] VITALS: BP 118/74
[2024-02-09 18:28] VITALS: BP 118/74; BMI 19.3
[2024-02-09 19:00] VITALS: BP 88/65
--- NOTE | 2024-02-09 19:30 | ED.GENMED ---
History of Present Illness
General
Chief Complaint: Weakness
Source: patient
Exam Limitations: none
Time Seen by Provider: 02/09/24 18:55
Nursing documentation reviewed up to this point in time: agreed with
History of Present Illness
History of Present Illness:
Patient to ED with report of weakness. History of Lung CA, receiveing chemo every 3 weeks. SHe is due this week for next chemo. Denies fever/chills. Reports that she is eating but drinking less. Brought to ED by family for eval. Denies
fever/chiklls, n/v/d. No other complaints
Past History
Past History
ED Past Medical History: Cancer (Lung with mets to Colon), COPD, Hypercholesterolemia, Hypothyroidism and Other (memory loss, DVT, GI bleeding, Reynauds)
ED Past Surgical History: None and Other (Cataracts)
Social History
Tobacco: Former smoker
Alcohol: Occasional
Drug: None
Personal:
Living: with family
Review of Systems
Review of Systems
Allergies reviewed?: Yes
All Other Systems: ROS reviewed and negative except as documented in HPI and ROS
Constitutional: Reports no symptoms
EENT: Reports no symptoms
Respiratory: Reports no symptoms
Cardiac: Reports no symptoms
ABD/GI: Reports no symptoms
: Reports no symptoms
Musculoskeletal: Reports no symptoms
Skin: Reports no symptoms
Neurological: Reports weakness
Psychiatric: Reports no symptoms
Phy Exam
General Physical Exam
General Presentation: mild distress
General age: appears stated age
General Skin: warm and dry
General Habitus: normal
General Mental: alert
Cardiovascular Exam
Cardiovascular Exam: regular rate/rhythm
Pulmonary Exam
Pulmonary Exam: lungs clear and no respiratory distress
Gastrointestinal Exam
Gastrointestinal Exam: normal bowel sounds, non tender, soft, no organomegaly, non distended and no cva tenderness
Rectal Exam: normal external exam and normal sphincter tone
Stool: brown
Guaiac Status: positive
Musculoskeletal Exam
Musculoskeletal Exam: full ROM and neuro vasc intact
Skin Exam
Skin Exam: normal color, warm/dry and no rash
Psychiatric Exam
Psychiatric Exam: normal mood/affect
Course
Orders/Labs/Results
Orders:
Orders
02/09/24 19:03
0.9% Sodium Chloride 1000 ml [Nss] 1,000 ml IV BOLUS
02/09/24 19:35
Complete Blood Count/With Diff Urgent
Comprehensive Metabolic Panel Urgent
02/09/24 20:37
0.9% Sodium Chloride 1000 ml [Nss] 1,000 ml IV BOLUS
02/09/24 21:08
Urinalysis Reflex To Culture Urgent
Date Specimen was Collected: 02/09/24
Time Specimen was Collected: 21:08
02/09/24 21:37
Pantoprazole [Protonix IV] 40 mg IV NOW STA
Abnormal Lab Results
02/09/24
19:35
WBC 37.4 H 10^3/uL
(4.8-10.8)
RBC 3.47 L 10^6/uL
(4.20-5.40)
Hgb 8.9 L g/dL
(12.0-16.0)
Hct 26.6 L %
(37.0-47.0)
MCV 76.7 L fL
(81.0-99.0)
MCH 25.6 L pg
(27.0-31.0)
RDW 18.8 H %
(11.5-14.5)
Abs Immat Gran (auto) 0.5 H 10^3/uL
(0-0.05)
Absolute Neuts (auto) 34.2 H 10^3/uL
(1.4-6.5)
Absolute Lymphs (auto) 0.5 L 10^3/uL
(1.2-3.4)
Absolute Monos (auto) 2.2 H 10^3/uL
(0.1-0.6)
Immature Gran % 1.3 H %
(0-0.5)
Neutrophils % 91.4 H %
(42.2-75.2)
Lymphocytes % 1.3 L %
(20.5-51.1)
Sodium 126 L mmol/L
(135-145)
Chloride 94 L mmol/L
(98-107)
BUN 40 H mg/dl
(7-17)
Glucose 126 H mg/dl
(70-99)
ALT 40 H U/L
(0-35)
Alkaline Phosphatase 498 H U/L
(38-126)
Total Protein 5.6 L g/dl
(6.3-8.2)
Albumin 2.6 L g/dl
(3.5-5.0)
02/09/24 19:35
02/09/24 19:35
Vital Signs
Initial and Last Documented VS:
Initial Vital Signs
Pulse Resp Pulse Ox
104 25 99
02/09/24 18:25 02/09/24 18:25 02/09/24 18:25
Last Documented Vital Signs
Temp Pulse Resp BP Pulse Ox
98.7 F 103 29 92/60 98
02/09/24 18:28 02/09/24 19:50 02/09/24 19:50 02/09/24 19:50 02/09/24 19:45
Update Note
Update Note:
Patient to ED with complaint of increasing weakness. Receiving treatment for metastatic lung CA. Family states she is due to start a new medication on Th. Labs reviewed. Hgb 8.9. Was 10.5 last week. Complains of dizziness and weakness.
Hypotensive, tachycardic. Will admit.
ED Attending Note
-
Portions of this chart may have been created with voice recognition software.� Occasional wrong word or��sound alike� substitutions may have occurred due to the inherent limitations of voice recognition software.
Discharge Plan
Departure
Prescriptions:
No Action
rosuvastatin 10 mg Tablet
10 mg PO HS
Anoro Ellipta 62.5-25 mcg/actuation Blister With Device
1 inh INHALATION R DAILY
loratadine [Claritin] 10 mg Tablet
10 mg PO HS
cholecalciferol (vitamin D3) [Vitamin D3] 50 mcg (2,000 unit) Capsule
50 mcg PO HS
levothyroxine 25 mcg tablet
25 mcg PO HS
melatonin 5 mg Tablet
5 mg PO HS
Gemzar + Carboplatin
1 dose IV Q3W
Patient Comments:
Pt unsure of date of last dose (12/01/22); unsure of last dose, states last chemo was ~4 weeks ago
docusate sodium [Stool Softener] 100 mg Capsule
100 mg PO HSPRN PRN (Reason: constipation)
Visbiome 112.5 billion cell Capsule
1 cap PO HS
CoQ-10
1 cap PO HS
ibuprofen-acetaminophen [Advil Dual Action] 125-250 mg Tablet
1 tab PO Q8H PRN (Reason: pain)
dexamethasone 2 mg Tablet
2 mg PO BID
diphenhydramine HCl 25 mg Capsule
25 mg PO HSPRN PRN (Reason: insomnia) Qty: 0 0RF
famotidine [Pepcid] 20 mg tablet
20 mg PO DAILY Qty: 90 0RF
Referrals:
Margaret Diaz DO [Family Provider] -
Interventions
Interventions:
*Risk Screen - Suicide Last Done: 02/09/24 18:26
*General Assessment Last Done: 02/09/24 18:26
*Neglect/Abuse Screening Last Done: 02/09/24 18:26
ED- Fall Risk Assessment Last Done: 02/09/24 18:27
*ED COVID-19 Vaccine History Last Done: 02/09/24 18:26
ED- Cardiac Assessment Last Done: 02/09/24 18:48
ED- Neurological Assessment Last Done: 02/09/24 18:48
ED- Pulmonary Assessment Last Done: 02/09/24 18:48
Discharge Date and Time
Print Language: THAI
[2024-02-09] MEDS: NSS 1000 IV ×2 (19:44→21:42)
[2024-02-09 19:50] VITALS: BP 92/60
[2024-02-09 19:57] LABS: Hematocrit 26.6 % (37.0-47.0); Hemoglobin 8.9 g/dL (12.0-16.0); Mean Corp Hgb Conc. 33.5 g/dL (33.0-37.0); Mean Corpuscular Hgb 25.6 pg (27.0-31.0); Mean Corpuscular Volume 76.7 fL (81.0-99.0); Mean Platelet Volume 9.2 fL (7.4-10.4); Platelet Count 202 10^3/uL (130-400); Red Blood Cell Count 3.47 10^6/uL (4.20-5.40); Red Cell Dist. Width 18.8 % (11.5-14.5); White Blood Cell Count 37.4 10^3/uL (4.8-10.8)
[2024-02-09 20:00] VITALS: BP 89/55
[2024-02-09 20:13] LABS: % Basophils 0.2 % (0-2); % Immature Granulocytes 1.3 % (0-0.5); % Lymphocytes 1.3 % (20.5-51.1); % Monocytes 5.8 % (1.7-9.3); % Neutrophils 91.4 % (42.2-75.2); Absolute Basophils 0.1 10^3/uL (0-0.2); Absolute Immature Granulocytes 0.5 10^3/uL (0-0.05); Absolute Lymphocytes 0.5 10^3/uL (1.2-3.4); Absolute Monocytes 2.2 10^3/uL (0.1-0.6); Absolute Neutrophils 34.2 10^3/uL (1.4-6.5); Nucleated Red Blood Cells % 0 %
[2024-02-09 20:19] LABS: ALT (SGPT) 40 U/L (0-35); AST (SGOT) 35 U/L (14-36); Albumin 2.6 g/dl (3.5-5.0); Alkaline Phosphatase 498 U/L (38-126); Blood Urea Nitrogen 40 mg/dl (7-17); Calcium 8.9 mg/dl (8.4-10.2); Carbon Dioxide 23 mmol/L (22-30); Chloride 94 mmol/L (98-107); Estimated Creatinine Clearance 45 ml/min; Glucose 126 mg/dl (70-99); Potassium 4.8 mmol/L (3.5-5.1); Sodium 126 mmol/L (135-145); Total Bilirubin 0.9 mg/dl (0.2-1.3); Total Protein 5.6 g/dl (6.3-8.2); eGFR > 60.00
[2024-02-09 21:21] LABS: Urine Albumin Trace (Neg - Trace); Urine Bilirubin Negative (Negative); Urine Character Clear (Clear); Urine Color Yellow; Urine Glucose Negative (Negative); Urine Ketone Negative (Negative); Urine Leukocyte Negative (Negative); Urine Nitrite Negative (Negative); Urine Occult Blood Negative (Negative); Urine Urobilinogen Negative (Neg - 1+)
[2024-02-09] MEDS: PROTONIX IV 40 MG IV (21:42)
--- NOTE | 2024-02-09 22:40 | HPS.HSE ---
Family Physician
-
Family Physician: Margaret Diaz
Chief Complaint
-
fatigue, dizziness
History of Present Illness
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
dizziness and weakness since she received chemotherapy 3 weeks ago. Denies fevers or chills.
She has a history of anemia for which she periodically receives blood transfusions last received 2 weeks ago. Patient states that she has seen colorectal here at [facility] previously but as per record she was seen by GI in August at which time
EGD and colonoscopy not recommended. Her oncologist is Dr. Rodriguez.
She denies any blood in the stool or black stool or change in her bowel movements. She denies any cough, sore throat or runny nose, shortness of breath, chest pain, urinary symptoms.
She denies smoking. She drinks alcohol occasionally.
Medical History
Past Medical History
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
Past Surgical History: Reports Other (Cataracts))
Social History
Tobacco: Non-smoker
Alcohol: Occasional
Drug: None
Family History
Family History: Not pertinent
Allergies / Home Medications
Allergies reflects when Allergies were last updated in [facility].
Home Medications with original date entered in [facility]
Allergy/Medication List:
Allergies
Allergy/AdvReac Type Severity Reaction Status Date / Time
cat dander Allergy Unknown Unknown Verified 01/06/24 11:02
seasonal Allergy Unknown Uncoded 01/06/24 11:02
Home Medications
rosuvastatin 10 mg tablet 10 mg PO HS High Cholesterol 02/12/22
umeclidinium 62.5 mcg-vilanterol 25 mcg/actuation powdr for inhalation (Anoro Ellipta) 1 inh inhalation R DAILY Lung/Breathing Issues 07/01/22
cholecalciferol (vitamin D3) 50 mcg (2,000 unit) capsule (Vitamin D3) 50 mcg PO HS Supplement 11/11/22
levothyroxine 25 mcg tablet 25 mcg PO HS Thyroid 08/25/23
Lactobac no.2-Bifidobac no.1-S. thermo 112.5 billion cell capsule (Visbiome) 1 cap PO HS 09/01/23
docusate sodium 100 mg capsule (Stool Softener) 100 mg PO HSPRN PRN constipation 09/01/23
ibuprofen 125 mg-acetaminophen 250 mg tablet (Advil Dual Action) 1 tab PO Q8HPRN PRN mild pain 12/02/23
dexamethasone 2 mg tablet 2 mg PO BID 01/03/24
coenzyme Q10 100 mg capsule (CoQ-10) 100 mg PO HS 02/09/24
diphenhydramine HCl 25 mg capsule 50 mg PO HS 02/09/24
Review of Systems
-
History Source: Patient
A 12 point ROS was completed and negative except as noted: Yes
Constitutional: Reports No Symptoms
EENT: Reports No Symptoms
Respiratory: Reports No Symptoms
Cardiac: Reports No Symptoms
Abdomen/GI: Reports No Symptoms
: Reports No Symptoms
Musculoskeletal: Reports No Symptoms
Skin: Reports No Symptoms
Neurological: Reports No Symptoms
Endocrine: Reports No Symptoms
Hematologic/Lymphatic: Reports No Symptoms
Psych: Reports No Symptoms
Physical Exam
Vital Signs
Vital Signs
Temp Pulse Resp BP Pulse Ox
98.7 F 103 29 92/60 98
02/09/24 18:28 02/09/24 19:50 02/09/24 19:50 02/09/24 19:50 02/09/24 19:45
Physical Exam
General: Well Developed, Well Nourished and No Apparent Distress
HEENT: NormoCephalic, Moist mucous membranes and Atraumatic
Respiratory: Clear
Cardiac: S1/S2 and Regular Rhythm; No Murmur or Rub
GI: Soft, Non Tender, Non Distended and Normal Bowel Sounds; No Organomegaly
Rectal: Deferred by Provider
Musculoskeletal: No Clubbing, No Cyanosis and No Edema
Skin: No Rash
Neuro: Nonfocal/grossly intact
Laboratory Results
-
02/09/24 19:35
02/09/24 19:35
Laboratory Results
Total Bilirubin 0.9 mg/dl (0.2-1.3) 02/09/24 19:35
AST 35 U/L (14-36) 02/09/24 19:35
ALT 40 U/L (0-35) H 02/09/24 19:35
Alkaline Phosphatase 498 U/L (38-126) H 02/09/24 19:35
Data Reviewed
-
Lab Data: Labs Reviewed by me
Old Records: Reviewed
Impression/Plan
-
IMPRESSION:
PLAN:
# Fatigue likely multifactorial from slightly worsening anemia, worsening hyponatremia, deconditioning from chemotherapy
-See individually below
# Chronic microcytic anemia occasionally transfusion requiring likely due to chronic blood loss from colonic metastasis
-Hemoglobin 8.9 from 10.5
-Rectal exam showed brown stool which was heme positive
-Check iron studies, B12, folate
-patient was seen by GI in August of this year at which time she was anemic with hemoglobin 4.5 and there is no role for colonoscopy/EGD at that time
-Regular diet
-Consider oncology consult
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
-Sodium of 126 from baseline around 130
-Check urine sodium, osmolality
-IV fluids given
-40 ounce fluid restriction
Leukocytosis secondary to chronic steroids
-Continue to monitor
Non-small cell metastatic lung cancer with metastases to colon/adrenal gland
-On chemotherapy
Adrenal metastases status post radiation
-Continue dexamethasone
History of right upper extremity DVT
-Not on anticoagulation currently
COPD
-Continue inhalers
Hypothyroidism
-Continue levothyroxine
Hyperlipidemia
-Continue statin
Full code
DVT prophylaxis�SCDs
Regular diet
[2024-02-09 23:53] VITALS: BP 107/62; BMI 18.1
[2024-02-10] VITALS (8 sets, daily range): BP systolic 100–131; BP diastolic 58–64; BMI 18.1
[2024-02-10 00:02] LABS: Osmolality Urine 470 mOsm/kg (300-900); Urine Sodium 77 mmol/L (30-90)
[2024-02-10] MEDS: BENADRYL 50 MG PO ×2 (00:31→21:14)
--- NOTE | 2024-02-10 01:19 | TRANSFER ---
Pt arrived from ED via stretcher at 2330 w dx of anemia/hyponatremia. Pt was able to stand and pivot into bed. VSS, no c/o pain. Assessment as documented. Pt instructed on use of call toney for help w ambulation and other needs. Bed in lowest
position, call toney within reach.
[2024-02-10 06:31] LABS: ALT (SGPT) 31 U/L (0-35); AST (SGOT) 24 U/L (14-36); Alkaline Phosphatase 386 U/L (38-126); Blood Urea Nitrogen 30 mg/dl (7-17); Calcium 8.2 mg/dl (8.4-10.2); Carbon Dioxide 18 mmol/L (22-30); Chloride 103 mmol/L (98-107); Estimated Creatinine Clearance 57 ml/min; Glucose 134 mg/dl (70-99); Iron 21 ug/dl (37-170); Potassium 4.3 mmol/L (3.5-5.1); Sodium 129 mmol/L (135-145); Total Bilirubin 0.5 mg/dl (0.2-1.3); Total Protein 4.6 g/dl (6.3-8.2); eGFR > 60.00
[2024-02-10 06:41] LABS: Percent Saturation 16 % (20-50); Total Iron Binding Capacity 130 ug/dl (265-497)
[2024-02-10 07:04] LABS: % Basophils 0.1 % (0-2); % Immature Granulocytes 1.2 % (0-0.5); % Lymphocytes 1.1 % (20.5-51.1); % Monocytes 3.5 % (1.7-9.3); % Neutrophils 94.1 % (42.2-75.2); Absolute Immature Granulocytes 0.3 10^3/uL (0-0.05); Absolute Lymphocytes 0.3 10^3/uL (1.2-3.4); Absolute Monocytes 0.9 10^3/uL (0.1-0.6); Absolute Neutrophils 23.2 10^3/uL (1.4-6.5); Hemoglobin 7.1 g/dL (12.0-16.0); Mean Corp Hgb Conc. 32.3 g/dL (33.0-37.0); Mean Corpuscular Hgb 25.6 pg (27.0-31.0); Mean Corpuscular Volume 79.4 fL (81.0-99.0); Mean Platelet Volume 9.4 fL (7.4-10.4); Nucleated Red Blood Cells % 0 %; Platelet Count 152 10^3/uL (130-400); Red Blood Cell Count 2.77 10^6/uL (4.20-5.40); Red Cell Dist. Width 18.6 % (11.5-14.5); White Blood Cell Count 24.6 10^3/uL (4.8-10.8)
[2024-02-10 07:36] LABS: Folate 3.8 ng/ml (2.76-20); Vitamin B12 > 1000 pg/ml (239-931)
[2024-02-10] MEDS: DECADRON 2 MG PO ×2 (08:51→21:14)
--- NOTE | 2024-02-10 10:03 | CM ---
Addendum entered by Irlanda Skelton 02/10/24 14:52:
Patient lives with . They both drive. She has a niece for support. Patient owns a home. There are 3 steps to into inside. Patient is independent with a walker. Her PCP is Dr. Diaz. She uses [facility]. She is able to afford her
bills, medication, food, etc. Patient would like Palliative and home health care to come to her home, once she is discharged from the hospital.
Addendum entered by Irlanda Skelton 02/10/24 14:31:
CM reviewed patient's chart. CM introduced self and role.
Per hospitalist's note:
Patient received one unit of PRBC's today. Patient's heme-occult was positive. Patient's Na+ has improved from 126 to 129.
Addendum entered by Irlanda Skelton 02/10/24 14:25:
Patient's LOC was changed to inpatient. As of present, IMM was not given to patient yet.
Original Note:
CASTILLO explained to patient. Patient verbalized understanding.Patient signed and copy given to patient.
--- NOTE | 2024-02-10 11:35 | W.PN.HOSP.TC ---
Today's Communication/Plan
-
Monitor vital signs and see plan
Transfuse 1 unit blood today and monitor
PT/OT
Assessment / Plan
Assessment / Plan
General: Well Developed, Well Nourished and No Apparent Distress
HEENT: Normocephalic, Moist mucous membranes and Atraumatic
Respiratory: Clear
Cardiac: S1/S2 and Regular Rhythm; No Murmur or Rub
GI: Soft, Non Tender, Non Distended and Normal Bowel Sounds; No Organomegaly
Musculoskeletal: No Clubbing, No Cyanosis and No Edema
Neuro: Nonfocal/grossly intact
Fatigue likely multifactorial from slightly worsening anemia, worsening hyponatremia, deconditioning from chemotherapy
-See individually below
# Chronic microcytic anemia occasionally transfusion requiring likely due to chronic blood loss from colonic metastasis
-Hemoglobin now 7.1. Patient has been getting blood transfusion outpatient
Transfuse 1 unit PRBC and monitor.
-Rectal exam showed brown stool which was heme positive from malignancy
High ferritin load
-patient was seen by GI in August of this year at which time she was anemic with hemoglobin 4.5 and there is no role for colonoscopy/EGD at that time
-Regular diet
-Consider oncology consult; follows up with Dr. Rodriguez outpatient. last chemo was about 5 weeks ago, has not been able to get chemo due to lethargy
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
-Sodium of 126 from baseline around 130
-Check urine sodium, osmolality
-IV fluids given
-40 ounce fluid restriction
Leukocytosis secondary to chronic steroids
-Continue to monitor
Non-small cell metastatic lung cancer with metastases to colon/adrenal gland
-On chemotherapy
Adrenal metastases status post radiation
-Continue dexamethasone
History of right upper extremity DVT
-Not on anticoagulation currently
COPD
-Continue inhalers
Hypothyroidism
-Continue levothyroxine
Hyperlipidemia
-Continue statin
Severe protein calorie malnutrition secondary to malignancy
Cachexia
Full code
DVT prophylaxis�SCDs
I spent a total of 52 minutes with the patient or on the floor. More than 50% of this time involved counseling and coordination of care.
Anticipated Discharge: Within 24 hours
Subjective/Interval History
-
Date of Service: February 10, 2024
denies pain
Objective Data
-
Labs:
Laboratory Results
02/10/24
05:48
WBC 24.6 H
Hgb 7.1 L D
Hct 22.0 L
Plt Count 152 D
Sodium 129 L
Potassium 4.3
Chloride 103
Carbon Dioxide 18 L
BUN 30 H
Creatinine 0.6
Glucose 134 H
Calcium 8.2 L
Total Bilirubin 0.5
AST 24
ALT 31
Alkaline Phosphatase 386 H
Vital Signs:
Vital Signs
Temp Pulse Resp BP Pulse Ox
97.5 F 67 14 106/59 98
02/10/24 07:02 02/10/24 07:02 02/10/24 07:02 02/10/24 07:02 02/10/24 07:02
I&O
02/09/24 02/10/24 02/11/24
06:59 06:59 06:59
Intake Total 240 / 240
Balance 240 / 240
[2024-02-10] MEDS: CRESTOR 10 MG PO (21:13)
[2024-02-10] MEDS: VISBIOME 1 CAP PO (21:14)
[2024-02-10] MEDS: SYNTHROID 25 MCG PO (21:14)
[2024-02-10] MEDS: VITAMIN D3 (cholecalciferol) 50 MCG PO (21:14)
[2024-02-11 06:06] LABS: Hematocrit 27.2 % (37.0-47.0); Hemoglobin 9.1 g/dL (12.0-16.0); Mean Corp Hgb Conc. 33.5 g/dL (33.0-37.0); Mean Corpuscular Hgb 26.9 pg (27.0-31.0); Mean Corpuscular Volume 80.5 fL (81.0-99.0); Mean Platelet Volume 9.9 fL (7.4-10.4); Platelet Count 163 10^3/uL (130-400); Red Blood Cell Count 3.38 10^6/uL (4.20-5.40); Red Cell Dist. Width 17.5 % (11.5-14.5); White Blood Cell Count 23.3 10^3/uL (4.8-10.8)
[2024-02-11 06:28] LABS: % Basophils 0.1 % (0-2); % Immature Granulocytes 1.1 % (0-0.5); % Lymphocytes 1.6 % (20.5-51.1); % Monocytes 4.1 % (1.7-9.3); % Neutrophils 93.1 % (42.2-75.2); Absolute Immature Granulocytes 0.3 10^3/uL (0-0.05); Absolute Lymphocytes 0.4 10^3/uL (1.2-3.4); Absolute Neutrophils 21.7 10^3/uL (1.4-6.5); Nucleated Red Blood Cells % 0 %
[2024-02-11 07:40] VITALS: BP 135/68
[2024-02-11 08:06] LABS: ALT (SGPT) 26 U/L (0-35); AST (SGOT) 22 U/L (14-36); Albumin 2.2 g/dl (3.5-5.0); Alkaline Phosphatase 328 U/L (38-126); Blood Urea Nitrogen 28 mg/dl (7-17); Calcium 9.1 mg/dl (8.4-10.2); Carbon Dioxide 19 mmol/L (22-30); Chloride 102 mmol/L (98-107); Estimated Creatinine Clearance 57 ml/min; Glucose 119 mg/dl (70-99); Potassium 4.4 mmol/L (3.5-5.1); Sodium 129 mmol/L (135-145); Total Bilirubin 0.6 mg/dl (0.2-1.3); eGFR > 60.00
[2024-02-11 09:15] VITALS: BP 137/77; PULSE 74; O2SAT 100
[2024-02-11] MEDS: DECADRON 2 MG PO (09:54)
[2024-02-11 11:11] VITALS: BP 137/77; PULSE 74; O2SAT 100
--- NOTE | 2024-02-11 11:40 | W.PN.HOSP.TC ---
Addendum entered and electronically signed by Flo Amos MD 02/11/24 12:05:
Time of discharge 37 minutes
Original Note:
Today's Communication/Plan
-
Monitor vital signs see plan
PT/OT recommending SNF, patient leaning towards going home
Discharge today
Monitor hemoglobin
Patient to follow-up with oncology outpatient
Assessment / Plan
Assessment / Plan
General: Well Developed, Well Nourished and No Apparent Distress
HEENT: Normocephalic, Moist mucous membranes and Atraumatic
Respiratory: Clear
Cardiac: S1/S2 and Regular Rhythm; No Murmur or Rub
GI: Soft, Non Tender, Non Distended and Normal Bowel Sounds
Musculoskeletal: No Clubbing, No Cyanosis and No Edema
Neuro: Nonfocal/grossly intact
Fatigue likely multifactorial from slightly worsening anemia, worsening hyponatremia, deconditioning from chemotherapy
-See individually below
# Chronic microcytic anemia occasionally transfusion requiring likely due to chronic blood loss from colonic metastasis
-Hemoglobin now 9.1. Status post 1 unit PRBC 02/09. Patient has been getting blood transfusion outpatient
-Rectal exam showed brown stool which was heme positive from malignancy
High ferritin load
-patient was seen by GI in August of this year at which time she was anemic with hemoglobin 4.5 and there is no role for colonoscopy/EGD at that time
-Regular diet
-Consider oncology consult; follows up with Dr. Rodriguez outpatient. last chemo was about 5 weeks ago, has not been able to get chemo due to lethargy
She will benefit from outpatient blood transfusion, patient will discuss with oncology
# Acute on chronic hyponatremia likely secondary to SIADH
-Sodium now 129; cw fluid restriction
-40 ounce fluid restriction
Leukocytosis secondary to chronic steroids
-Continue to monitor
Non-small cell metastatic lung cancer with metastases to colon/adrenal gland
-On chemotherapy
Adrenal metastases status post radiation
-Continue dexamethasone
History of right upper extremity DVT
-Not on anticoagulation currently
COPD
-Continue inhalers
Hypothyroidism
-Continue levothyroxine
Hyperlipidemia
-Continue statin
Severe protein calorie malnutrition secondary to malignancy
Cachexia
Full code
DVT prophylaxis�SCDs
PT/OT recommending SNF. Patient does not want to go to rehab and agreeable for [facility]. Patient does have a niece that staying with them currently and they are in process of getting 03/02 care
Anticipated Discharge: Today
Subjective/Interval History
-
Date of Service: February 11, 2024
Feeling better
Objective Data
-
Labs:
Laboratory Results
02/11/24
05:44
WBC 23.3 H
Hgb 9.1 L D
Hct 27.2 L
Plt Count 163
Sodium 129 L
Potassium 4.4
Chloride 102
Carbon Dioxide 19 L
BUN 28 H
Creatinine 0.6
Glucose 119 H
Calcium 9.1
Total Bilirubin 0.6
AST 22
ALT 26
Alkaline Phosphatase 328 H
Vital Signs:
Vital Signs
Temp Pulse Resp BP Pulse Ox
97.9 F 62 16 135/68 98
02/11/24 07:40 02/11/24 07:40 02/11/24 07:40 02/11/24 07:40 02/11/24 07:40
I&O
02/10/24 02/11/24 02/12/24
06:59 06:59 06:59
Intake Total 240 / 240 1819
Balance 240 / 240 1819
--- NOTE | 2024-02-11 12:05 | W.DCSUMMARY ---
Discharge Summary
Discharge Data
Date of Admission: 02/10/24
Date of Discharge: 02/11/24
-
Pending Results: No
Hospital Course
78-year-old female with past medical history of non-small cell metastatic lung cancer with metastasis to colon/adrenal gland, right upper extremity DVT, COPD, hypertension, hyperlipidemia, anemia came to the hospital with fatigue which was likely
thought was multifactorial secondary to worsening anemia, hyponatremia and deconditioning from chemotherapy. Patient hemoglobin dropped to 7.1 so received 1 unit of blood transfusion which improved her hemoglobin to 9.1. It appears that she had
slow bleeding from her malignancy. She was instructed to follow-up closely with hematology outpatient and might benefit from outpatient blood transfusion. Subsequently her fatigue continue to improve after blood transfusion. For her hyponatremia
she was put on fluid restriction and her sodium also was improving. She was evaluated by physical therapy who recommended SNF however patient refused SNF and wanted to go home with [facility]. Once her hemoglobin was stable and her fatigue improved, she
was then discharged home with instructions to follow-up with all her physicians outpatient.
Discharge Plan
-
Patient Disposition: Home with Home Care
Discharge Diagnosis/Procedures: Fatigue likely multifactorial from slightly worsening anemia, worsening hyponatremia, deconditioning from chemotherapy
Acute on chronic anemia secondary to malignancy
Acute on chronic hyponatremia
Diet: As tolerated and Other diet
Additional Diets: Continue with 40 ounce fluid restriction
Activity: As tolerated
Driving Restrictions: As prior to admission
Bathing Restrictions: None
Blood Work: CBC and BMP next week with primary care provider or oncology
Referrals:
Margaret Diaz DO [Family Provider] - in less than 1 week
Marlene Rodriguez MD [Active] - in less than 1 week
Prescriptions:
New
acetaminophen 325 mg Tablet
650 mg PO Q4HPRN PRN (Reason: MILD PAIN) Qty: 0 0RF
Continued
rosuvastatin 10 mg Tablet
10 mg PO HS
Anoro Ellipta 62.5-25 mcg/actuation Blister With Device
1 inh INHALATION R DAILY
cholecalciferol (vitamin D3) [Vitamin D3] 50 mcg (2,000 unit) Capsule
50 mcg PO HS
levothyroxine 25 mcg tablet
25 mcg PO HS
docusate sodium [Stool Softener] 100 mg Capsule
100 mg PO HSPRN PRN (Reason: constipation)
Visbiome 112.5 billion cell Capsule
1 cap PO HS
dexamethasone 2 mg Tablet
2 mg PO BID
Patient Comments:
02/09/24: Patient states she had both dosages today already
coenzyme Q10 [CoQ-10] 100 mg Capsule
100 mg PO HS
diphenhydramine HCl 25 mg capsule
50 mg PO HS
Discontinued
ibuprofen-acetaminophen [Advil Dual Action] 125-250 mg Tablet
1 tab PO Q8HPRN PRN (Reason: mild pain)
Discharge Orders:
Discharge Patient (As Directed); Ordered 02/11/24
Ordered By: Flo Amos
Discharge Date and Time
Discharge Date/Time: 02/11/24 14:13
Print Language: AFGHAN
--- NOTE | 2024-02-11 12:11 | CM ---
CM following re: discharge planning.
Reviewed pt's chart, met with pt and pt's at bedside.
PT and OT evaluations noted - SNF level of care recommended. Both pt and her are aware, pt made a strong request to return back home with [facility] and pt politely declined SNF level of care. Pt stated her niece will help her at home. Pt's
supports pt's plan to return back home. CM explained the benefits of a SNF benefits and pt insisted ton return back home.
Discharge order noted. Both pt and her are aware, expressed their agreement with discharge. IMM reviewed, placed on chart, pt has a copy.
Please fax discharge instructions to [facility] at [phone]
D/C plan: home with [facility] and family support. Niece to transport.
[2024-02-11 13:45] VITALS: BP 135/72
== END 2024-02-11 14:13 | disposition home health service (06) | DRG 643 ==
LOC: 2 SOUTH 11:36
PROVIDERS: Nurse Practitioner; ADMITTING PHYSICIAN Hospitalist; ATTENDING PHYSICIAN Internal Medicine; EMERGENCY PHYSICIAN Emergency Medicine; FAMILY PHYSICIAN Family Medicine
PROC: 30243N1 Transfusion of Nonautologous Red Blood Cells into Central Vein, Percutaneous Approach (ICD-10-PCS; 2024-02-10)
DX: E22.2 Syndrome of inappropriate secretion of antidiuretic hormone (principal); E43 Unspecified severe protein-calorie malnutrition; C34.90 Malignant neoplasm of unspecified part of unspecified bronchus or lung; C78.5 Secondary malignant neoplasm of large intestine and rectum; C79.72 Secondary malignant neoplasm of left adrenal gland; C79.71 Secondary malignant neoplasm of right adrenal gland; Z68.1 Body mass index [BMI] 19.9 or less, adult; E88.A Wasting disease (syndrome) due to underlying condition; J44.9 Chronic obstructive pulmonary disease, unspecified; D63.0 Anemia in neoplastic disease; E03.9 Hypothyroidism, unspecified; D50.0 Iron deficiency anemia secondary to blood loss (chronic); I10 Essential (primary) hypertension; E78.5 Hyperlipidemia, unspecified; K59.00 Constipation, unspecified; D72.828 Other elevated white blood cell count; T38.0X5A Adverse effect of glucocorticoids and synthetic analogues, initial encounter; T45.1X5A Adverse effect of antineoplastic and immunosuppressive drugs, initial encounter; R53.81 Other malaise; R53.83 Other fatigue; Z79.52 Long term (current) use of systemic steroids; Z79.890 Hormone replacement therapy; Z79.899 Other long term (current) drug therapy; Z92.3 Personal history of irradiation; Z86.718 Personal history of other venous thrombosis and embolism; Z87.891 Personal history of nicotine dependence; Z87.19 Personal history of other diseases of the digestive system
CPT/HCPCS: 80053; 81003; 82607; 82728; 82746; 83540; 83550; 83935; 84300; 85025; 86850; 86900; 86901; 86920; 96361; 96374; 97163; 97167; 99285; P9016

== ENCOUNTER 2024-02-21 23:25 | Inpatient (IN) | payer MEDICARE, BC, SELFPAY ==
[2024-02-21 19:30] VITALS: BP 96/68
--- NOTE | 2024-02-21 20:22 | ED.GENMED ---
History of Present Illness
General
Chief Complaint: Cancer Problem
Source: patient and spouse
Exam Limitations: none
Time Seen by Provider: 02/21/24 19:49
History of Present Illness
History of Present Illness:
This is a 78 year old female that is brought in by ambulance with c/o trouble breathing. Called and spoke with . States that he felt she was having trouble breathing and that she was incoherent. States that she c/o arm and leg pain and side
pain which she has never done this before. States that she was seen by Palliative care this week and is being set up on Hospice on Friday. States that she was not given anything for pain. Patient Denies any fever, chills, chest pain, SOB, nausea,
vomiting, diarrhea, headache, dizziness, urinary burning.
When questioned patient that second time she said she has some abd discomfort.
Past History
Past History
ED Past Medical History: Cancer (Lung with mets to Colon), COPD, Hypercholesterolemia, Hypothyroidism and Other (memory loss, DVT, GI bleeding, Reynaud's, Neuropathy, Eczema, )
ED Past Surgical History: None and Other (Cataracts)
Social History
Tobacco: Former smoker
Alcohol: None
Drug: None
Personal:
Living: with family
Employment: Not employed
Review of Systems
Review of Systems
Other source history: family
All Other Systems: ROS reviewed and negative except as documented in HPI and ROS
Constitutional: Reports no symptoms; Denies fever or chills
EENT: Reports no symptoms
Respiratory: Reports trouble breathing (According to ); Denies cough
Cardiac: Reports no symptoms; Denies chest pain
ABD/GI: Reports abdominal pain; Denies nausea, vomiting or diarrhea
: Reports no symptoms; Denies dysuria, frequency or urgency
Musculoskeletal: Reports other (arm and leg pain according to )
Skin: Reports no symptoms
Neurological: Reports no symptoms; Denies dizzy or headache
Psychiatric: Reports no symptoms
Phy Exam
General Physical Exam
General Presentation: no apparent distress
General age: appears older than age
General Skin: warm and dry
General Habitus: debilitated, elderly and frail
General Mental: usual mental status
General Hydration: appears well hydrated
ENT Exam
ENT Exam: TM's normal, pharynx normal and neck supple
Eye Exam
Eye Exam: EOMI
Cardiovascular Exam
Cardiovascular Exam: regular rate/rhythm, no edema and normal peripheral pulses
Pulmonary Exam
Pulmonary Exam: no respiratory distress, no rales, chest non tender, no crackles, no rhonchi, no wheezing, no cough and decreased breath sounds
Gastrointestinal Exam
Gastrointestinal Exam: normal bowel sounds, non tender, soft, no organomegaly, no pulsatile mass and non distended
Musculoskeletal Exam
Musculoskeletal Exam: no edema and other (Patient needs help to move her legs)
Skin Exam
Skin Exam: normal color, warm/dry, no rash and no petechia
Psychiatric Exam
Psychiatric Exam: normal mood/affect
Course
Orders/Labs/Results
Orders:
Orders
02/21/24 20:21
HYDROmorphone [Dilaudid] 1 mg IM NOW STA
02/21/24 21:35
Complete Blood Count/With Diff Urgent
Comprehensive Metabolic Panel Urgent
02/21/24 23:00
Flush (0.9% Sodium Chloride) [Flush (Nss)] See Dose Instructions IV PER PROTOCOL
Abnormal Lab Results
02/21/24
21:35
WBC 27.8 H 10^3/uL
(4.8-10.8)
RBC 3.23 L 10^6/uL
(4.20-5.40)
Hgb 8.4 L g/dL
(12.0-16.0)
Hct 25.0 L %
(37.0-47.0)
MCV 77.4 L fL
(81.0-99.0)
MCH 26.0 L pg
(27.0-31.0)
RDW 17.9 H %
(11.5-14.5)
Plt Count 92 L 10^3/uL
(130-400)
Abs Immat Gran (auto) 0.4 H 10^3/uL
(0-0.05)
Absolute Neuts (auto) 25.3 H 10^3/uL
(1.4-6.5)
Absolute Lymphs (auto) 0.8 L 10^3/uL
(1.2-3.4)
Absolute Monos (auto) 1.2 H 10^3/uL
(0.1-0.6)
Immature Gran % 1.5 H %
(0-0.5)
Neutrophils % 91.0 H %
(42.2-75.2)
Lymphocytes % 3.0 L %
(20.5-51.1)
Sodium 123 L mmol/L
(135-145)
Chloride 94 L mmol/L
(98-107)
Carbon Dioxide 19 L mmol/L
(22-30)
BUN 55 H mg/dl
(7-17)
Creatinine 1.1 H mg/dL
(0.6-1.0)
Alkaline Phosphatase 342 H U/L
(38-126)
Total Protein 5.5 L g/dl
(6.3-8.2)
Albumin 2.5 L g/dl
(3.5-5.0)
02/21/24 21:35
02/21/24 21:35
Leukocytosis, H/H low consistent with prior labs, Thrombocytopenia, Hyponatremia, Chloride slightly low. carbon dioxide slightly low. Dehydration. Alk phos elevation. Total protein low. Albumin low.
Vital Signs
Initial and Last Documented VS:
Initial Vital Signs
Temp Pulse Resp BP Pulse Ox
97.6 F 99 18 96/68 97
02/21/24 19:30 02/21/24 19:30 02/21/24 19:30 02/21/24 19:30 02/21/24 19:30
Last Documented Vital Signs
Temp Pulse Resp BP Pulse Ox
97.6 F 94 16 96/68 97
02/21/24 19:30 02/21/24 21:52 02/21/24 21:52 02/21/24 19:30 02/21/24 21:52
MDM/Problems Addressed
Differential Diagnosis Includes:
Body aches,
MDM/Problems Addressed:
This is a 78 year old female that is going on Hospice on Friday. Spoke with and he starts that she c/o arm and leg pain and side pain which she has never done. States that she was seen by Palliative care this week and she was not given any
pain medication.
Patient does not want blood work. Will medicate for pain and spoke with again when he arrives.
Had a long conversation with . States that hospice will not be set up until Friday. Would like patient to have blood work and then stay in the hospital till Friday. States that he can't control her pain. Will get labs and admit.
Chronic conditions affecting care: Cancer
Acute Exacerbation and/or Progression of Chronic Illness: Cancer
*Pulse Oximetry
Patient hypoxic: no
Comment: 96% on room air
*EKG
Interpreted by ED Provider?: NA
Rate: EKG- N/A
*Improvement Coordinator Interpretation
Rate: Improvement Coordinator- N/A
*Critical Care Note
Total Time (30-74mins, 75-104mins- exclusive of procedures): Not Applicable
ED Attending Note
-
Portions of this chart may have been created with voice recognition software.� Occasional wrong word or��sound alike� substitutions may have occurred due to the inherent limitations of voice recognition software.
Discharge Plan
Departure
Patient Disposition: Admit
Date of Disposition: 02/21/24
Time of Disposition: 21:40
Admit to: Med/Surg
Presentation/result/management discussed w/ accepting MD/DO: Hospitalist
Patient with high blood pressure during this ER visit?: No
Condition: Fair
Covid-19: Not Applicable
Discharge Problem:
Inadequate pain control, Acute hyponatremia, Dehydration
Prescriptions:
No Action
rosuvastatin 10 mg Tablet
10 mg PO HS
Anoro Ellipta 62.5-25 mcg/actuation Blister With Device
1 inh INHALATION R DAILY
cholecalciferol (vitamin D3) [Vitamin D3] 50 mcg (2,000 unit) Capsule
50 mcg PO HS
levothyroxine 25 mcg tablet
25 mcg PO HS
docusate sodium [Stool Softener] 100 mg Capsule
100 mg PO HSPRN PRN (Reason: constipation)
Visbiome 112.5 billion cell Capsule
1 cap PO HS
dexamethasone 2 mg Tablet
2 mg PO BID
Patient Comments:
02/09/24: Patient states she had both dosages today already
coenzyme Q10 [CoQ-10] 100 mg Capsule
100 mg PO HS
diphenhydramine HCl 25 mg capsule
50 mg PO HS
acetaminophen 325 mg Tablet
650 mg PO Q4HPRN PRN (Reason: MILD PAIN) Qty: 0 0RF
Referrals:
UNKNOWN - PT NOT,INTERVIEWE [Family Provider] -
Interventions
Interventions:
*Risk Screen - Suicide Last Done: 02/21/24 19:30
*General Assessment Last Done: 02/21/24 19:30
*Neglect/Abuse Screening Last Done: 02/21/24 19:30
ED- Fall Risk Assessment Last Done: 02/21/24 19:45
Discharge Date and Time
Print Language: UKRAINIAN
[2024-02-21] MEDS: DILAUDID 1 MG IM (20:40)
--- NOTE | 2024-02-21 21:57 | HPS.HSE ---
Addendum entered and electronically signed by Deon Aguila DO 02/21/24 23:55:
Patient seen and examined independently. Agree with findings and plan as set forth by HALINA Lucia.
Patient is a 78y F with PMH significant for metastatic lung cancer who presents to ED complaining of pain all over and uncontrolled anxiety. Patient was evaluated by palliative care yesterday and reports plan is to sign up for Hospice
care on Friday. Today patient began complaining of pain in the arms, legs and side - which are new complaints according to the . She has missed 2 doses of dexamethasone today due to her symptoms. She has had poor PO intake at home.
Ass:
Uncontrolled Pain due to Malignancy
Metastatic Lung Cancer
Adrenal Insufficiency secondary to metastatic disease
Hyponatremia
YAEL
Hypovolemia
Blood Loss Anemia / GI Bleed
RUE DVT
Hypothyroidism
Plan:
Admit for further evaluation and treatment.
Patient sedate / sleeping in the ED at present.
Continue pain control as needed with Roxanol, IV morphine, etc.
IVFs overnight.
IV hydrocortisone for now given adrenal lesions, hypotension, hyponatremia and missed doses of dexamethasone.
Case Management/ Hospice consultation.
Original Note:
Family Physician
-
Family Physician: INTERVIEWE UNKNOWN - PT NOT
Chief Complaint
-
generalized bodyaches, decreased oral intake
History of Present Illness
78-year-old female from home complaining body aches all over today. She was Panicked her stated and panting with new nonproductive cough. She has been complaining of arm and leg pain along with side pain which she has never had before.
He states she was seen by palliative care yesterday and is being set up for hospice on Friday but was not given anything for pain. She missed her decadron today and has not been eating or drinking at home . Family denies fever, chills, cp, syncope,
diaphoresis , vomiting, diarrhea .
she had a recent admission 02/09 - 02/11/2024 due to drop in hemoglobin is 7.1 where she received 1 unit of PRBC with improvement to hemoglobin of 9.1. Bleeding was thought to be due to her underlying malignancy. Patient with history of non-small
cell metastatic adenocarcinoma lung CA with mets to colon/adrenal gland. She was recommended to go to SNF however she wanted to return to home. She also received 2 units of [place] [facility] Other past medical history
includes right upper extremity DVT, GI bleed, COPD, former smoker HTN, HLD, memory loss, deconditioning from chemotherapy, hyponatremia, acute on chronic anemia, neuropathic pain, Raynaud's anxiety, insomnia
Medical History
Past Medical History
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
Past Surgical History: Reports Other (Cataracts))
Social History
Tobacco: Non-smoker
Alcohol: Occasional
Drug: None
Personal:
Living: With Family ( )
Family History
Family History: Not pertinent
Allergies / Home Medications
Allergies reflects when Allergies were last updated in [facility].
Home Medications with original date entered in [facility]
Allergy/Medication List:
Allergies
Allergy/AdvReac Type Severity Reaction Status Date / Time
cat dander Allergy Unknown Verified 02/21/24 19:44
pollen extracts Allergy SEASONAL Verified 02/21/24 19:44
Home Medications
rosuvastatin 10 mg tablet 10 mg PO HS High Cholesterol 02/12/22
umeclidinium 62.5 mcg-vilanterol 25 mcg/actuation powdr for inhalation (Anoro Ellipta) 1 inh inhalation R DAILY Lung/Breathing Issues 07/01/22
cholecalciferol (vitamin D3) 50 mcg (2,000 unit) capsule (Vitamin D3) 50 mcg PO HS Supplement 11/11/22
levothyroxine 25 mcg tablet 25 mcg PO HS Thyroid 08/25/23
Lactobac no.2-Bifidobac no.1-S. thermo 112.5 billion cell capsule (Visbiome) 1 cap PO HS Gastrointestinal Issue 09/01/23
docusate sodium 100 mg capsule (Stool Softener) 100 mg PO HSPRN PRN constipation 09/01/23
dexamethasone 2 mg tablet 2 mg PO BID Anti-Inflammatory 01/03/24
coenzyme Q10 100 mg capsule (CoQ-10) 100 mg PO HS Heart Disease/Condition 02/09/24
diphenhydramine HCl 25 mg capsule 50 mg PO HS Allergies 02/09/24
acetaminophen 325 mg tablet 650 mg (2 x 325 mg) PO Q4HPRN PRN MILD PAIN #0 tabs 02/11/24
Review of Systems
-
History Source: Family ( and daughter at bedside )
A 12 point ROS was completed and negative except as noted: Yes
Constitutional: Reports Fatigue and Other (body aches ); Denies Fever
EENT: Denies Sore Throat or Runny Nose
Respiratory: Reports Cough (nonproductive ); Denies Trouble Breathing
Cardiac: Denies Chest Pain, Palpitations or Syncope
Abdomen/GI: Reports Nausea; Denies Abdominal Pain, Vomiting, Diarrhea or Constipated
: Denies Dysuria, Frequency, Flank Pain or Incontinence
Musculoskeletal: Reports Joint Pain (chronic bilat knee pain )
Skin: Denies Rash
Neurological: Reports Weakness (generalized )
Endocrine: Reports No Symptoms
Hematologic/Lymphatic: Reports No Symptoms
Psych: Reports Other (sedated after iv pain meds)
Physical Exam
Vital Signs
Vital Signs
Temp Pulse Resp BP Pulse Ox
97.6 F 94 16 96/68 97
02/21/24 19:30 02/21/24 21:52 02/21/24 21:52 02/21/24 19:30 02/21/24 21:52
Physical Exam
General: Cachectic and Other (sedated after iv pain meds does open eyes but does not answer questions); No Fever
HEENT: NormoCephalic, Anicteric, PERRLA, [place] Conjunctivae, No Ptosis and Other (dry oral mucosa)
Respiratory: Clear; No Wheezes, Rales or Rhonchi
Cardiac: S1/S2 and Regular Rhythm; No Murmur, Rub, Gallop or Peripheral Edema
GI: Soft, Non Tender, Non Distended and No Hepatosplenomegaly
Genito-urinary: Deferred by me
Musculoskeletal: No Clubbing, No Cyanosis and No Edema
Skin: Warm, Dry and IV/Catheter Site (port right upper chest wall); No Rash, Jaundice or Ulcers
Neuro: Other (sedated after iv pain meds does open eyes but does not answer questions); No Facial Droop or Tremors
Psych: Calm
Data Reviewed
-
Lab Data: Labs Reviewed by me
Impression/Plan
-
Impression/Plan:
Admit to Med surg
#Generalized pain - multifactorial
- liquid roxanol prn
- zofran prn
--CONSULT HOSPICE per family request - pt has home aids 24 hours and hospital bed
#Adrenal insuff /Known adrenal mass
-iv solucortef 50 mg q8h( missed doses of decadron 2mg po bid today)
#YAEL 2/2 volume depletion
IV 60 cc/hr X 500 cc
- follow bmp
#Adenocarcinoma/Non-small cell metastatic lung cancer with metastases to colon/adrenal gland
-On chemotherapy last was 5 weeks ago
-CONSULT HOSPICE per family request - pt has home aids 24 hours and hospital bed
# Chronic hyponatremia
-Sodium 123
- Iv nss
follow bmp
#History of right upper extremity DVT 04/10/2023
U/S 04/10/23 :CHRONIC COMPLETE OCCLUSIVE THROMBOSIS of the RIGHT CEPHALIC VEIN in the upper arm, elbow, and forearm.
-Not on anticoagulation currently
# acute on Chronic anemia with recent GI bleed 02/09 - 02/11/2024 likely secondary to metastatic adenocarcinoma/colonic mets
did receive 1 unit rbc's improved from 7.1 to 9.1 and fatigue improved on 02/09
she did receive 2 units of prbc's on 02/11 at [facility]
HGB 8.4 today 02/21/24
-patient was seen by GI in August of this year at which time she was anemic with hemoglobin 4.5 and there is no role for colonoscopy/EGD at that time
#Leukocytosis secondary to chronic steroids
-Continue to monitor
#COPD- no acute exacerbation
-Continue inhalers
#Hypothyroidism
-Continue levothyroxine
#Hyperlipidemia
-Continue statin
#Anxiety - no current meds
#neuropathic pain hx
Raynaud's
# insomnia hx
#Severe protein calorie malnutrition secondary to malignancy
Cachexia
DVT prophylaxis- comfort care
DNR
[2024-02-21 22:02] LABS: % Basophils 0.1 % (0-2); % Immature Granulocytes 1.5 % (0-0.5); % Monocytes 4.4 % (1.7-9.3); Absolute Immature Granulocytes 0.4 10^3/uL (0-0.05); Absolute Lymphocytes 0.8 10^3/uL (1.2-3.4); Absolute Monocytes 1.2 10^3/uL (0.1-0.6); Absolute Neutrophils 25.3 10^3/uL (1.4-6.5); Hemoglobin 8.4 g/dL (12.0-16.0); Mean Corp Hgb Conc. 33.6 g/dL (33.0-37.0); Mean Corpuscular Volume 77.4 fL (81.0-99.0); Mean Platelet Volume 9.9 fL (7.4-10.4); Nucleated Red Blood Cells % 0 %; Platelet Count 92 10^3/uL (130-400); Red Blood Cell Count 3.23 10^6/uL (4.20-5.40); Red Cell Dist. Width 17.9 % (11.5-14.5); White Blood Cell Count 27.8 10^3/uL (4.8-10.8)
[2024-02-21 22:13] LABS: ALT (SGPT) 22 U/L (0-35); AST (SGOT) 27 U/L (14-36); Albumin 2.5 g/dl (3.5-5.0); Alkaline Phosphatase 342 U/L (38-126); Blood Urea Nitrogen 55 mg/dl (7-17); Carbon Dioxide 19 mmol/L (22-30); Chloride 94 mmol/L (98-107); Glucose 92 mg/dl (70-99); Potassium 4.4 mmol/L (3.5-5.1); Sodium 123 mmol/L (135-145); Total Bilirubin 1.1 mg/dl (0.2-1.3); Total Protein 5.5 g/dl (6.3-8.2); eGFR 51.43
[2024-02-21 23:16] VITALS: BP 99/58
[2024-02-21] MEDS: SOLU-CORTEF 50 MG IV (23:33)
[2024-02-22 00:30] VITALS: BP 108/64; BMI 15.9
[2024-02-22] MEDS: FLUSH (NSS) 1 FLUSH IV (00:56)
[2024-02-22] MEDS: NSS 500 IV ×2 (00:56→17:37)
[2024-02-22] MEDS: ZOFRAN 4 MG IV (00:58)
--- NOTE | 2024-02-22 01:00 | PTCARENOTE ---
Pt. admitted from E.D., AAO x 3, pulled over from stretcher, pt. weak, IVF's started and Zofran given for nausea, call toney within reach.
[2024-02-22 07:00] VITALS: BP 113/67
[2024-02-22] MEDS: SOLU-CORTEF 50 MG IV ×3 (07:29→23:16)
[2024-02-22] MEDS: STRIVERDI RESPIMAT 2 PUFF INH (07:50)
[2024-02-22] MEDS: SPIRIVA RESPIMAT 2.5 MCG 2 PUFF INH (07:50)
[2024-02-22 08:00] VITALS: BMI 15.7
--- NOTE | 2024-02-22 09:28 | PTOTSP ---
Speech Therapy
Presentation: Patient was oriented and willing to participate. Patient's speech and language appeared to be WNL during conversation. Of note, patient's vocal quality was weak which patient states is her baseline.
Swallowing Function: Patient was observed with several bites of cracker and sips of thin liquids in which patient appeared to tolerate as she did not exhibit any overt clinical s/sx of aspiration. Patient demonstrated mild prolonged mastication of
cracker which she adequately manipulated with thin liquid wash.
Recommendations:
1) Continuation of regular consistency solids and thin liquids
2) Standard aspiration precautions
3) Medications as tolerated
4) Consideration of nutrition consult given her poor intake
Plan: MANAGER SCIENTIFIC will sign off at this time as patient appeared to be demonstrated her baseline speech and swallowing function. Please re-consult if clinically indicated.
--- NOTE | 2024-02-22 09:42 | W.PN.HOSP.TC ---
Today's Communication/Plan
-
comfort care pending hospice
Assessment / Plan
Assessment / Plan
78yo F with PMHX of Adenocarcinoma of the R lung with multiorgan involvement and adrenal mets with adrenal insufficiency, last chemo 3 weeks ago, unfortunately cancer is in terminal stage and oncologist started on work on hospice approach. Patient
was bropughht to the hospital 2/2 UE and LE pains and had no pain meds at home. Patient deferred all decisions to . He is agreeable with comfort onl;y approach that will entail symptomatic management only without invasive or
non-invasive diagnostic or therapeutic procedures. He verbalized understanding of this approaach. Will await establishing of the home hospice services as agreed with family
A/P:
#Adenocarcinoma of the R lung with multiorgan involvement and adrenal mets with adrenal insufficiency
#Hypothyroidism
#Hospice care
#Leukocytosis 2/2 steroids
#Pain 2/2 multiorgan ments
Morphine for pain, Ativan for SOB and anxiety
Hospice consult by CM
Avoid blood test
Comfort care only
DVT ppx not indicated
DNR\\DNI
I have spent at least 68min reviewing chart, test results, communication with family and direct patient care
Anticipated Discharge: 24 - 48 hours
Subjective/Interval History
-
Date of Service: February 22, 2024
Objective Data
-
Labs:
Laboratory Results
02/21/24 02/22/24
21:35 06:00
WBC 27.8 H
Hgb 8.4 L
Hct 25.0 L
Plt Count 92 L
Sodium 123 L Cancelled
Potassium 4.4 Cancelled
Chloride 94 L Cancelled
Carbon Dioxide 19 L Cancelled
BUN 55 H Cancelled
Creatinine 1.1 H Cancelled
Glucose 92 Cancelled
Calcium 9.0 Cancelled
Total Bilirubin 1.1 Cancelled
AST 27 Cancelled
ALT 22 Cancelled
Alkaline Phosphatase 342 H Cancelled
Vital Signs:
Vital Signs
Temp Pulse Resp BP Pulse Ox
97.4 F 77 16 113/67 99
02/22/24 07:00 02/22/24 07:54 02/22/24 07:54 02/22/24 07:00 02/22/24 07:54
I&O
02/21/24 02/22/24 02/23/24
06:59 06:59 06:59
Intake Total 360 / 360
Balance 360 / 360
Review of Systems
-
History Source: Patient and Family
All other systems: Reviewed and negative
Constitutional: Reports Other (diffuse body pain)
Physical Exam
-
General: No Apparent Distress
HEENT: Normocephalic
Respiratory: Clear to Auscultation
Cardiac: Regular Rhythm
GI: Soft, Nontender and Nondistended
Genito-urinary: No Costovertebral Tender
Musculoskeletal: No Clubbing, No Cyanosis and No Edema
Skin: Warm
Psych: Calm
--- NOTE | 2024-02-22 12:37 | HOSPNOTE ---
Spoke with this patients this morning. Hospice philosophy and care was explained to him. He would like Hospice services once the patient is discharged. DR Ulloa was made aware of same. Plan is to discharge this patient on 02/22/14.
states he does not need any DME in the home at this time.
--- NOTE | 2024-02-22 13:34 | CM ---
Addendum entered by Leti Del Angel 02/22/24 16:08:
Pharmacy verified: [facility] @ [address] [facility], [place]
Family Physician verified: Margaret Diaz DO; [address] [facility] [place] [address];
Addendum entered by Leti Del Angel 02/22/24 16:02:
Met with patient and family at bedside
IMM benefit explained; form signed @ 1553
Patient and spouse live in a multilevel home; Ramps to enter; Elevator in the home
Prior to 4 weeks ago, family reported that patient was independent w/ ambulation and personal care
Home Health Aid the past week
Ambulance pickling grader scheduled for 10:00 AM tomorrow
No SNF utilization
DME: rolling walker, wheelchair, hospital bed
Plan: discharge to home tomorrow via ambulance with Home Hospice
Addendum entered by Leti Del Angel 02/22/24 15:42:
OOH DNR on chart for Attending to sign; Attending Notified
Ambulance pickling grader scheduled for 10:00 AM tomorrow
Original Note:
Plan: discharge to home tomorrow, 02/22, with [facility]; oil heaterman requested early ambulance pickling grader
10:00 AM pickling grader requested; transport form faxed to [address] [place] [address] Clerk with request to schedule today
[2024-02-22 15:25] VITALS: BP 100/63
[2024-02-22] MEDS: NSS IV (20:18)
[2024-02-22] MEDS: SYNTHROID 25 MCG PO (20:21)
[2024-02-22 23:48] VITALS: BP 109/59
[2024-02-23] MEDS: NSS IV (03:06)
[2024-02-23 07:00] VITALS: BP 111/57
[2024-02-23] MEDS: SPIRIVA RESPIMAT 2.5 MCG 2 PUFF INH (07:41)
[2024-02-23] MEDS: STRIVERDI RESPIMAT 2 PUFF INH (07:41)
[2024-02-23] MEDS: SOLU-CORTEF 50 MG IV (08:01)
--- NOTE | 2024-02-23 08:29 | W.DCSUMMARY ---
Discharge Summary
Discharge Data
Date of Admission: 02/21/24
Date of Discharge: 02/23/24
-
Pending Results: No
Hospital Course
78yo F with PMHX of Adenocarcinoma of the R lung with multiorgan involvement and adrenal mets with adrenal insufficiency, last chemo 3 weeks ago, unfortunately cancer is in terminal stage and oncologist started on work on hospice approach. Patient
was bropughht to the hospital 2/2 UE and LE pains and had no pain meds at home. Patient deferred all decisions to . He is agreeable with comfort only approach that will entail symptomatic management only without invasive or
non-invasive diagnostic or therapeutic procedures including labs. He verbalized understanding of this approach. Home hospice services were established as agreed with family
I have spent at least 38min preparing d/c
Patient was managed for:
#Adenocarcinoma of the R lung with multiorgan involvement and adrenal mets with adrenal insufficiency
#Hypothyroidism
#Hospice care
#Leukocytosis 2/2 steroids
#Pain 2/2 multiorgan ments
#Hyponatremia
Discharge Plan
-
Patient Disposition: Home with Home Care
Discharge Diagnosis/Procedures: Terminal cancer
Diet: Regular
Driving Restrictions: As prior to admission
Referrals:
Margaret Diaz DO [Family Provider] -
Prescriptions:
Continued
rosuvastatin 10 mg Tablet
10 mg PO HS
Anoro Ellipta 62.5-25 mcg/actuation Blister With Device
1 inh INHALATION R DAILY
cholecalciferol (vitamin D3) [Vitamin D3] 50 mcg (2,000 unit) Capsule
50 mcg PO HS
levothyroxine 25 mcg tablet
25 mcg PO HS
docusate sodium [Stool Softener] 100 mg Capsule
100 mg PO HSPRN PRN (Reason: constipation)
Visbiome 112.5 billion cell Capsule
1 cap PO HS
dexamethasone 2 mg Tablet
2 mg PO BID
Patient Comments:
7/29/24: Patient states she had both dosages today already
coenzyme Q10 [CoQ-10] 100 mg Capsule
100 mg PO HS
diphenhydramine HCl 25 mg capsule
50 mg PO HS
acetaminophen 325 mg Tablet
650 mg PO Q4HPRN PRN (Reason: MILD PAIN) Qty: 0 0RF
Discharge Orders:
Discharge Patient (As Directed); Ordered 02/23/24
Ordered By: Markie Ulloa
Discharge Date and Time
Print Language: [place] CITIZEN
--- NOTE | 2024-02-23 09:47 | CM ---
manager delivery reviewed patient's chart and plan is for home today on [facility], patient has a 10am pick by ambulance, all equipment has been delivered to patient's home per hospice.
Plan; Home today with [facility] by ambulance.
--- NOTE | 2024-02-23 09:47 | HOSPNOTE ---
Spoke with spouse and confirmed patient will be discharged at 10am this morning. Discharge order is in and case management aware. I spoke with floor RN and confirmed discharge and nurse is aware. Once patient is home she will be admitted onto
hospice services. OOH DNR will be needed on chart.
--- NOTE | 2024-02-23 10:33 | W.PN.HOSP.TC ---
Today's Communication/Plan
-
DC
Assessment / Plan
Assessment / Plan
78yo F with PMHX of Adenocarcinoma of the R lung with multiorgan involvement and adrenal mets with adrenal insufficiency, last chemo 3 weeks ago, unfortunately cancer is in terminal stage and oncologist started on work on hospice approach. Patient
was bropughht to the hospital 2/2 UE and LE pains and had no pain meds at home. Patient deferred all decisions to . He is agreeable with comfort onl;y approach that will entail symptomatic management only without invasive or
non-invasive diagnostic or therapeutic procedures. He verbalized understanding of this approaach. Will await establishing of the home hospice services as agreed with family
A/P:
#Adenocarcinoma of the R lung with multiorgan involvement and adrenal mets with adrenal insufficiency
#Hypothyroidism
#Hospice care
#Leukocytosis 2/2 steroids
#Pain 2/2 multiorgan ments
Morphine for pain, Ativan for SOB and anxiety
Hospice consult by CM
Avoid blood test
Comfort care only
DVT ppx not indicated
DNR\\DNI
I have spent at least 68min reviewing chart, test results, communication with family and direct patient care
Anticipated Discharge: Today
Subjective/Interval History
-
Date of Service: February 23, 2024
Objective Data
-
Vital Signs:
Vital Signs
Temp Pulse Resp BP Pulse Ox
97.4 F 62 16 111/57 99
02/23/24 07:00 02/23/24 07:41 02/23/24 07:41 02/23/24 07:00 02/23/24 07:41
I&O
02/22/24 02/23/24 02/24/24
06:59 06:59 06:59
Intake Total 360 / 360 960 / 960
Balance 360 / 360 960 / 960
Review of Systems
-
All other systems: Reviewed and negative
Physical Exam
-
General: No Apparent Distress
Respiratory: Clear to Auscultation
Cardiac: Regular Rhythm
GI: Soft, Nontender and Nondistended
== END 2024-02-23 10:17 | disposition hospice, home (50) | DRG 947 ==
LOC: 4 WEST ACU 23:25
PROVIDERS: Clinical Nurse Specialist Family Health; ADMITTING PHYSICIAN Hospitalist; ATTENDING PHYSICIAN Internal Medicine; EMERGENCY PHYSICIAN Emergency Medicine; FAMILY PHYSICIAN Family Medicine
DX: G89.3 Neoplasm related pain (acute) (chronic) (principal); E43 Unspecified severe protein-calorie malnutrition; C78.5 Secondary malignant neoplasm of large intestine and rectum; C79.71 Secondary malignant neoplasm of right adrenal gland; C79.72 Secondary malignant neoplasm of left adrenal gland; C34.91 Malignant neoplasm of unspecified part of right bronchus or lung; E27.49 Other adrenocortical insufficiency; N17.9 Acute kidney failure, unspecified; Z51.5 Encounter for palliative care; Z66 Do not resuscitate; E87.1 Hypo-osmolality and hyponatremia; Z68.1 Body mass index [BMI] 19.9 or less, adult; R64 Cachexia; D50.0 Iron deficiency anemia secondary to blood loss (chronic); I10 Essential (primary) hypertension; J44.9 Chronic obstructive pulmonary disease, unspecified; D63.0 Anemia in neoplastic disease; E03.9 Hypothyroidism, unspecified; I95.9 Hypotension, unspecified; R54 Age-related physical debility; E86.0 Dehydration; E86.1 Hypovolemia; D72.829 Elevated white blood cell count, unspecified; T38.0X5A Adverse effect of glucocorticoids and synthetic analogues, initial encounter; E78.5 Hyperlipidemia, unspecified; G62.9 Polyneuropathy, unspecified; G47.00 Insomnia, unspecified; I73.00 Raynaud's syndrome without gangrene; F41.9 Anxiety disorder, unspecified; R41.3 Other amnesia; Z79.52 Long term (current) use of systemic steroids; Z79.890 Hormone replacement therapy; Z79.899 Other long term (current) drug therapy; Z86.718 Personal history of other venous thrombosis and embolism; Z87.19 Personal history of other diseases of the digestive system; Z87.891 Personal history of nicotine dependence; Z92.3 Personal history of irradiation
CPT/HCPCS: 80053; 85025; 92610; 94640; 96372; 99284